=== PATIENT | male | born 1955 | race American Indian/Alaskan Native ===

== ENCOUNTER 2017-02-02 13:17 | Outpatient (CLI) | payer BC ==
--- NOTE | 2017-02-03 12:22 | Magnetic Resonance Report ---
MRI of the lumbar spine without contrast. History: L5 radiculopathy. Procedure: Sagittal T1-weighted, T2-weighted, inversion recovery images, and axial T1 and T2 weighted images were performed. Findings: Motion artifact degrades image quality on several sequences, especially the axial images. The L1 and L2-3 levels are unremarkable. At the L3-4 level, there is moderate disc space narrowing with reactive changes of the endplates. At the L4-5 level, there is severe disc space narrowing with reactive changes at both endplates. There is mild retrolisthesis of L4 on 5 due to degenerative changes. There is a mild central disc bulge. There is facet joint DJD and hypertrophy with mild ligamentum flavum hypertrophy. There is bilateral foraminal stenosis. L5-S1, there is moderate disc space narrowing with no significant disc bulge or herniation. There is a transitional vertebra at S1. The conus is in normal position. Multiple Schmorl's nodes are seen throughout the lower thoracic and upper lumbar spine. Impression: Multilevel degenerative disc disease as detailed above, most pronounced at L4-5 where there is associated mild retrolisthesis of L4 on 5 with bilateral foraminal stenosis.
--- NOTE | 2017-02-09 11:27 | XRay Report ---
SCOLIOSIS SURVEY, ONE VIEW History: Scoliosis, L5 radiculopathy. Findings: A limited AP view of the thoracic and lumbar spine is presented. There is poor positioning of the patient. 12 thoracic vertebra and 5 lumbar vertebra are identified. There is moderate spondylosis. No fracture or bone lesion. Mild dextroscoliosis from the superior endplate of T5 to the inferior endplate of T11 measures 6.4 degrees. Mild compensatory levoscoliosis from the superior endplate of T12 to the inferior endplate of L5 measures 7.7 degrees. Impression: Mild scoliosis as described. Spondylosis.
== END 2017-02-02 13:18 | disposition home or self-care (01) ==
LOC: MRI 13:17
PROVIDERS: ATTEND Specialist
DX: M48.06 Spinal stenosis, lumbar region (principal); M47.896 Other spondylosis, lumbar region; M51.46 Schmorl's nodes, lumbar region; M51.44 Schmorl's nodes, thoracic region; M51.26 Other intervertebral disc displacement, lumbar region
CPT/HCPCS: 72081; 72148

== ENCOUNTER 2017-12-25 19:10 | Inpatient (IN) | payer BC ==
--- NOTE | 2017-12-25 20:23 | Emergency Department Report ---
ED Fall HPI - General Chief Complaint: Pain General Stated Complaint: FALL/ HIP PAIN Time Seen by Provider: 12/25/17 20:08 Source: patient Mode of arrival: Stretcher - History of Present Illness Initial Comments: Mr. Paniagua is a very pleasant 62-year-old male who presents with fall. He has a history of gait instability for the last 2 years. He also has a history of alcoholic liver cirrhosis and chronic kidney disease. He is followed by [facility] for primary care. He also followed by [facility]. He also followed by orthopedic surgeon Dr. Mcqueen. He requires a cane with ambulation. However when attempting to close shades at home on Thursday, he fell to his left. He fell onto his left hip. He has severe pain. is noted worsening generalized weakness over the last week. He does have a history of elevated ammonia levels. However he does not like taking the lactulose due to GI effects. did notice that he did have some confusion and hallucinations. However when she was able to sneak in a dose of lactulose, he appeared much better after a bowel movement. Currently severe pain is in the left hip. He has had gait instability which has led to extensive outpatient evaluation. He does have known lumbar radiculopathy. [facility] is evaluating for a potential neurological causes. Complaint: fall Fall From: standing When Fall Occurred: other (Thursday 4 days ago) Fall Witnessed: yes, by family Place Fall Occurred: home Loss of Consciousness: none Prolonged Down Time?: no Symptoms Prior to Fall: none Location: other (left hip left shoulder left ankle) Severity: severe Quality: sharp Context: tripped/slipped - Related Data Allergies Allergy/AdvReac Type Severity Reaction Status Date / Time shellfish derived Allergy Swelling Unverified 02/02/17 13:17 ED Review of Systems ROS: Stated complaint: FALL/ HIP PAIN Other details as noted in HPI Constitutional: no symptoms reported, malaise. denies: fever ENT: denies: throat pain Respiratory: denies: cough Cardiovascular: denies: chest pain, palpitations Gastrointestinal: denies: abdominal pain, nausea, vomiting Neurological: confusion, abnormal gait. denies: headache, numbness, paresthesias ED Past Medical Hx - Past Medical History Hx Hypertension: Yes - Surgical History Past Surgical History?: No - Social History Smoking Status: Never Smoker ED Physical Exam - General Limitations: Language Barrier General appearance: alert, in no apparent distress, other (pleasant alert insightful able to give a full history.) - Head Head exam: Present: atraumatic, normocephalic - Eye Eye exam: Present: normal appearance. Absent: scleral icterus, conjunctival injection - ENT ENT exam: Present: mucous membranes moist - Neck Neck exam: Present: normal inspection. Absent: tenderness, meningismus - Respiratory Respiratory exam: Present: normal lung sounds bilaterally. Absent: respiratory distress, wheezes, rales, rhonchi - Cardiovascular Cardiovascular Exam: Present: regular rate, normal rhythm. Absent: systolic murmur, diastolic murmur, rubs, gallop - GI/Abdominal GI/Abdominal exam: Present: soft, normal bowel sounds. Absent: distended, tenderness, guarding, rebound - Rectal Rectal exam: Present: deferred - Extremities Exam Extremities exam: Present: other (left hip tenderness skin intact, no shoulder tenderness full range of motion, no ankle tenderness full range of motion) - Back Exam Back exam: Present: normal inspection - Neurological Exam Neurological exam: Present: alert, oriented X3 - Psychiatric Psychiatric exam: Present: normal affect, normal mood - Skin Skin exam: Present: warm, dry, intact, normal color. Absent: rash - Other Other exam information: 2+ DP pulse both extremities Left lower extremity: Shortened and externally rotated and adducted ED Course Vital Signs 12/25/17 12/25/17 19:18 20:13 Temperature 98.4 F Pulse Rate 80 Respiratory 18 18 Rate Blood Pressure 138/92 ED Medical Decision Making - Lab Data Result diagrams: 12/25/17 20:46 12/25/17 20:46 Laboratory Results - last 24 hr 12/25/17 12/25/17 12/25/17 20:46 20:46 20:46 WBC 3.1 L RBC 3.29 L Hgb 10.2 L Hct 34.0 L MCV 103 H MCH 31 MCHC 30 L RDW 17.6 H Plt Count 127 L [place] % (Auto) Wireless Field Technician Sodium 138 Potassium 4.7 Chloride 100.8 Carbon Dioxide 21 L Anion Gap 21 BUN 84 H Creatinine 5.4 H Estimated GFR 13 BUN/Creatinine Ratio 16 Glucose 119 H Calcium 9.0 Total Bilirubin 0.50 AST 35 ALT 14 Alkaline Phosphatase 122 Ammonia 45.0 Total Protein 6.4 Albumin 3.5 L Albumin/Globulin Ratio 1.2 Vital Signs - 24 hr 12/25/17 12/25/17 19:18 20:13 Temperature 98.4 F Pulse Rate 80 Respiratory 18 18 Rate Blood Pressure 138/92 - EKG Data 12/25/17 21:36 rate 85 bpm left axis deviation no signs of ischemia no ST elevation NSR - Radiology Data Radiology results: image reviewed interpreted by me: Left intertrochanteric femur fracture - Medical Decision Making Mr. Paniagua presents with fall and subsequent generalized weakness. baseline gait instability. Left intertrochanteric femur fracture. Dr. Farley orthopedic surgeon will consult. Dr. Reddy hospitalist will admit. Critical care attestation.: If time is entered above; I have spent that time in minutes in the direct care of this critically ill patient, excluding procedure time. ED Disposition Clinical Impression: Femur fracture, left, Cirrhosis, CKD (chronic kidney disease) Disposition: OP ADMIT IP TO THIS HOSP Is pt being admited?: Yes Does the pt Need Aspirin: No Condition: Stable Referrals: PRIMARY CARE, [Primary Care Provider] - 3-5 Days Time of Disposition: 20:27
[2017-12-25] MEDS ORDERED: ZOFRAN IV ONE ×2 (20:28→22:41)
[2017-12-25] MEDS ORDERED: MORPHINE IV ONE (20:28)
--- NOTE | 2017-12-25 20:47 | XRay Report ---
FINAL REPORT EXAM: XR SHOULDER 2+V LT HISTORY: fall TECHNIQUE: 3 views of the left shoulder PRIORS: None. FINDINGS: There is no evidence of acute fracture or subluxation. The glenohumeral and acromioclavicular joints are normally aligned. There is mild osteophyte formation of the acromioclavicular joint. The bones are normally mineralized. The soft tissues are unremarkable. IMPRESSION: No evidence of acute fracture
--- NOTE | 2017-12-25 20:50 | XRay Report ---
FINAL REPORT EXAM: XR KNEE 1-2V LT HISTORY: post fall knee pain TECHNIQUE: Two portable views of the left knee PRIORS: None. FINDINGS: The bones are normally aligned and mineralized. The joint spaces are well-preserved. There is no evidence of acute fracture. The soft tissues are unremarkable. IMPRESSION: No evidence of acute fracture or subluxation.
--- NOTE | 2017-12-25 20:59 | XRay Report ---
FINAL REPORT EXAM: XR FOOT 2V LT HISTORY: post fall foot pain TECHNIQUE: Two views of the left foot PRIORS: None. FINDINGS: The bones are diffusely demineralized. There small plantar and Achilles calcaneal spurs. There is a small erosion on the medial side of the distal 1st proximal phalanx near the interphalangeal joint with sclerotic margins. Soft tissues are unremarkable. IMPRESSION: 1. No evidence of acute fracture 2. Chronic erosion of the 1st proximal phalanx most likely due to chronic erosive is arthritis.
--- NOTE | 2017-12-25 21:04 | XRay Report ---
FINAL REPORT EXAM: XR HIP 2-3V LT HISTORY: post fall hip pain TECHNIQUE: Two views of the left hip PRIORS: None. FINDINGS: There is a nondisplaced intertrochanteric fracture of the left femoral neck. The left femoral head is aligned in the acetabulum. The visualized pelvic bones are intact. The right hip appears normally aligned and well preserved. The soft tissues are unremarkable. IMPRESSION: Acute nondisplaced intertrochanteric fracture of the left femoral neck
[2017-12-25 21:13] LABS: Mean Corpuscular HGB Conc 30 % (32-34); Mean Corpuscular Hemoglobin 31 pg (28-32); Mean Corpuscular Volume 103 fl (84-94); Platelet Count 127 K/mm3 (140-440); Red Blood Count 3.29 M/mm3 (3.65-5.03); Red Cell Distribution Width 17.6 % (13.2-15.2)
[2017-12-25 21:15] LABS: Hemoglobin 10.2 gm/dl (11.8-15.2)
[2017-12-25 21:18] LABS: Albumin 3.5 g/dL (3.9-5)
[2017-12-25 21:36] LABS: INR 1.04 (0.87-1.13)
[2017-12-25 21:37] LABS: Partial Thromboplastin Time 31.8 Sec. (24.2-36.6)
[2017-12-25] MEDS ORDERED: DILAUDID ONE (22:32)
[2017-12-25] MEDS ORDERED: ZOFRAN ONE (22:32)
[2017-12-25] MEDS ORDERED: DILAUDID IV ONE (22:40)
[2017-12-25 22:49] LABS: Basophils % (Manual) 0 % (0.0-1.8); RBC Morphology Normal; Total Cells Counted 100
--- NOTE | 2017-12-26 05:21 | History and Physical Report ---
History of Present Illness Date of examination: 12/25/17 Date of admission: 12/25/17 22:47 Chief complaint: Chief complaint: Status post fall 4 days ago and unable to walk History of present illness: History of Present Illness: 62-year-old male presents to the ER after a fall. Patient has a history of unsteady gait for the last 2 years. Patient also has a history of alcoholic liver cirrhosis and chronic kidney disease. Patient fell on Thursday when he was attempting to close the shades at home. He fell onto his left hip. Pain is 10 on a Scale of 1-10. Unable to Walk since Thursday Which Is 4 Days Ago. Exacerbated by any movement. Relieved by rest. Past Medical History Hypertension: Yes Cirrhosis CKD Surgical History Past Surgical History?: No Social History Smoking Status: Never Smoker Family History Htn Review of Systems ROS: Stated complaint: FALL/ HIP PAIN Other details as noted in HPI Constitutional: no symptoms reported, malaise. denies: fever ENT: denies: throat pain Respiratory: denies: cough Cardiovascular: denies: chest pain, palpitations Gastrointestinal: denies: abdominal pain, nausea, vomiting Neurological: confusion, abnormal gait. denies: headache, numbness, paresthesias Medications and Allergies Allergies Allergy/AdvReac Type Severity Reaction Status Date / Time shellfish derived Allergy Swelling Unverified 02/02/17 13:17 Active Meds: Active Medications Pneumococcal Polyvalent Vaccine (Pneumovax 23) 0.5 ml IM .ONCE ONE Stop: 12/28/17 12:01 Review of Systems All systems: negative Exam - Constitutional Vitals: Temp Pulse Resp BP Pulse Ox 99.9 F H 85 20 137/95 91 12/26/17 00:02 12/26/17 00:02 12/26/17 00:02 12/26/17 00:02 12/26/17 00:02 General appearance: Present: no acute distress, well-nourished - EENT Eyes: Present: PERRL ENT: hearing intact, clear oral mucosa - Neck Neck: Present: supple, normal ROM - Respiratory Respiratory effort: normal Respiratory: bilateral: CTA - Cardiovascular Heart rate: 80 Rhythm: regular Heart Sounds: Present: S1 & S2. Absent: rub, click - Extremities Extremities: no ischemia, pulses intact, pulses symmetrical, No edema Peripheral Pulses: within normal limits - Abdominal General gastrointestinal: Present: soft, non-tender, non-distended, normal bowel sounds Male genitourinary: Present: normal - Integumentary Integumentary: Present: clear, warm, dry - Musculoskeletal Musculoskeletal: strength equal bilaterally, other (decreased range of motion at the left hip. LLE abducted and externally rotated) - Psychiatric Psychiatric: appropriate mood/affect, intact judgment & insight - Neurologic Neurologic: CNII-XII intact, moves all extremities - Allied Health Allied health notes reviewed: nursing, case management Results - Labs CBC & Chem 7: 12/25/17 20:46 12/25/17 20:46 Labs: Laboratory Last Values WBC 3.1 K/mm3 (4.5-11.0) L 12/25/17 20:46 RBC 3.29 M/mm3 (3.65-5.03) L 12/25/17 20:46 Hgb 10.2 gm/dl (11.8-15.2) L 12/25/17 20:46 Hct 34.0 % (35.5-45.6) L 12/25/17 20:46 MCV 103 fl (84-94) H 12/25/17 20:46 MCH 31 pg (28-32) 12/25/17 20:46 MCHC 30 % (32-34) L 12/25/17 20:46 RDW 17.6 % (13.2-15.2) H 12/25/17 20:46 Plt Count 127 K/mm3 (140-440) L 12/25/17 20:46 [place] % (Auto) Vehicle Fuel Systems Converter 12/25/17 20:46 Add Manual Diff Complete 12/25/17 20:46 Total Counted 100 12/25/17 20:46 Seg Neuts % (Manual) 54.0 % (40.0-70.0) 12/25/17 20:46 Band Neutrophils % 0 % 12/25/17 20:46 Lymphocytes % (Manual) 22.0 % (13.4-35.0) 12/25/17 20:46 Reactive Lymphs % (Man) 0 % 12/25/17 20:46 Monocytes % (Manual) 22.0 % (0.0-7.3) H 12/25/17 20:46 Eosinophils % (Manual) 2.0 % (0.0-4.3) 12/25/17 20:46 Basophils % (Manual) 0 % (0.0-1.8) 12/25/17 20:46 Metamyelocytes % 0 % 12/25/17 20:46 Myelocytes % 0 % 12/25/17 20:46 Promyelocytes % 0 % 12/25/17 20:46 Blast Cells % 0 % 12/25/17 20:46 Nucleated RBC % Not Reportable 12/25/17 20:46 Seg Neutrophils # Man 1.7 K/mm3 (1.8-7.7) L 12/25/17 20:46 Band Neutrophils # 0.0 K/mm3 12/25/17 20:46 Lymphocytes # (Manual) 0.7 K/mm3 (1.2-5.4) L 12/25/17 20:46 Abs React Lymphs (Man) 0.0 K/mm3 12/25/17 20:46 Monocytes # (Manual) 0.7 K/mm3 (0.0-0.8) 12/25/17 20:46 Eosinophils # (Manual) 0.1 K/mm3 (0.0-0.4) 12/25/17 20:46 Basophils # (Manual) 0.0 K/mm3 (0.0-0.1) 12/25/17 20:46 Metamyelocytes # 0.0 K/mm3 12/25/17 20:46 Myelocytes # 0.0 K/mm3 12/25/17 20:46 Promyelocytes # 0.0 K/mm3 12/25/17 20:46 Blast Cells # 0.0 K/mm3 12/25/17 20:46 WBC Morphology Not Reportable 12/25/17 20:46 Hypersegmented Neuts Not Reportable 12/25/17 20:46 Hyposegmented Neuts Not Reportable 12/25/17 20:46 Hypogranular Neuts Not Reportable 12/25/17 20:46 Smudge Cells Not Reportable 12/25/17 20:46 Toxic Granulation Not Reportable 12/25/17 20:46 Toxic Vacuolation Not Reportable 12/25/17 20:46 Dohle Bodies Not Reportable 12/25/17 20:46 Pelger-Huet Anomaly Not Reportable 12/25/17 20:46 Caitlin Rods Not Reportable 12/25/17 20:46 Platelet Estimate Not Reportable 12/25/17 20:46 Clumped Platelets Not Reportable 12/25/17 20:46 Plt Clumps, EDTA Not Reportable 12/25/17 20:46 Large Platelets Not Reportable 12/25/17 20:46 Giant Platelets Not Reportable 12/25/17 20:46 Platelet Satelliting Not Reportable 12/25/17 20:46 Plt Morphology Comment Not Reportable 12/25/17 20:46 RBC Morphology Normal 12/25/17 20:46 Dimorphic RBCs Not Reportable 12/25/17 20:46 Polychromasia Not Reportable 12/25/17 20:46 Hypochromasia Not Reportable 12/25/17 20:46 Poikilocytosis Not Reportable 12/25/17 20:46 Anisocytosis Not Reportable 12/25/17 20:46 Microcytosis Not Reportable 12/25/17 20:46 Macrocytosis Not Reportable 12/25/17 20:46 Spherocytes Not Reportable 12/25/17 20:46 Pappenheimer Bodies Not Reportable 12/25/17 20:46 Sickle Cells Not Reportable 12/25/17 20:46 Target Cells Not Reportable 12/25/17 20:46 Tear Drop Cells Not Reportable 12/25/17 20:46 Ovalocytes Not Reportable 12/25/17 20:46 Helmet Cells Not Reportable 12/25/17 20:46 [place] Bodies Not Reportable 12/25/17 20:46 [place] Rings Not Reportable 12/25/17 20:46 [place] Cells Not Reportable 12/25/17 20:46 Bite Cells Not Reportable 12/25/17 20:46 Crenated Cell Not Reportable 12/25/17 20:46 Elliptocytes Not Reportable 12/25/17 20:46 Acanthocytes (Spur) Not Reportable 12/25/17 20:46 Rouleaux Not Reportable 12/25/17 20:46 Hemoglobin C Crystals Not Reportable 12/25/17 20:46 Schistocytes Not Reportable 12/25/17 20:46 Malaria parasites Not Reportable 12/25/17 20:46 [place] Bodies Not Reportable 12/25/17 20:46 Hem Pathologist Commnt No 12/25/17 20:46 PT 14.1 Sec. (12.2-14.9) 12/25/17 20:46 INR 1.04 (0.87-1.13) 12/25/17 20:46 APTT 31.8 Sec. (24.2-36.6) 12/25/17 20:46 Sodium 138 mmol/L (137-145) 12/25/17 20:46 Potassium 4.7 mmol/L (3.6-5.0) 12/25/17 20:46 Chloride 100.8 mmol/L (98-107) 12/25/17 20:46 Carbon Dioxide 21 mmol/L (22-30) L 12/25/17 20:46 Anion Gap 21 mmol/L 12/25/17 20:46 BUN 84 mg/dL (9-20) H 12/25/17 20:46 Creatinine 5.4 mg/dL (0.8-1.5) H 12/25/17 20:46 Estimated GFR 13 ml/min 12/25/17 20:46 BUN/Creatinine Ratio 16 % 12/25/17 20:46 Glucose 119 mg/dL (75-100) H 12/25/17 20:46 Calcium 9.0 mg/dL (8.4-10.2) 12/25/17 20:46 Total Bilirubin 0.50 mg/dL (0.1-1.2) 12/25/17 20:46 AST 35 units/L (5-40) 12/25/17 20:46 ALT 14 units/L (7-56) 12/25/17 20:46 Alkaline Phosphatase 122 units/L (35-129) 12/25/17 20:46 Ammonia 45.0 umol/L (25-60) 12/25/17 20:46 Total Protein 6.4 g/dL (6.3-8.2) 12/25/17 20:46 Albumin 3.5 g/dL (3.9-5) L 12/25/17 20:46 Albumin/Globulin Ratio 1.2 % 12/25/17 20:46 - Imaging and Cardiology Imaging and Cardiology: Left hip x-ray FINDINGS: There is a nondisplaced intertrochanteric fracture of the left femoral neck. The left femoral head is aligned in the acetabulum. The visualized pelvic bones are intact. The right hip appears normally aligned and well preserved. The soft tissues are unremarkable. IMPRESSION: Acute nondisplaced intertrochanteric fracture of the left femoral neck Assessment and Plan Advance Directives: Yes (Full code) VTE prophylaxis?: Chemical Plan of care discussed with patient/family: Yes - Patient Problems (1) Femur fracture, left Current Visit: Yes Status: Acute Qualifiers: Encounter type: initial encounter Femur location: intertrochanteric Fracture type: closed Plan to address problem: L Intertrochanteric fracture Dr. Farley consulted Patient kept nothing by mouth (2) Hypertension Current Visit: Yes Status: Chronic Qualifiers: Hypertension type: essential hypertension Qualified Code(s): I10 - Essential (primary) hypertension Plan to address problem: Losartan 100 mg once a day (3) Cirrhosis Current Visit: Yes Status: Chronic Qualifiers: Hepatic cirrhosis type: alcoholic cirrhosis Ascites presence: without ascites Qualified Code(s): K70.30 - Alcoholic cirrhosis of liver without ascites Plan to address problem: Stable Ammonia level normal (4) Anemia Current Visit: Yes Status: Chronic Qualifiers: Anemia type: iron deficiency Plan to address problem: Anemia sec to CKD Iron levels ordered (5) CKD (chronic kidney disease) Current Visit: Yes Status: Chronic Qualifiers: Chronic kidney disease stage: stage 5, not on chronic dialysis Qualified Code(s): N18.5 - Chronic kidney disease, stage 5 Plan to address problem: Nephrology permastone mechanic consulted (6) DVT prophylaxis Current Visit: Yes Status: Acute Plan to address problem: on SCD's GI prophylaxis with Famotidine
[2017-12-26] MEDS ORDERED: PERCOCET 5/325 PO PRN (05:29)
[2017-12-26] MEDS ORDERED: SODIUM CHLORIDE FLUSH SYRINGE 10 ML IV PRN (05:29)
[2017-12-26] MEDS ORDERED: ZOFRAN IV PRN (05:29)
[2017-12-26] MEDS ORDERED: TYLENOL PO PRN (05:29)
[2017-12-26] MEDS ORDERED: COZAAR PO SCH (10:00)
[2017-12-26] MEDS: SODIUM CHLORIDE FLUSH SYRINGE 10 ML IV SCH (10:00)
[2017-12-26] MEDS: PEPCID IV SCH (10:06)
[2017-12-26] MEDS: D5NS 1,000 ML IV SCH ×2 (10:09→22:32)
--- NOTE | 2017-12-26 11:00 | Consultation ---
History of Present Illness - History of Present Illness Thank you for the consultation ! History of present illness: Patient is a 62-year-old -[place] male was currently being followed by Dr. Young at [facility] nephrology, and has been currently admitted here with hip fracture requiring repair. Patient came to the hospital after sustaining a fall he has been having issues with it for nearly 2 years and does have a history of alcohol like liver disease as well as chronic kidney disease patient has been requiring a cane for ambulation. During this admission has been noted to have left intertrochanteric femur fracture for which Dr. Farley has been consulted for repair nephrology consultation was placed for management of severe renal failure patient is currently being followed by Dr. Young. , Patient was stuart noted to be in severe renal failure however when I discussed with Dr. Young his renal function has been progressively declining over time. Patient does complain of poor appetite, and feeling cold at times but no problems with a nausea and vomiting, patient denies having any difficulty voiding Events of this hospitalization noted Past medical history: chronic kidney disease hypertension Progression of renal failure Gout hyperuricemia Current allergies: Reviewed Family history: Reviewed Social history: Reviewed Review of system is positive for All other review of system are negative at this time Physical examination General: No acute distress HEENT: Oral mucosa dry no pharyngeal erythema no nasal bleeding Neck: Supple no evidence of any jugular venous distention no masses Chest: Clear to auscultation anteriorly and posteriorly Heart: Regular rate and rhythm S1 and S2 heard no S3-S4 or any pericardial rub Abdomen: Soft nontender bowel sounds present no renal bruit no suprapubic masses no CVA tenderness Extremity: Dry skin less than 1+ edema no peripheral petechial rashes Endocrine: Thyroid not enlarged Psychiatric: No evidence of any agitation or aggression noted Musculoskeletal: No joint effusion noted Lab studies and pertinent imagings were reviewed My assessment and plan are as follows Thank you for the consultation My assessment and plan are as follows Severe renal failure in a patient who does have underlying chronic kidney disease baseline creatinine was around 3 last year discussed with his primary golf cart assembler Dr. Young, given that patient has had hip fracture and has significantly elevated BUN creatinine has risk of complications during and postop could be high and hence patient will need to start renal replacement therapy at least 2 treatments for now to correct his uremia significantly elevated BUN creatinine he will also require some gentle hydration Risk and benefit has been discussed with the patient would also discussed with patient's At this time would like to discontinue furosemide which is getting 40 mg once a day according to his golf cart assembler patient does periodically get prerenal Dr. Young also agrees that patient should be initiated on renal replacement therapy I did discuss with him patient's case at length he has known this patient chronically in the clinic As far as gabapentin dose is concerned he should be reduced to 300 mg once a day which also increases fall risk Discontinue colchicine due to chronic kidney disease risk of neuropathy myopathies very high Patient adequately counseled and educated regarding all the renal related issues Patient does not need to be on losartan at this time given the severity of renal failure Patient was adequately counseled and educated regarding all the renal related issues, care plan was also discusse patient's at minnie All questions were answered is in agreement, with initiation of renal rapy Renal prognosis remains guarded at this time to follow, necessary labs and imagings will be honored as indicated by the clinical course We'll continue to follow and make recommendation from renal standpoint Thank you for the consultation. Medications and Allergies Allergies Allergy/AdvReac Type Severity Reaction Status Date / Time shellfish derived Allergy Swelling Verified 12/26/17 11:44 Home Medications Medication Instructions Recorded Confirmed Last Taken Type Amlodipine Besylate [Norvasc] 5 mg PO DAILY 12/26/17 12/26/17 12/25/17 History Atenolol [Tenormin] 50 mg PO DAILY 12/26/17 12/26/17 12/25/17 History Colchicine [Mitigare] 0.6 mg PO DAILY 12/26/17 12/26/17 12/25/17 History Febuxostat [Uloric] 40 mg PO DAILY 12/26/17 12/26/17 12/25/17 History Furosemide [Lasix TAB] 40 mg PO QDAY 12/26/17 12/26/17 12/25/17 History Gabapentin [Neurontin] 300 mg PO Q8HR 12/26/17 12/26/17 12/25/17 History Iron 18 mg PO QDAY 12/26/17 12/26/17 12/25/17 History Magnesium 250 mg PO DAILY 12/26/17 12/26/17 12/25/17 History Milk Thistle 175 mg PO DAILY 12/26/17 12/26/1712/25/18 History Multivit-Min/FA/Lycopen/Lutein 1 each PO DAILY 12/26/17 12/26/17 12/25/17 History [Men 50 Plus Multivitamin Tab] Omeprazole 20 mg PO DAILY 12/26/17 12/26/17 12/25/17 History Travoprost [Travatan Z] 2.5 ml OP DAILY 12/26/17 12/26/17 12/25/17 History traMADol [Ultram] 50 mg PO Q6HR PRN 12/26/17 12/26/17 Unknown History Active Meds: Active Medications Acetaminophen (Tylenol) 650 mg PO Q4H PRN PRN Reason: Pain MILD(1-3)/Fever >100.5/LÓPEZ Famotidine (Pepcid) 20 mg IV QAM [facility] Last Admin: 12/26/17 10:06 Dose: 20 mg Dextrose/Sodium Chloride (D5ns) 1,000 mls @ 75 mls/hr IV DIRECT [facility] Last Admin: 12/26/17 10:09 Dose: 75 mls/hr Losartan Potassium (Cozaar) 100 mg PO QDAY [facility] Morphine Sulfate (Morphine) 2 mg IV Q4H PRN PRN Reason: Pain, Moderate (4-6) Ondansetron HCl (Zofran) 4 mg IV Q8H PRN PRN Reason: Nausea And Vomiting Oxycodone/Acetaminophen (Percocet 5/325) 1 tab PO Q6H PRN PRN Reason: Pain, Moderate (4-6) Pneumococcal Polyvalent Vaccine (Pneumovax 23) 0.5 ml IM .ONCE ONE Stop: 12/28/17 12:01 Sodium Chloride (Sodium Chloride Flush Syringe 10 Ml) 10 ml IV BID [facility] Sodium Chloride (Sodium Chloride Flush Syringe 10 Ml) 10 ml IV PRN PRN PRN Reason: LINE FLUSH Exam - Vital Signs Vital signs: Vital Signs Temp Pulse Resp BP 98.4 F 80 18 138/92 12/25/17 19:18 12/25/17 19:18 12/25/17 19:18 12/25/17 19:18 Results - Lab Results 12/26/17 13:07 12/26/17 13:07 Most recent lab results Calcium 9.0 mg/dL (8.4-10.2) 12/25/17 20:46
[2017-12-26] MEDS ORDERED: NACL 0.9% 100 ML IV PRN (12:18)
--- NOTE | 2017-12-26 12:50 | Consultation ---
History of Present Illness - Reason for Consult Consult date: 12/26/17 HD access Requesting physician: ZAINAB CRUZ - History of Present Illness 62y male s/p fall admitted with hip fracture requiring surgical repair. Patient has CKD and alcoholic cirrhosis. In preparation for orthopedic surgery optimizing patient he is scheduled for HD. Patient needs temporary HD catheter placement today. Medications and Allergies Allergies Allergy/AdvReac Type Severity Reaction Status Date / Time shellfish derived Allergy Swelling Verified 12/26/17 11:44 Home Medications Medication Instructions Recorded Confirmed Last Taken Type Amlodipine Besylate [Norvasc] 5 mg PO DAILY 12/26/17 12/26/17 12/25/17 History Atenolol [Tenormin] 50 mg PO DAILY 12/26/17 12/26/17 12/25/17 History Colchicine [Mitigare] 0.6 mg PO DAILY 12/26/17 12/26/17 12/25/17 History Febuxostat [Uloric] 40 mg PO DAILY 12/26/17 12/26/17 12/25/17 History Furosemide [Lasix TAB] 40 mg PO QDAY 12/26/17 12/26/17 12/25/17 History Gabapentin [Neurontin] 300 mg PO Q8HR 12/26/17 12/26/17 12/25/17 History Iron 18 mg PO QDAY 12/26/17 12/26/17 12/25/17 History Magnesium 250 mg PO DAILY 12/26/17 12/26/17 12/25/17 History Milk Thistle 175 mg PO DAILY 12/26/17 12/26/17 12/25/17 History Multivit-Min/FA/Lycopen/Lutein 1 each PO DAILY 12/26/17 12/26/17 12/25/17 History [Men 50 Plus Multivitamin Tab] Omeprazole 20 mg PO DAILY 12/26/17 12/26/17 12/25/17 History Travoprost [Travatan Z] 2.5 ml OP DAILY 12/26/17 12/26/17 12/25/17 History traMADol [Ultram] 50 mg PO Q6HR PRN 12/26/17 12/26/17 Unknown History Active Meds: Active Medications Acetaminophen (Tylenol) 650 mg PO Q4H PRN PRN Reason: Pain MILD(1-3)/Fever >100.5/LÓPEZ Famotidine (Pepcid) 20 mg IV QAM [facility] Last Admin: 12/26/17 10:06 Dose: 20 mg Dextrose/Sodium Chloride (D5ns) 1,000 mls @ 75 mls/hr IV DIRECT [facility] Last Admin: 12/26/17 10:09 Dose: 75 mls/hr Sodium Chloride (Nacl 0.9%) 100 mls @ 999 mls/hr IV [facility]E PRN PRN Reason: Hypotension Morphine Sulfate (Morphine) 2 mg IV Q4H PRN PRN Reason: Pain, Moderate (4-6) Ondansetron HCl (Zofran) 4 mg IV Q8H PRN PRN Reason: Nausea And Vomiting Oxycodone/Acetaminophen (Percocet 5/325) 1 tab PO Q6H PRN PRN Reason: Pain, Moderate (4-6) Pneumococcal Polyvalent Vaccine (Pneumovax 23) 0.5 ml IM .ONCE ONE Stop: 12/28/17 12:01 Sodium Chloride (Sodium Chloride Flush Syringe 10 Ml) 10 ml IV BID [facility] Sodium Chloride (Sodium Chloride Flush Syringe 10 Ml) 10 ml IV PRN PRN PRN Reason: LINE FLUSH Exam - Constitutional Vitals: Temp Pulse Resp BP Pulse Ox 98.8 F 78 18 127/84 93 12/26/17 11:36 12/26/17 11:36 12/26/17 11:36 12/26/17 11:36 12/26/17 11:36 Results - Labs CBC & Chem 7: 12/25/17 20:46 12/25/17 20:46 Labs: Abnormal lab results 12/25/17 12/25/17 Range/Units 20:46 20:46 WBC 3.1 L (4.5-11.0) K/mm3 RBC 3.29 L (3.65-5.03) M/mm3 Hgb 10.2 L (11.8-15.2) gm/dl Hct 34.0 L (35.5-45.6) % MCV 103 H (84-94) fl MCHC 30 L (32-34) % RDW 17.6 H (13.2-15.2) % Plt Count 127 L (140-440) K/mm3 Monocytes % (Manual) 22.0 H (0.0-7.3) % Seg Neutrophils # Man 1.7 L (1.8-7.7) K/mm3 Lymphocytes # (Manual) 0.7 L (1.2-5.4) K/mm3 Carbon Dioxide 21 L (22-30) mmol/L BUN 84 H (9-20) mg/dL Creatinine 5.4 H (0.8-1.5) mg/dL Glucose 119 H (75-100) mg/dL Albumin 3.5 L (3.9-5) g/dL Assessment and Plan Patient with CKD plan for VasCath placement today Patient is NPO
[2017-12-26] MEDS ORDERED: HEPARIN/NS 5000 UNIT/500ML(CATH LAB) 500 ML IR ONE (13:23)
[2017-12-26 13:24] LABS: Hematocrit 28.9 % (35.5-45.6); Hemoglobin 9.5 gm/dl (11.8-15.2); Mean Corpuscular HGB Conc 33 % (32-34); Mean Corpuscular Hemoglobin 31 pg (28-32); Mean Corpuscular Volume 94 fl (84-94); Platelet Count 128 K/mm3 (140-440); Red Blood Count 3.06 M/mm3 (3.65-5.03); Red Cell Distribution Width 16.3 % (13.2-15.2)
[2017-12-26] MEDS ORDERED: XYLOCAINE 1%/ EPI 1:100,000 INFILTRATI ONE (13:24)
[2017-12-26] MEDS ORDERED: SUBLIMAZE ONE (13:24)
[2017-12-26] MEDS ORDERED: VERSED ONE (13:24)
[2017-12-26] MEDS ORDERED: NACL 0.9% 250ML 250 ML ONE (13:24)
[2017-12-26] MEDS ORDERED: BENADRYL ONE (13:29)
[2017-12-26 13:45] LABS: % Iron Saturation 6.5 %
[2017-12-26] MEDS: HEPARIN 10,000 UNITS/10 ML ONE ×2 (13:57→13:58)
--- NOTE | 2017-12-26 14:06 | Operative Report ---
Operative Report Operative Report: Operative note: Date: 12/26/2017 Preoperative diagnosis: Chronic kidney disease Postoperative diagnosis: Same. Operation: right internal jugular Vas-Cath insertion Surgeon: Mona Briceño. Asst.: None Anesthesia: Local with moderate sedation EBL: Minimal Findings: None Indications: 63-year-old male with coronary kidney disease was admitted for a hip fracture that required orthopedic surgery. Patient was supposed to be optimized for the procedure and therefore needed dialysis. Patient was explained risks and benefits of insertion of Vas-Cath. He agreed with procedure and signed informed consent. Operative details: Patient was brought to the Superintendent Power, prepped and draped right neck in a sterile fashion. After timeout performed and all team members in the agreement right femoral vein was accessed under ultrasound guidance with micropuncture needle and exchanged for micropuncture sheath. J wire was advanced in the right internal jugular vein and advanced into IVC under fluoroscopic guidance. Skin incision was made with 11 blade and serially dilated with subsequent insertion of Vas-Cath catheter 11.5 Fr 15cm in length. Ports were checked for good flow, flushed with saline and locked with 1.4 mL of heparin. Catheter was secured in place with 3-0 nylon stitches and sterile dressing applied. He tolerated the procedure well.
[2017-12-26 14:46] LABS: Basophils % (Manual) 0 % (0.0-1.8); Total Cells Counted 100
[2017-12-26 14:47] LABS: Platelet Estimate Consistent w Auto
--- NOTE | 2017-12-26 15:01 | Consultation ---
History of Present Illness - HPI Consult date: 12/26/17 Consult reason: fracture History of present illness: 62 y/o male with c/o left hip pain after fall 5 days ago at home, presented to our ED c/o leftt hip pain xrays taken revealed displaced left intertrochanteric hip fracture... Medications and Allergies Allergies Allergy/AdvReac Type Severity Reaction Status Date / Time shellfish derived Allergy Swelling Verified 12/26/17 11:44 Home Medications Medication Instructions Recorded Confirmed Last Taken Type Amlodipine Besylate [Norvasc] 5 mg PO DAILY 12/26/17 12/26/17 12/25/17 History Atenolol [Tenormin] 50 mg PO DAILY 12/26/17 12/26/17 12/25/17 History Colchicine [Mitigare] 0.6 mg PO DAILY 12/26/17 12/26/17 12/25/17 History Febuxostat [Uloric] 40 mg PO DAILY 12/26/17 12/26/17 12/25/17 History Furosemide [Lasix TAB] 40 mg PO QDAY 12/26/17 12/26/17 12/25/17 History Gabapentin [Neurontin] 300 mg PO Q8HR 12/26/17 12/26/17 12/25/17 History Iron 18 mg PO QDAY 12/26/17 12/26/17 12/25/17 History Magnesium 250 mg PO DAILY 12/26/17 12/26/17 12/25/17 History Milk Thistle 175 mg PO DAILY 12/26/17 12/26/17 12/25/17 History Multivit-Min/FA/Lycopen/Lutein 1 each PO DAILY 12/26/17 12/26/17 12/25/17 History [Men 50 Plus Multivitamin Tab] Omeprazole 20 mg PO DAILY 12/26/17 12/26/17 12/25/17 History Travoprost [Travatan Z] 2.5 ml OP DAILY 12/26/17 12/26/17 12/25/17 History traMADol [Ultram] 50 mg PO Q6HR PRN 12/26/17 12/26/17 Unknown History Active Meds: Active Medications Acetaminophen (Tylenol) 650 mg PO Q4H PRN PRN Reason: Pain MILD(1-3)/Fever >100.5/LÓPEZ Famotidine (Pepcid) 20 mg IV QAM [facility] Last Admin: 12/26/17 10:06 Dose: 20 mg Dextrose/Sodium Chloride (D5ns) 1,000 mls @ 75 mls/hr IV DIRECT [facility] Last Admin: 12/26/17 10:09 Dose: 75 mls/hr Sodium Chloride (Nacl 0.9%) 100 mls @ 999 mls/hr IV K[facility]LEE PRN PRN Reason: Hypotension Morphine Sulfate (Morphine) 2 mg IV Q4H PRN PRN Reason: Pain, Moderate (4-6) Ondansetron HCl (Zofran) 4 mg IV Q8H PRN PRN Reason: Nausea And Vomiting Oxycodone/Acetaminophen (Percocet 5/325) 1 tab PO Q6H PRN PRN Reason: Pain, Moderate (4-6) Pneumococcal Polyvalent Vaccine (Pneumovax 23) 0.5 ml IM .ONCE ONE Stop: 12/28/17 12:01 Sodium Chloride (Sodium Chloride Flush Syringe 10 Ml) 10 ml IV BID [facility] Sodium Chloride (Sodium Chloride Flush Syringe 10 Ml) 10 ml IV PRN PRN PRN Reason: LINE FLUSH Assessment and Plan Left hip fracture will require operative fixation once medical condition improves
--- NOTE | 2017-12-26 17:32 | Progress Note ---
Assessment and Plan Assessment and plan: 62-year-old male presents to the ER after a fall. Patient has a history of unsteady gait for the last 2 years. Patient also has a history of alcoholic liver cirrhosis and chronic kidney disease. Patient fell on Thursday when he was attempting to close the shades at home. He fell onto his left hip. Pain is 10 on a Scale of 1-10. Unable to Walk since Thursday Which Is 4 Days Ago. Exacerbated by any movement. Relieved by rest. (1) Femur fracture, left Current Visit: Yes Status: Acute Qualifiers: Encounter type: initial encounter Femur location: intertrochanteric Fracture type: closed Plan to address problem: L Intertrochanteric fracture Dr. Farley consulted Renal diet and NPO day before surgery (2) Hypertension Current Visit: Yes Status: Chronic Qualifiers: Hypertension type: essential hypertension Qualified Code(s): I10 - Essential (primary) hypertension Plan to address problem: Losartan 100 mg once a day- hold (3) Cirrhosis Current Visit: Yes Status: Chronic Qualifiers: Hepatic cirrhosis type: alcoholic cirrhosis Ascites presence: without ascites Qualified Code(s): K70.30 - Alcoholic cirrhosis of liver without ascites Plan to address problem: Stable Ammonia level normal (4) Anemia Current Visit: Yes Status: Chronic Qualifiers: Anemia type: iron deficiency Plan to address problem: Anemia sec to CKD Iron levels ordered (5) Acute on CKD (chronic kidney disease) Current Visit: Yes Status: Chronic Qualifiers: Chronic kidney disease stage: stage 5, not on chronic dialysis Qualified Code(s): N18.5 - Chronic kidney disease, stage 5 Plan to address problem: Nephrology production controller consulted AND DISCUSSED, vascular consulted for CATHETER PLACEMENT FOR DIALYSIS. WILL NEED 2-3 DIALYSIS PRIOR TO SURGERY BASELINE IN 2017 WAS 3.2 (6) DVT prophylaxis Current Visit: Yes Status: Acute Plan to address problem: on SCD's GI prophylaxis with Famotidine History Interval history: Patient seen and examined today, still with some pain at hip joint Hospitalist Physical - Physical exam Narrative exam: General appearance: Present: no acute distress, well-nourished - EENT Eyes: Present: PERRL ENT: hearing intact, clear oral mucosa - Neck Neck: Present: supple, normal ROM - Respiratory Respiratory effort: normal Respiratory: bilateral: CTA - Cardiovascular Heart rate: 80 Rhythm: regular Heart Sounds: Present: S1 & S2. Absent: rub, click - Extremities Extremities: no ischemia, pulses intact, pulses symmetrical, No edema Peripheral Pulses: within normal limits - Abdominal General gastrointestinal: Present: soft, non-tender, non-distended, normal bowel sounds Male genitourinary: Present: normal - Integumentary Integumentary: Present: clear, warm, dry - Musculoskeletal Musculoskeletal: strength equal bilaterally, other (decreased range of motion at the left hip. LLE abducted and externally rotated) - Psychiatric Psychiatric: appropriate mood/affect, intact judgment & insight - Neurologic Neurologic: CNII-XII intact, moves all extremities - Allied Health Allied health notes reviewed: nursing, case management - Constitutional Vitals: Temp Pulse Resp BP Pulse Ox 98.8 F 78 18 127/84 93 12/26/17 11:36 12/26/17 11:36 12/26/17 11:36 12/26/17 11:36 12/26/17 11:36 General appearance: Present: no acute distress, well-nourished Results - Labs CBC & Chem 7: 12/26/17 13:07 12/26/17 13:07 Labs: Laboratory Last Values WBC 3.1 K/mm3 (4.5-11.0) L 12/26/17 13:07 RBC 3.06 M/mm3 (3.65-5.03) L 12/26/17 13:07 Hgb 9.5 gm/dl (11.8-15.2) L 12/26/17 13:07 Hct 28.9 % (35.5-45.6) L 12/26/17 13:07 MCV 94 fl (84-94) 12/26/17 13:07 MCH 31 pg (28-32) 12/26/17 13:07 MCHC 33 % (32-34) 12/26/17 13:07 RDW 16.3 % (13.2-15.2) H 12/26/17 13:07 Plt Count 128 K/mm3 (140-440) L 12/26/17 13:07 [place] % (Auto) Veterinary Assistant 12/26/17 13:07 Add Manual Diff Complete 12/26/17 13:07 Total Counted 100 12/26/17 13:07 Seg Neuts % (Manual) 58.0 % (40.0-70.0) 12/26/17 13:07 Band Neutrophils % 0 % 12/26/17 13:07 Lymphocytes % (Manual) 17.0 % (13.4-35.0) 12/26/17 13:07 Reactive Lymphs % (Man) 0 % 12/26/17 13:07 Monocytes % (Manual) 23.0 % (0.0-7.3) H 12/26/17 13:07 Eosinophils % (Manual) 2.0 % (0.0-4.3) 12/26/17 13:07 Basophils % (Manual) 0 % (0.0-1.8) 12/26/17 13:07 Metamyelocytes % 0 % 12/26/17 13:07 Myelocytes % 0 % 12/26/17 13:07 Promyelocytes % 0 % 12/26/17 13:07 Blast Cells % 0 % 12/26/17 13:07 Nucleated RBC % Not Reportable 12/26/17 13:07 Seg Neutrophils # Man 1.8 K/mm3 (1.8-7.7) 12/26/17 13:07 Band Neutrophils # 0.0 K/mm3 12/26/17 13:07 Lymphocytes # (Manual) 0.5 K/mm3 (1.2-5.4) L 12/26/17 13:07 Abs React Lymphs (Man) 0.0 K/mm3 12/26/17 13:07 Monocytes # (Manual) 0.7 K/mm3 (0.0-0.8) 12/26/17 13:07 Eosinophils # (Manual) 0.1 K/mm3 (0.0-0.4) 12/26/17 13:07 Basophils # (Manual) 0.0 K/mm3 (0.0-0.1) 12/26/17 13:07 Metamyelocytes # 0.0 K/mm3 12/26/17 13:07 Myelocytes # 0.0 K/mm3 12/26/17 13:07 Promyelocytes # 0.0 K/mm3 12/26/17 13:07 Blast Cells # 0.0 K/mm3 12/26/17 13:07 WBC Morphology Not Reportable 12/26/17 13:07 Hypersegmented Neuts Not Reportable 12/26/17 13:07 Hyposegmented Neuts Not Reportable 12/26/17 13:07 Hypogranular Neuts Not Reportable 12/26/17 13:07 Smudge Cells Not Reportable 12/26/17 13:07 Toxic Granulation Not Reportable 12/26/17 13:07 Toxic Vacuolation Not Reportable 12/26/17 13:07 Dohle Bodies Not Reportable 12/26/17 13:07 Pelger-Huet Anomaly Not Reportable 12/26/17 13:07 Caitlin Rods Not Reportable 12/26/17 13:07 Platelet Estimate Consistent w auto 12/26/17 13:07 Clumped Platelets Not Reportable 12/26/17 13:07 Plt Clumps, EDTA Not Reportable 12/26/17 13:07 Large Platelets Not Reportable 12/26/17 13:07 Giant Platelets Not Reportable 12/26/17 13:07 Platelet Satelliting Not Reportable 12/26/17 13:07 Plt Morphology Comment Not Reportable 12/26/17 13:07 RBC Morphology Not Reportable 12/26/17 13:07 Dimorphic RBCs Not Reportable 12/26/17 13:07 Polychromasia Not Reportable 12/26/17 13:07 Hypochromasia Not Reportable 12/26/17 13:07 Poikilocytosis Not Reportable 12/26/17 13:07 Anisocytosis Not Reportable 12/26/17 13:07 Microcytosis Not Reportable 12/26/17 13:07 Macrocytosis Not Reportable 12/26/17 13:07 Spherocytes Not Reportable 12/26/17 13:07 Pappenheimer Bodies Not Reportable 12/26/17 13:07 Sickle Cells Not Reportable 12/26/17 13:07 Target Cells Not Reportable 12/26/17 13:07 Tear Drop Cells Not Reportable 12/26/17 13:07 Ovalocytes Not Reportable 12/26/17 13:07 Helmet Cells Not Reportable 12/26/17 13:07 [place] Bodies Not Reportable 12/26/17 13:07 [place] Rings Not Reportable 12/26/17 13:07 Sil Cells Not Reportable 12/26/17 13:07 Bite Cells Not Reportable 12/26/17 13:07 Crenated Cell Not Reportable 12/26/17 13:07 Elliptocytes Not Reportable 12/26/17 13:07 Acanthocytes (Spur) Not Reportable 12/26/17 13:07 Rouleaux Not Reportable 12/26/17 13:07 Hemoglobin C Crystals Not Reportable 12/26/17 13:07 Schistocytes Not Reportable 12/26/17 13:07 Malaria parasites Not Reportable 12/26/17 13:07 Trent Bodies Not Reportable 12/26/17 13:07 Hem Pathologist Commnt No 12/26/17 13:07 PT 14.1 Sec. (12.2-14.9) 12/25/17 20:46 INR 1.04 (0.87-1.13) 12/25/17 20:46 APTT 31.8 Sec. (24.2-36.6) 12/25/17 20:46 Sodium 139 mmol/L (137-145) 12/26/17 13:07 Potassium 4.7 mmol/L (3.6-5.0) 12/26/17 13:07 Chloride 101.6 mmol/L (98-107) 12/26/17 13:07 Carbon Dioxide 23 mmol/L (22-30) 12/26/17 13:07 Anion Gap 19 mmol/L 12/26/17 13:07 BUN 88 mg/dL (9-20) H 12/26/17 13:07 Creatinine 5.2 mg/dL (0.8-1.5) H 12/26/17 13:07 Estimated GFR 14 ml/min 12/26/17 13:07 BUN/Creatinine Ratio 17 % 12/26/17 13:07 Glucose 101 mg/dL (75-100) H 12/26/17 13:07 Hemoglobin A1c 5.0 % (4-6) 12/26/17 13:07 Calcium 9.0 mg/dL (8.4-10.2) 12/26/17 13:07 Iron 13 ug/dL (49-181) L 12/26/17 13:07 TIBC 200 mcg/dL (250-450) L 12/26/17 13:07 % Saturation 6.50 % 12/26/17 13:07 Transferrin 182 mg/dl (180-329) 12/26/17 13:07 Total Bilirubin 0.50 mg/dL (0.1-1.2) 12/25/17 20:46 AST 35 units/L (5-40) 12/25/17 20:46 ALT 14 units/L (7-56) 12/25/17 20:46 Alkaline Phosphatase 122 units/L (35-129) 12/25/17 20:46 Ammonia 45.0 umol/L (25-60) 12/25/17 20:46 Total Protein 6.4 g/dL (6.3-8.2) 12/25/17 20:46 Albumin 3.5 g/dL (3.9-5) L 12/25/17 20:46 Albumin/Globulin Ratio 1.2 % 12/25/17 20:46 Vitamin B12 1858 pg/mL (211-911) H 12/26/17 13:07
[2017-12-26 17:51] LABS: Hepatitis A Antibody IgM Non-Reactive (NonReactive); Hepatitis B Core IgM Non-Reactive (NonReactive); Hepatitis B Surface Antigen Non-Reactive (Negative); Hepatitis C Virus Antibody Non-Reactive (NonReactive)
[2017-12-26] MEDS ORDERED: NACL 0.9 (PRIMING MACHINE ONLY DIALYSIS) MC ONE (18:10)
--- NOTE | 2017-12-26 22:39 | Event Note ---
Date: 12/26/17 CODE MET Patient unresponsive Blood sugar 331, other vitals OK He was given narcan with good effect
[2017-12-27 06:05] LABS: Hematocrit 29.8 % (35.5-45.6); Hemoglobin 9.6 gm/dl (11.8-15.2); Mean Corpuscular HGB Conc 32 % (32-34); Mean Corpuscular Hemoglobin 31 pg (28-32); Mean Corpuscular Volume 96 fl (84-94); Platelet Count 117 K/mm3 (140-440); Red Blood Count 3.09 M/mm3 (3.65-5.03)
[2017-12-27 06:28] LABS: Albumin 3.4 g/dL (3.9-5); Calcium 8.6 mg/dL (8.4-10.2)
[2017-12-27 07:31] LABS: Total Cells Counted 100
[2017-12-27 07:32] LABS: Anisocytosis 1+; Band Neutrophils # (Manual) 0.6 K/mm3; Basophils % (Manual) 0 % (0.0-1.8); Eosinophils % (Manual) 0 % (0.0-4.3); Hypochromasia Few
[2017-12-27 07:33] LABS: Platelet Estimate Consistent w Auto; Tear Drop Cells Few
[2017-12-27] MEDS: SODIUM CHLORIDE FLUSH SYRINGE 10 ML IV SCH ×2 (10:15→22:48)
[2017-12-27] MEDS: PEPCID IV SCH (10:31)
--- NOTE | 2017-12-27 10:55 | Progress Note ---
Subjective Interval history: Patient was seen today for follow-up, on many renal related issues Patient currently denies having any symptoms of chest pain pressure shortness of breath he is feeling much better after one dialysis treatment more alert awake and animated came in to meet him today, dialysis treatment was well-tolerated Interdisciplinary notes were reviewed Vitals labs intake and output medications were reviewed from today Allergies: Reviewed Social history: Reviewed Family history: Reviewed Physical examination HEENT: Oral mucosa moist no pharyngeal erythema Neck: Supple no JVD Chest: Clear to auscultation no crackles rales or wheezes Heart: Regular rate and rhythm S1-S2 heard no S3-S4 Abdomen: Soft nontender no renal bruit no CVA tenderness no suprapubic fullness Extremity: Mild edema dry skin no peripheral cyanosis pulses palpable Neurological: Alert awake Musculoskeletal: No joint effusion noted Assessment and plan Acute kidney injury in a patient who doesn't history of advanced renal failure and is being followed by Dr. Richar Young, patient presented with broken hip was in severe renal failure and is doing much better after one dialysis treatment plan is to give him a second dialysis treatment today and if going well he can be considered for surgical repair of his hip tomorrow morning for a renal standpoint as long as patient is stable and labs look good As far as dialysis is concerned this can be continued as recently believe patient will need at least 2 treatments per week, he will need a dialysis clinic with Dr. Young's group, have had a long discussion with patient as well as his today about the plan of care, I have also discussed this with Dr. Young is well Patient has been taken off Lasix and losartan and maintain gentle hydration keep the Anderson catheter Encephalopathy appears to have improved significantly Doses of gabapentin has been reduced to once a day Hip fracture needing repair Labs were discussed with patient explained and simple [place] does have good understanding off renal related issues, Will continue to follow and make recommendation from renal standpoint Objective - Vital Signs Vital signs: Vital Signs - 12hr 12/26/17 12/27/17 12/27/17 23:33 04:39 07:36 Temperature 98.0 F 97.9 F 97.5 F L Pulse Rate 83 77 75 Respiratory 20 18 18 Rate Blood Pressure 144/82 153/96 Blood Pressure 130/96 [Right] O2 Sat by Pulse 95 99 100 Oximetry - Lab 12/27/17 05:49 12/27/17 05:49 Most recent lab results Calcium 8.6 mg/dL (8.4-10.2) 12/27/17 05:49
--- NOTE | 2017-12-27 12:24 | Progress Note ---
Assessment and Plan 62-year-old male presents to the ER after a fall. Patient has a history of unsteady gait for the last 2 years. Patient also has a history of alcoholic liver cirrhosis and chronic kidney disease. Patient fell on 12/20/17Monday when he was attempting to close the shades at home. He fell onto his left hip. Pain is 10 on a Scale of 1-10. Unable to Walk since Thursday Which Is 4 Days Ago. Exacerbated by any movement. Relieved by rest. - Femur fracture, left L Intertrochanteric fracture, displaced Dr. Farley consulted Renal diet and NPO day before surgery - Hyperglcycemia: A1c 5.6% Likely steroid induce. commence on low dose SSI - Hypertension Losartan 100 mg once a day- hold - Cirrhosis Stable Ammonia level normal - Anemia Anemia sec to CKD Iron levels ordered - Acute on Acute on CKD (chronic kidney disease) Nephrology following. commence on HD - DVT prophylaxis GI prophylaxis with Famotidine Subjective Date of service: 12/27/17 Principal diagnosis: displaced right intratrochenteric fx, MONI requiring HD, liver cirrhosis Interval history: Pt seen and examined. No new complaint. Had code MET called 12/26/17. Resuscitated with Narcan. Discussed with pt's nursed. Blood sugar increasing after solumedrol injetion. Objective - Constitutional Vitals: Vital Signs - 12hr 12/27/17 12/27/17 04:39 07:36 Temperature 97.9 F 97.5 F L Pulse Rate 77 75 Respiratory 18 18 Rate Blood Pressure 153/96 Blood Pressure 130/96 [Right] O2 Sat by Pulse 99 100 Oximetry General appearance: Present: no acute distress, well-nourished - EENT Eyes: PERRL, EOM intact - Neck Neck: supple, normal ROM - Respiratory Respiratory effort: normal Respiratory: bilateral: CTA - Cardiovascular Rhythm: regular Heart Sounds: Present: S1 & S2. Absent: gallop, rub Extremities: pulses intact, No edema, normal color, Full ROM - Gastrointestinal General gastrointestinal: Present: soft, non-tender, non-distended, normal bowel sounds - Integumentary Integumentary: clear, warm, dry - Musculoskeletal Musculoskeletal: generalized weakness, other (left hip pain from fracture) - Neurologic Neurologic: moves all extremities - Psychiatric Psychiatric: memory intact, appropriate mood/affect, intact judgment & insight - Labs CBC & Chem 7: 12/27/17 05:49 12/27/17 05:49 Labs: Abnormal lab results 12/26/17 12/26/17 12/26/17 Range/Units 13:07 13:07 13:07 WBC 3.1 L (4.5-11.0) K/mm3 RBC 3.06 L (3.65-5.03) M/mm3 Hgb 9.5 L (11.8-15.2) gm/dl Hct 28.9 L (35.5-45.6) % MCV (84-94) fl RDW 16.3 H (13.2-15.2) % Plt Count 128 L (140-440) K/mm3 Monocytes % (Manual) 23.0 H (0.0-7.3) % Seg Neutrophils # Man (1.8-7.7) K/mm3 Lymphocytes # (Manual) 0.5 L (1.2-5.4) K/mm3 BUN (9-20) mg/dL Creatinine (0.8-1.5) mg/dL Glucose (75-100) mg/dL POC Glucose (70-105) Iron 13 L (49-181) ug/dL TIBC 200 L (250-450) mcg/dL Total Protein (6.3-8.2) g/dL Albumin (3.9-5) g/dL Vitamin B12 1858 H (211-911) pg/mL 12/26/17 12/26/17 12/27/17 Range/Units 13:07 22:21 05:49 WBC 2.9 L (4.5-11.0) K/mm3 RBC 3.09 L (3.65-5.03) M/mm3 Hgb 9.6 L (11.8-15.2) gm/dl Hct 29.8 L (35.5-45.6) % MCV 96 H (84-94) fl RDW 16.0 H (13.2-15.2) % Plt Count 117 L (140-440) K/mm3 Monocytes % (Manual) 16.0 H (0.0-7.3) % Seg Neutrophils # Man 1.3 L (1.8-7.7) K/mm3 Lymphocytes # (Manual) 0.5 L (1.2-5.4) K/mm3 BUN 88 H (9-20) mg/dL Creatinine 5.2 H (0.8-1.5) mg/dL Glucose 101 H (75-100) mg/dL POC Glucose 306 H (70-105) Iron (49-181) ug/dL TIBC (250-450) mcg/dL Total Protein (6.3-8.2) g/dL Albumin (3.9-5) g/dL Vitamin B12 (211-911) pg/mL 12/27/17 12/27/17 12/27/17 Range/Units 05:49 06:28 07:39 WBC (4.5-11.0) K/mm3 RBC (3.65-5.03) M/mm3 Hgb (11.8-15.2) gm/dl Hct (35.5-45.6) % MCV (84-94) fl RDW (13.2-15.2) % Plt Count (140-440) K/mm3 Monocytes % (Manual) (0.0-7.3) % Seg Neutrophils # Man (1.8-7.7) K/mm3 Lymphocytes # (Manual) (1.2-5.4) K/mm3 BUN 54 H (9-20) mg/dL Creatinine 3.6 H (0.8-1.5) mg/dL Glucose 276 H (75-100) mg/dL POC Glucose 268 H 259 H (70-105) Iron (49-181) ug/dL TIBC (250-450) mcg/dL Total Protein 5.5 L (6.3-8.2) g/dL Albumin 3.4 L (3.9-5) g/dL Vitamin B12 (211-911) pg/mL
[2017-12-27] MEDS: MORPHINE IV PRN (16:04)
[2017-12-27] MEDS ORDERED: NACL 0.9% 100 ML IV PRN (16:17)
[2017-12-27] MEDS: HumaLOG SUB-Q SCH ×2 (16:42→22:56)
[2017-12-27] MEDS ORDERED: NACL 0.9 (PRIMING MACHINE ONLY DIALYSIS) MC ONE (22:38)
[2017-12-28] MEDS: MORPHINE IV PRN (06:49)
[2017-12-28] MEDS: SODIUM CHLORIDE FLUSH SYRINGE 10 ML IV SCH ×3 (06:52→21:37)
[2017-12-28] MEDS: HumaLOG SUB-Q SCH ×4 (08:00→23:35)
[2017-12-28] MEDS: PEPCID IV SCH (09:04)
--- NOTE | 2017-12-28 10:39 | Progress Note ---
Assessment and Plan - Patient Problems (1) Acute kidney injury superimposed on CKD Current Visit: Yes Status: Acute Plan to address problem: acute on CKD stage 4. Renal function and clinically feeling better after dialysis. Scheduled for left hip surgery tomorrow. Monitor labs, consider PRBC if Hb drops. If K, volume status ok- will hold dialysis tomorrow. (2) Anemia Current Visit: Yes Status: Chronic (3) Hypertension Current Visit: Yes Status: Chronic Qualifiers: Hypertension type: essential hypertension Qualified Code(s): I10 - Essential (primary) hypertension (4) Femur fracture, left Current Visit: Yes Status: Acute Qualifiers: Encounter type: initial encounter Femur location: intertrochanteric Fracture type: closed Subjective Date of service: 12/28/17 Principal diagnosis: displaced right intratrochenteric fx, MONI requiring HD, liver cirrhosis Interval history: alert, oriented, denies CP or SOB Objective - Vital Signs Vital signs: Vital Signs - 12hr 12/28/17 12/28/17 12/28/17 00:10 00:11 04:28 Temperature 98.5 F 98.4 F Pulse Rate 85 85 84 Respiratory 18 20 Rate Blood Pressure 138/92 153/98 Blood Pressure [Right] O2 Sat by Pulse 98 99 99 Oximetry 12/28/17 12/28/17 05:30 07:09 Temperature 98.8 F Pulse Rate 87 86 Respiratory 22 Rate Blood Pressure 134/95 Blood Pressure 138/91 [Right] O2 Sat by Pulse 98 Oximetry - General Appearance General appearance: well-developed EENT: mucous membranes moist Neck: no JVD Respiratory: Present: Clear to Ascultation Cardiology: regular Gastrointestinal: normoactive bowel sounds Neurologic: alert and oriented x3 Musculoskeletal: other (trace edema) Psychiatric: mood/affect appropriate, cooperative - Lab 12/28/17 11:30 12/28/17 11:30 Most recent lab results Calcium 8.6 mg/dL (8.4-10.2) 12/27/17 05:49
[2017-12-28] MEDS ORDERED: PNEUMOVAX 23 IM ONE (12:00)
[2017-12-28 12:01] LABS: Hemoglobin 8.9 gm/dl (11.8-15.2); Mean Corpuscular HGB Conc 33 % (32-34); Mean Corpuscular Hemoglobin 31 pg (28-32); Mean Corpuscular Volume 94 fl (84-94); Platelet Count 112 K/mm3 (140-440); Red Blood Count 2.88 M/mm3 (3.65-5.03); Red Cell Distribution Width 16.1 % (13.2-15.2)
--- NOTE | 2017-12-28 12:13 | Progress Note ---
Subjective Date of service: 12/28/17 Principal diagnosis: displaced right intratrochenteric fx, MONI requiring HD, liver cirrhosis Interval history: Pt seen and examined. No new complaint. Had code MET called 12/26/17. Resuscitated with Narcan. Discussed with pt's nursed. Blood sugar increasing after solumedrol injetion. Objective - Constitutional Vitals: Vital Signs - 12hr 12/28/17 12/28/17 12/28/17 04:28 05:30 07:09 Temperature 98.4 F 98.8 F Pulse Rate 84 87 86 Respiratory 20 22 Rate Blood Pressure 153/98 134/95 Blood Pressure 138/91 [Right] O2 Sat by Pulse 99 98 Oximetry - Labs CBC & Chem 7: 12/28/17 11:30 12/28/17 11:30 Labs: Abnormal lab results 12/27/17 12/27/17 12/27/17 Range/Units 13:02 16:22 22:20 WBC (4.5-11.0) K/mm3 RBC (3.65-5.03) M/mm3 Hgb (11.8-15.2) gm/dl Hct (35.5-45.6) % RDW (13.2-15.2) % Plt Count (140-440) K/mm3 POC Glucose 328 H 236 H 195 H (70-105) 12/28/17 12/28/17 12/28/17 Range/Units 07:18 11:27 11:30 WBC 4.4 L (4.5-11.0) K/mm3 RBC 2.88 L (3.65-5.03) M/mm3 Hgb 8.9 L (11.8-15.2) gm/dl Hct 27.0 L (35.5-45.6) % RDW 16.1 H (13.2-15.2) % Plt Count 112 L (140-440) K/mm3 POC Glucose 110 H 142 H (70-105)
[2017-12-28 12:16] LABS: Calcium 8.6 mg/dL (8.4-10.2)
--- NOTE | 2017-12-28 13:03 | Consultation ---
History of Present Illness Consult date: 12/28/17 Requesting physician: DAGOBERTO YARBROUGH Consult reason: pre op evaluation History of present illness: He has a history of lumbar radiculopathy. He tripped at home and fell sustaining left femoral neck fracture. He has no cardiac symptoms. Past History Past Medical History: hypertension, other (Gout) Past Surgical History: No surgical history Social history: (no children). denies: smoking, alcohol abuse Family history: denies: CAD Medications and Allergies Allergies Allergy/AdvReac Type Severity Reaction Status Date / Time shellfish derived Allergy Swelling Verified 12/26/17 11:44 Home Medications Medication Instructions Recorded Confirmed Last Taken Type Amlodipine Besylate [Norvasc] 5 mg PO DAILY 12/26/17 12/26/17 12/25/17 History Atenolol [Tenormin] 50 mg PO DAILY 12/26/17 12/26/17 12/25/17 History Colchicine [Mitigare] 0.6 mg PO DAILY 12/26/17 12/26/17 12/25/17 History Febuxostat [Uloric] 40 mg PO DAILY 12/26/17 12/26/17 12/25/17 History Furosemide [Lasix TAB] 40 mg PO QDAY 12/26/17 12/26/17 12/25/17 History Gabapentin [Neurontin] 300 mg PO Q8HR 12/26/17 12/26/17 12/25/17 History Iron 18 mg PO QDAY 12/26/17 12/26/17 12/25/17 History Magnesium 250 mg PO DAILY 12/26/17 12/26/17 12/25/17 History Milk Thistle 175 mg PO DAILY 12/26/17 12/26/17 12/25/17 History Multivit-Min/FA/Lycopen/Lutein 1 each PO DAILY 12/26/17 12/26/17 12/25/17 History [Men 50 Plus Multivitamin Tab] Omeprazole 20 mg PO DAILY 12/26/17 12/26/17 12/25/17 History Travoprost [Travatan Z] 2.5 ml OP DAILY 12/26/17 12/26/17 12/25/17 History traMADol [Ultram] 50 mg PO Q6HR PRN 12/26/17 12/26/17 Unknown History Active Meds: Active Medications Famotidine (Pepcid) 20 mg IV QAM COUNTS INCLUDE 234 BEDS AT THE [facility] Last Admin: 12/28/17 09:04 Dose: 20 mg Sodium Chloride (Nacl 0.9%) 100 mls @ 999 mls/hr IV KARLEE PRN PRN Reason: Hypotension Sodium Chloride (Nacl 0.9%) 100 mls @ 999 mls/hr IV KARLEE PRN PRN Reason: Hypotension Insulin Human Lispro (Humalog) 0 unit SUB-Q ACHS COUNTS INCLUDE 234 BEDS AT THE [facility]; Protocol Last Admin: 12/28/17 08:00 Dose: Not Given Morphine Sulfate (Morphine) 2 mg IV Q4H PRN PRN Reason: Pain, Moderate (4-6) Last Admin: 12/28/17 06:49 Dose: 2 mg Ondansetron HCl (Zofran) 4 mg IV Q8H PRN PRN Reason: Nausea And Vomiting Sodium Chloride (Sodium Chloride Flush Syringe 10 Ml) 10 ml IV BID COUNTS INCLUDE 234 BEDS AT THE [facility] Last Admin: 12/28/17 06:52 Dose: 10 ml Sodium Chloride (Sodium Chloride Flush Syringe 10 Ml) 10 ml IV PRN PRN PRN Reason: LINE FLUSH Review of Systems Constitutional: no fever, no chills Ears, nose, mouth and throat: no ear pain, no ear discharge, no sore throat Cardiovascular: no chest pain, no palpitations, no lightheadedness, no shortness of breath Respiratory: no cough, no hemoptysis, no shortness of breath Gastrointestinal: no abdominal pain, no nausea, no vomiting, no diarrhea, no constipation Genitourinary Male: no dysuria, no urinary frequency Rectal: no pain, no bleeding Musculoskeletal: other (left hip pain), no neck stiffness, no neck pain Integumentary: no rash, no pruritis Neurological: no weakness, no parathesias, no headaches Endocrine: no cold intolerance, no heat intolerance Hematologic/Lymphatic: no easy bruising, no easy bleeding Allergic/Immunologic: no urticaria, no wheezing Physical Examination Vital Signs Last Vital Signs Temp 98.8 F 12/28/17 07:09 Pulse 86 12/28/17 07:09 Resp 22 12/28/17 07:09 BP 134/95 12/28/17 07:09 Pulse Ox 98 12/28/17 07:09 General appearance: no acute distress HEENT: Positive: EOMI, Mucus Membranes Moist Neck: Positive: neck supple, trachea midline Cardiac: Positive: Reg Rate and Rhythm, S1/S2 Lungs: Positive: clear to auscultation Neuro: Positive: Grossly Intact Abdomen: Positive: Soft, Active Bowel Sounds. Negative: Tender Skin: Positive: Clear Musculoskeletal: Normal Range of Motion Extremities: Present: normal. Absent: edema Results 12/28/17 11:30 12/28/17 11:30 Cardiac Enzymes 12/28/17 Range/Units 11:30 AST 51 H (5-40) units/L CBC 12/28/17 Range/Units 11:30 WBC 4.4 L (4.5-11.0) K/mm3 RBC 2.88 L (3.65-5.03) M/mm3 Hgb 8.9 L (11.8-15.2) gm/dl Hct 27.0 L (35.5-45.6) % Plt Count 112 L (140-440) K/mm3 Comprehensive Metabolic Panel 12/28/17 Range/Units 11:30 Sodium 142 (137-145) mmol/L Potassium 4.3 (3.6-5.0) mmol/L Chloride 102.5 (98-107) mmol/L Carbon Dioxide 28 (22-30) mmol/L BUN 45 H (9-20) mg/dL Creatinine 3.2 H (0.8-1.5) mg/dL Glucose 133 H (75-100) mg/dL Calcium 8.6 (8.4-10.2) mg/dL AST 51 H (5-40) units/L ALT 28 (7-56) units/L Alkaline Phosphatase 150 H (35-129) units/L Total Protein 5.4 L (6.3-8.2) g/dL Albumin 3.0 L (3.9-5) g/dL - Imaging and Cardiology EKG: image reviewed EKG interpretations - Telemetry EKG Rhythm: Sinus Rhythm - EKG Sinus rhythms and dysrhythmias: sinus rhythm Supraventricular dysrhythmia: atrial premature complexe Assessment and Plan I will optimize his antihypertensive regimen. Obtain echocardiogram. If there are no significant or prohibitive abnormalities on his echocardiogram, he will be released to proceed with his surgery from a cardiac standpoint. His progressive thrombocytopenia is concerning. However, he apparently received Heparin at initial presentation. - Patient Problems (1) Femoral neck fracture Current Visit: Yes Status: Acute Qualifiers: Encounter type: initial encounter Fracture type: closed Laterality: left Qualified Code(s): S72.002A - Fracture of unspecified part of neck of left femur, initial encounter for closed fracture (2) Uncontrolled hypertension Current Visit: Yes Status: Acute (3) Acute kidney injury superimposed on CKD Current Visit: Yes Status: Acute (4) Pancytopenia Current Visit: Yes Status: Acute (5) Alcoholic cirrhosis of liver Current Visit: Yes Status: Chronic Qualifiers: Ascites presence: without ascites Qualified Code(s): K70.30 - Alcoholic cirrhosis of liver without ascites (6) Anemia Current Visit: Yes Status: Chronic
[2017-12-28] MEDS ORDERED: NORVASC PO SCH (16:00)
[2017-12-28] MEDS: TENORMIN PO SCH (21:37)
[2017-12-29] MEDS ORDERED: VERSED IV NR (06:00)
[2017-12-29] MEDS ORDERED: NEURONTIN PO NR (06:00)
[2017-12-29] MEDS ORDERED: LACTATED RINGERS 1,000 ML IV SCH (06:00)
[2017-12-29] MEDS: MORPHINE IV PRN ×2 (06:31→17:31)
[2017-12-29] MEDS: HumaLOG SUB-Q SCH ×3 (07:40→22:25)
[2017-12-29] MEDS ORDERED: NORVASC PO SCH (09:15)
[2017-12-29] MEDS: SODIUM CHLORIDE FLUSH SYRINGE 10 ML IV SCH ×3 (10:02→22:34)
[2017-12-29] MEDS: TENORMIN PO SCH ×2 (10:03→22:26)
--- NOTE | 2017-12-29 10:14 | Progress Note ---
Assessment and Plan - Patient Problems (1) Acute kidney injury superimposed on CKD Current Visit: Yes Status: Acute Plan to address problem: acute on CKD stage 4. clinically feeling better after dialysis. Awaiting left hip surgery. Monitor labs, consider PRBC if Hb drops. If K, volume status ok- will hold dialysis today. (2) Anemia Current Visit: Yes Status: Chronic (3) Hypertension Current Visit: Yes Status: Chronic Qualifiers: Hypertension type: essential hypertension Qualified Code(s): I10 - Essential (primary) hypertension (4) Femur fracture, left Current Visit: Yes Status: Acute Qualifiers: Encounter type: initial encounter Femur location: intertrochanteric Fracture type: closed Subjective Date of service: 12/29/17 Principal diagnosis: displaced right intratrochenteric fx, MONI requiring HD, liver cirrhosis Interval history: alert, oriented, denies CP or SOB Objective - Vital Signs Vital signs: Vital Signs - 12hr 12/29/17 12/29/17 12/29/17 00:20 04:19 06:31 Temperature 98.9 F 98.9 F Pulse Rate 83 87 Respiratory 20 20 18 Rate Blood Pressure 154/97 138/89 O2 Sat by Pulse 96 97 Oximetry - General Appearance General appearance: well-developed EENT: mucous membranes moist Neck: no JVD Respiratory: Present: Clear to Ascultation Cardiology: regular Gastrointestinal: normoactive bowel sounds Neurologic: alert and oriented x3 Musculoskeletal: other (no edema) - Lab 12/29/17 11:26 12/29/17 11:26 Most recent lab results Calcium 8.6 mg/dL (8.4-10.2) 12/28/17 11:30
--- NOTE | 2017-12-29 11:29 | Progress Note ---
Assessment and Plan Echo reviewed - EF 55-60%. Currently stable cardiac status. No current immediate cardiac contraindications to proceeding with contemplated orthopedic procedure at this time. The patient has been seen in conjunction with Dr. Mcmahon who agrees with the assessment and plan of care. - Patient Problems (1) Femoral neck fracture Current Visit: Yes Status: Acute Qualifiers: Encounter type: initial encounter Fracture type: closed Laterality: left Qualified Code(s): S72.002A - Fracture of unspecified part of neck of left femur, initial encounter for closed fracture (2) Uncontrolled hypertension Current Visit: Yes Status: Acute (3) Acute kidney injury superimposed on CKD Current Visit: Yes Status: Acute (4) Pancytopenia Current Visit: Yes Status: Acute (5) Alcoholic cirrhosis of liver Current Visit: Yes Status: Chronic Qualifiers: Ascites presence: without ascites Qualified Code(s): K70.30 - Alcoholic cirrhosis of liver without ascites (6) Anemia Current Visit: Yes Status: Chronic Subjective Date of service: 12/29/17 Principal diagnosis: displaced right intratrochenteric fx, MONI requiring HD, liver cirrhosis Interval history: pt resting comfortably in bed, no current cardiac complaints. Objective Last Vital Signs Temp 98.9 F 12/29/17 04:19 Pulse 87 12/29/17 04:19 Resp 18 12/29/17 06:31 BP 138/89 12/29/17 04:19 Pulse Ox 97 12/29/17 04:19 - Physical Examination General: No Apparent Distress HEENT: Positive: EOMI, Mucus Membranes Moist Neck: Positive: neck supple, trachea midline Cardiac: Positive: Reg Rate and Rhythm, S1/S2 Lungs: Positive: clear to auscultation Neuro: Positive: Grossly Intact Abdomen: Positive: Soft, Active Bowel Sounds. Negative: Tender Skin: Positive: Clear Musculoskeletal: Normal Range of Motion Extremities: Present: normal. Absent: edema - Labs and Meds Cardiac Enzymes 12/28/17 Range/Units 11:30 AST 51 H (5-40) units/L CBC 12/28/17 Range/Units 11:30 WBC 4.4 L (4.5-11.0) K/mm3 RBC 2.88 L (3.65-5.03) M/mm3 Hgb 8.9 L (11.8-15.2) gm/dl Hct 27.0 L (35.5-45.6) % Plt Count 112 L (140-440) K/mm3 Comprehensive Metabolic Panel 12/28/17 Range/Units 11:30 Sodium 142 (137-145) mmol/L Potassium 4.3 (3.6-5.0) mmol/L Chloride 102.5 (98-107) mmol/L Carbon Dioxide 28 (22-30) mmol/L BUN 45 H (9-20) mg/dL Creatinine 3.2 H (0.8-1.5) mg/dL Glucose 133 H (75-100) mg/dL Calcium 8.6 (8.4-10.2) mg/dL AST 51 H (5-40) units/L ALT 28 (7-56) units/L Alkaline Phosphatase 150 H (35-129) units/L Total Protein 5.4 L (6.3-8.2) g/dL Albumin 3.0 L (3.9-5) g/dL - Imaging and Cardiology EKG: image reviewed - Telemetry EKG Rhythm: Sinus Rhythm - EKG Sinus rhythms and dysrhythmias: sinus rhythm
[2017-12-29 12:12] LABS: Hematocrit 26.1 % (35.5-45.6); Hemoglobin 8.4 gm/dl (11.8-15.2); Mean Corpuscular HGB Conc 32 % (32-34); Mean Corpuscular Hemoglobin 30 pg (28-32); Mean Corpuscular Volume 94 fl (84-94); Platelet Count 115 K/mm3 (140-440); Red Blood Count 2.77 M/mm3 (3.65-5.03); Red Cell Distribution Width 15.7 % (13.2-15.2)
[2017-12-29 12:23] LABS: Calcium 8.7 mg/dL (8.4-10.2)
--- NOTE | 2017-12-29 12:27 | Anesthesia Consultation ---
Anesthesia Consult and Med Hx Date of service: 12/29/17 - Airway Anesthetic Teeth Evaluation: Good ROM Head & Neck: Adequate Mental/Hyoid Distance: Adequate Mallampati Class: Class II Intubation Access Assessment: Good - Pulmonary Exam CTA: Yes - Cardiac Exam Cardiac Exam: RRR - Pre-Operative Health Status ASA Pre-Surgery Classification: ASA3 Proposed Anesthetic Plan: Spinal - Cardiovascular System Hx Hypertension: Yes - Endocrine Hx Renal Disease: Yes Hx Cirrhosis: Yes Hx Non-Insulin Dependent Diabetes: Yes - Other Systems Hx Cancer: No
[2017-12-29] MEDS: NACL 0.9% 1000 ML 1,000 ML IV SCH ×2 (12:42→18:20)
[2017-12-29] MEDS: PEPCID IV SCH (12:44)
[2017-12-29] MEDS ORDERED: DIPRIVAN 10 MG/ML 1,000 MG/100 ML BOTTLE IV ONE (12:55)
[2017-12-29] MEDS ORDERED: NEO SYNEPHRINE/NS Syringe(OR USE) IV ONE (13:00)
[2017-12-29] MEDS ORDERED: ANCEF/STERILE WATER 2 GM/20 ML IV NR (13:00)
[2017-12-29] MEDS ORDERED: VERSED ONE (13:23)
[2017-12-29] MEDS ORDERED: AMBIEN PO PRN (17:36)
[2017-12-29] MEDS: NORVASC PO SCH (18:20)
[2017-12-29] MEDS: PERCOCET 5/325 PO PRN (18:23)
--- NOTE | 2017-12-29 20:30 | Progress Note ---
Assessment and Plan Assessment and plan: 62-year-old male presents to the ER after a fall. Patient has a history of unsteady gait for the last 2 years. Patient also has a history of alcoholic liver cirrhosis and chronic kidney disease. Patient fell on 12/20/17Mond when he was attempting to close the shades at home. He fell onto his left hip. Pain is 10 on a Scale of 1-10. Unable to Walk since Thursday Which Is 4 Days Ago. Exacerbated by any movement. Relieved by rest. -- Femur fracture, left L Intertrochanteric fracture, displaced Status post surgery /Left femur IM trochanteric nailing today -- Hyperglcycemia: A1c 5.6% Likely steroid induce. commence on low dose SSI --Hypertension; uncontrolled probably secondary to pain Losartan 100 mg once a day-when necessary hydralazine --Cirrhosis; Stable Ammonia level normal --Anemia Anemia sec to CKD,Iron levels ordered --Acute on Acute on CKD (chronic kidney disease) Nephrology following. HD as needed --DVT prophylaxis per orthopedics patient is postop Plan of care is reviewed with the patient his and the nurse History Interval history: Patient seen and examined medical records reviewed Patient underwent Left femur IM trochanteric nailing today Patient complains of pain Vital signs reviewed Hospitalist Physical - Constitutional Vitals: Temp Pulse Resp BP Pulse Ox 98.4 F 71 18 93/49 100 12/29/17 20:20 12/29/17 20:20 12/29/17 20:20 12/29/17 20:20 12/29/17 20:20 General appearance: Present: mild distress, well-nourished - EENT Eyes: Present: PERRL, EOM intact - Neck Neck: Present: supple, normal ROM - Respiratory Respiratory effort: normal Respiratory: bilateral: diminished, negative: rales, rhonchi, wheezing - Cardiovascular Rhythm: regular Heart Sounds: Present: S1 & S2 - Extremities Extremities: no ischemia, No edema - Abdominal General gastrointestinal: soft, non-tender, non-distended, normal bowel sounds - Integumentary Integumentary: Present: clear, warm - Psychiatric Psychiatric: appropriate mood/affect, cooperative - Neurologic Neurologic: CNII-XII intact, moves all extremities Results - Labs CBC & Chem 7: 12/29/17 11:26 12/29/17 11:26 Labs: Laboratory Last Values WBC 3.5 K/mm3 (4.5-11.0) L 12/29/17 11:26 RBC 2.77 M/mm3 (3.65-5.03) L 12/29/17 11:26 Hgb 8.4 gm/dl (11.8-15.2) L 12/29/17 11:26 Hct 26.1 % (35.5-45.6) L 12/29/17 11:26 MCV 94 fl (84-94) 12/29/17 11:26 MCH 30 pg (28-32) 12/29/17 11:26 MCHC 32 % (32-34) 12/29/17 11:26 RDW 15.7 % (13.2-15.2) H 12/29/17 11:26 Plt Count 115 K/mm3 (140-440) L 12/29/17 11:26 Jones % (Auto) Living Nurse 12/27/17 05:49 Add Manual Diff Complete 12/27/17 05:49 Total Counted 100 12/27/17 05:49 Seg Neuts % (Manual) 46.0 % (40.0-70.0) 12/27/17 05:49 Band Neutrophils % 21.0 % 12/27/17 05:49 Lymphocytes % (Manual) 17.0 % (13.4-35.0) 12/27/17 05:49 Reactive Lymphs % (Man) 0 % 12/27/17 05:49 Monocytes % (Manual) 16.0 % (0.0-7.3) H 12/27/17 05:49 Eosinophils % (Manual) 0 % (0.0-4.3) 12/27/17 05:49 Basophils % (Manual) 0 % (0.0-1.8) 12/27/17 05:49 Metamyelocytes % 0 % 12/27/17 05:49 Myelocytes % 0 % 12/27/17 05:49 Promyelocytes % 0 % 12/27/17 05:49 Blast Cells % 0 % 12/27/17 05:49 Nucleated RBC % Not Reportable 12/27/17 05:49 Seg Neutrophils # Man 1.3 K/mm3 (1.8-7.7) L 12/27/17 05:49 Band Neutrophils # 0.6 K/mm3 12/27/17 05:49 Lymphocytes # (Manual) 0.5 K/mm3 (1.2-5.4) L 12/27/17 05:49 Abs React Lymphs (Man) 0.0 K/mm3 12/27/17 05:49 Monocytes # (Manual) 0.5 K/mm3 (0.0-0.8) 12/27/17 05:49 Eosinophils # (Manual) 0.0 K/mm3 (0.0-0.4) 12/27/17 05:49 Basophils # (Manual) 0.0 K/mm3 (0.0-0.1) 12/27/17 05:49 Metamyelocytes # 0.0 K/mm3 12/27/17 05:49 Myelocytes # 0.0 K/mm3 12/27/17 05:49 Promyelocytes # 0.0 K/mm3 12/27/17 05:49 Blast Cells # 0.0 K/mm3 12/27/17 05:49 WBC Morphology Not Reportable 12/27/17 05:49 Hypersegmented Neuts Not Reportable 12/27/17 05:49 Hyposegmented Neuts Not Reportable 12/27/17 05:49 Hypogranular Neuts Not Reportable 12/27/17 05:49 Smudge Cells Not Reportable 12/27/17 05:49 Toxic Granulation Not Reportable 12/27/17 05:49 Toxic Vacuolation Not Reportable 12/27/17 05:49 Dohle Bodies Not Reportable 12/27/17 05:49 Pelger-Huet Anomaly Not Reportable 12/27/17 05:49 Caitlin Rods Not Reportable 12/27/17 05:49 Platelet Estimate Consistent w auto 12/27/17 05:49 Clumped Platelets Not Reportable 12/27/17 05:49 Plt Clumps, EDTA Not Reportable 12/27/17 05:49 Large Platelets Not Reportable 12/27/17 05:49 Giant Platelets Not Reportable 12/27/17 05:49 Platelet Satelliting Not Reportable 12/27/17 05:49 Plt Morphology Comment Not Reportable 12/27/17 05:49 RBC Morphology Not Reportable 12/27/17 05:49 Dimorphic RBCs Not Reportable 12/27/17 05:49 Polychromasia Not Reportable 12/27/17 05:49 Hypochromasia Few 07/01/18 05:49 Poikilocytosis Not Reportable 12/27/17 05:49 Anisocytosis 1+ 12/27/17 05:49 Microcytosis Not Reportable 12/27/17 05:49 Macrocytosis Not Reportable 12/27/17 05:49 Spherocytes Not Reportable 12/27/17 05:49 Pappenheimer Bodies Not Reportable 12/27/17 05:49 Sickle Cells Not Reportable 12/27/17 05:49 Target Cells Not Reportable 12/27/17 05:49 Tear Drop Cells Few 12/27/17 05:49 Ovalocytes Not Reportable 12/27/17 05:49 Helmet Cells Not Reportable 12/27/17 05:49 [place] Bodies Not Reportable 12/27/17 05:49 [place] Rings Not Reportable 12/27/17 05:49 [place] Cells Not Reportable 12/27/17 05:49 Bite Cells Not Reportable 12/27/17 05:49 Crenated Cell Not Reportable 12/27/17 05:49 Elliptocytes Not Reportable 12/27/17 05:49 Acanthocytes (Spur) Not Reportable 12/27/17 05:49 Rouleaux Not Reportable 12/27/17 05:49 Hemoglobin C Crystals Not Reportable 12/27/17 05:49 Schistocytes Not Reportable 12/27/17 05:49 Malaria parasites Not Reportable 12/27/17 05:49 Trent Bodies Not Reportable 12/27/17 05:49 Hem Pathologist Commnt No 12/27/17 05:49 PT 14.1 Sec. (12.2-14.9) 12/25/17 20:46 INR 1.04 (0.87-1.13) 12/25/17 20:46 APTT 31.8 Sec. (24.2-36.6) 12/25/17 20:46 Sodium 142 mmol/L (137-145) 12/29/17 11:26 Potassium 3.9 mmol/L (3.6-5.0) 12/29/17 11:26 Chloride 104.1 mmol/L (98-107) 12/29/17 11:26 Carbon Dioxide 28 mmol/L (22-30) 12/29/17 11:26 Anion Gap 14 mmol/L 12/29/17 11:26 BUN 51 mg/dL (9-20) H 12/29/17 11:26 Creatinine 3.6 mg/dL (0.8-1.5) H 12/29/17 11:26 Estimated GFR 21 ml/min 12/29/17 11:26 BUN/Creatinine Ratio 14 % 12/29/17 11:26 Glucose 96 mg/dL (75-100) 12/29/17 11:26 POC Glucose 91 (70-105) 12/29/17 12:23 Hemoglobin A1c 5.0 % (4-6) 12/26/17 13:07 Calcium 8.7 mg/dL (8.4-10.2) 12/29/17 11:26 Iron 13 ug/dL (49-181) L 12/26/17 13:07 TIBC 200 mcg/dL (250-450) L 12/26/17 13:07 % Saturation 6.50 % 12/26/17 13:07 Transferrin 182 mg/dl (180-329) 12/26/17 13:07 Total Bilirubin 0.40 mg/dL (0.1-1.2) 12/28/17 11:30 AST 51 units/L (5-40) H 12/28/17 11:30 ALT 28 units/L (7-56) 12/28/17 11:30 Alkaline Phosphatase 150 units/L (35-129) H 12/28/17 11:30 Ammonia 45.0 umol/L (25-60) 12/25/17 20:46 Total Protein 5.4 g/dL (6.3-8.2) L 12/28/17 11:30 Albumin 3.0 g/dL (3.9-5) L 12/28/17 11:30 Albumin/Globulin Ratio 1.3 % 12/28/17 11:30 Vitamin B12 1858 pg/mL (211-911) H 12/26/17 13:07 Hepatitis A IgM Ab Non-reactive (NonReactive) 12/26/17 16:06 Hep Bs Antigen Non-reactive (Negative) 12/26/17 16:06 Hep B Core IgM Ab Non-reactive (NonReactive) 12/26/17 16:06 Hepatitis C Antibody Non-reactive (NonReactive) 12/26/17 16:06 Blood Type A POSITIVE 12/29/17 08:40 Antibody Screen Negative 12/29/17 08:40
--- NOTE | 2017-12-29 20:32 | Procedure Note ---
Date of procedure: 12/29/17 Pre-op diagnosis: left intertrochanteric hip fracture Post-op diagnosis: same Procedure: Closed reduction insertion of intramedullary nail left femur Procedure The patient was brought to the OR on the hospital bed He was requested to lie in the lateral decubitus position at which point spinal anesthesia was induced following this the patient was then transferred onto the hand table supine the legs were placed in longitudinal traction Z C-arm fluoroscope was brought in and the hip was reduced in both the AP and lateral planes. Next the left hip was prepped and draped in the usual sterile manner a stab wound was made posterior and superior to the greater trochanter this is carried down sharply through skin and fascia using a Burgos elevator the soft tissues were split down to the tip of the greater trochanter A large awl was used to enter the proximal medullary canal this was followed by placement of the guidewire again under C- arm visualization the tip of the guidewire was seen in the distal femur next the measurements were obtained a 11 x 400 intramedullary nail was selected this was followed by reaming up to a 12-1/2 mm diameter following this the intramedullary nail was inserted and a antegrade fashion down the proximal canal into the distal femur next the targeting device for the helical blade was placed and the stab wound was made along the lateral border of the thigh again under C-arm visualization a guidewire was inserted into the femoral neck again measuring this delay a 100 mm helical blade was chosen the forearm or near cortex was drilled followed by insertion of the proximal helical blade next the locking screw proximally was engaged again under C-arm direction AP and lateral views were obtained showing good reduction at the fracture and placement of the hardware following this a wound was copiously irrigated and was closed in a standard routine fashion and the patient tolerated the procedure there were no complications and he was sent to postanesthesia recovery in stable condition Anesthesia: spinal Surgeon: HOLDEN DÍAZ Career Technical Supervisor: CESAR ANDERSON Estimated blood loss: 50-100ml Pathology: none Condition: stable Disposition: PACU
[2017-12-29] MEDS ORDERED: SODIUM CHLORIDE FLUSH SYRINGE 10 ML IV SCH (21:00)
[2017-12-29] MEDS: ANCEF/NS 1 GM/50 ML 1 GM/50 ML BAG IV SCH (22:33)
[2017-12-30] MEDS: PERCOCET 5/325 PO PRN (00:51)
[2017-12-30] MEDS: ANCEF/NS 1 GM/50 ML 1 GM/50 ML BAG IV SCH (06:12)
[2017-12-30 08:19] LABS: Hematocrit 22.9 % (35.5-45.6); Hemoglobin 7.5 gm/dl (11.8-15.2); Mean Corpuscular HGB Conc 33 % (32-34); Mean Corpuscular Hemoglobin 31 pg (28-32); Mean Corpuscular Volume 93 fl (84-94); Platelet Count 100 K/mm3 (140-440); Red Blood Count 2.46 M/mm3 (3.65-5.03); Red Cell Distribution Width 16.1 % (13.2-15.2)
[2017-12-30 08:27] LABS: Calcium 8.6 mg/dL (8.4-10.2)
[2017-12-30] MEDS: HumaLOG SUB-Q SCH ×5 (08:32→23:14)
[2017-12-30] MEDS: PEPCID IV SCH ×2 (08:33→10:58)
[2017-12-30] MEDS: NORVASC PO SCH ×2 (08:33→10:57)
[2017-12-30] MEDS: TENORMIN PO SCH ×3 (08:34→23:11)
[2017-12-30] MEDS: SODIUM CHLORIDE FLUSH SYRINGE 10 ML IV SCH ×3 (08:37→23:12)
--- NOTE | 2017-12-30 08:56 | Progress Note ---
Assessment and Plan cardiac status stable s/p ortho surgery continue current mgt Subjective Date of service: 12/30/17 Principal diagnosis: displaced right intratrochenteric fx, MONI requiring HD, liver cirrhosis Interval history: no new card complaints no cp or sob Objective Vital Signs Temp Pulse Resp BP BP Pulse Ox 12/30/17 08:34 89 124/72 12/30/17 08:33 89 124/72 12/30/17 06:47 99.9 F H 91 H 20 147/89 89 12/30/17 05:52 99 H 99 12/30/17 05:46 100.1 F H 91 H 17 145/85 91 12/30/17 00:57 99.6 F 12/30/17 00:50 92 H 96 12/30/17 00:49 96 H 20 145/92 95 12/29/17 22:44 100 12/29/17 22:26 93/49 12/29/17 20:20 98.4 F 71 18 93/49 100 12/29/17 20:08 102 H 86 12/29/17 20:07 99.3 F 102 H 20 147/84 87 12/29/17 16:15 98.1 F 71 12 137/99 99 12/29/17 15:45 71 12 141/102 100 12/29/17 15:30 69 22 147/107 100 12/29/17 15:20 71 22 126/87 100 12/29/17 15:15 70 22 154/89 100 12/29/17 15:10 99.8 F H 70 22 154/89 98 12/29/17 11:45 98.4 F 76 16 142/89 100 - Physical Examination General: No Apparent Distress HEENT: Positive: EOMI, Mucus Membranes Moist Neck: Positive: neck supple, trachea midline Cardiac: Positive: Reg Rate and Rhythm. Negative: Audible Murmur Lungs: Positive: clear to auscultation Neuro: Positive: Grossly Intact Abdomen: Positive: Soft, Active Bowel Sounds. Negative: Tender Skin: Positive: Clear Musculoskeletal: Normal Range of Motion Extremities: Present: normal. Absent: edema - Labs and Meds CBC 12/29/17 12/30/17 Range/Units 11:26 07:13 WBC 3.5 L 3.5 L (4.5-11.0) K/mm3 RBC 2.77 L 2.46 L (3.65-5.03) M/mm3 Hgb 8.4 L 7.5 L (11.8-15.2) gm/dl Hct 26.1 L 22.9 L (35.5-45.6) % Plt Count 115 L 100 L (140-440) K/mm3 Comprehensive Metabolic Panel 12/29/17 12/30/17 Range/Units 11:26 07:13 Sodium 142 145 (137-145) mmol/L Potassium 3.9 4.0 (3.6-5.0) mmol/L Chloride 104.1 106.3 (98-107) mmol/L Carbon Dioxide 28 22 (22-30) mmol/L BUN 51 H 50 H (9-20) mg/dL Creatinine 3.6 H 3.5 H (0.8-1.5) mg/dL Glucose 96 117 H (75-100) mg/dL Calcium 8.7 8.6 (8.4-10.2) mg/dL - Imaging and Cardiology EKG: image reviewed - EKG Sinus rhythms and dysrhythmias: sinus rhythm
--- NOTE | 2017-12-30 09:05 | Progress Note ---
Assessment and Plan - Patient Problems (1) Acute kidney injury superimposed on CKD Current Visit: Yes Status: Acute Plan to address problem: acute on CKD stage 4. Non oliguric. S/P left hip surgery on 12/29/17. consider PRBC . K, volume status ok- will hold dialysis today. May remove Anderson catheter. (2) Anemia Current Visit: Yes Status: Chronic (3) Hypertension Current Visit: Yes Status: Chronic Qualifiers: Hypertension type: essential hypertension Qualified Code(s): I10 - Essential (primary) hypertension (4) Femur fracture, left Current Visit: Yes Status: Acute Qualifiers: Encounter type: initial encounter Femur location: intertrochanteric Fracture type: closed Subjective Date of service: 12/30/17 Principal diagnosis: displaced right intratrochenteric fx, MONI requiring HD, liver cirrhosis Interval history: alert, oriented, denies CP or SOB. C/O pain in surgical site. S/P left hip surgery yesterday. Urinating well Objective - Vital Signs Vital signs: Vital Signs - 12hr 12/29/17 12/29/17 12/30/17 22:26 22:44 00:49 Temperature Pulse Rate 96 H Respiratory 20 Rate Blood Pressure 93/49 145/92 O2 Sat by Pulse 100 95 Oximetry 12/30/17 12/30/17 12/30/17 00:50 00:57 05:46 Temperature 99.6 F 100.1 F H Pulse Rate 92 H 91 H Respiratory 17 Rate Blood Pressure 145/85 O2 Sat by Pulse 96 91 Oximetry 12/30/17 12/30/17 12/30/17 05:52 06:47 08:33 Temperature 99.9 F H Pulse Rate 99 H 91 H 89 Respiratory 20 Rate Blood Pressure 147/89 124/72 O2 Sat by Pulse 99 89 Oximetry 12/30/17 08:34 Temperature Pulse Rate 89 Respiratory Rate Blood Pressure 124/72 O2 Sat by Pulse Oximetry - General Appearance General appearance: well-developed EENT: mucous membranes dry Neck: no JVD Respiratory: Present: Clear to Ascultation Cardiology: regular Gastrointestinal: normoactive bowel sounds Neurologic: alert and oriented x3 Musculoskeletal: other (no edema) Psychiatric: mood/affect appropriate, cooperative - Lab 12/30/17 07:13 12/30/17 07:13 Most recent lab results Calcium 8.6 mg/dL (8.4-10.2) 12/30/17 07:13
--- NOTE | 2017-12-30 09:36 | XRay Report ---
LEFT FEMUR, 2 VIEWS History: Left femur rodding, intraoperative films. Findings: 3 fluoroscopic images of the left hip and left femur are presented during surgery. The images demonstrate an a left femoral neck screw and left femur intramedullary kaya securing a left intertrochanteric femur fracture. Alignment is anatomic. No additional abnormality is detected. Impression: Open reduction and internal fixation of a left proximal femur fracture.
[2017-12-30] MEDS: MORPHINE IV PRN ×3 (09:52→23:13)
[2017-12-30 16:24] LABS: Anisocytosis 1+; Basophils % (Manual) 0 % (0.0-1.8); Platelet Estimate Consistent w Auto; Total Cells Counted 100
--- NOTE | 2017-12-30 19:35 | Progress Note ---
Assessment and Plan Assessment and plan: 62-year-old male presents to the ER after a fall. Patient has a history of unsteady , alcoholic liver cirrhosis and chronic kidney disease was admitted history of fall and sustained a left femur fracture --L Intertrochanteric femur fracture, displaced s/p Left femur IM trochanteric nailing Continue postop care, physical therapy occupational therapy Pain management, orthopedic following -- Hyperglcycemia: A1c 5.6% Likely steroid induce. Accu-Chek sliding scale coverage as needed --Hypertension; moderate control Continue current antihypertensives and when necessary medications --Cirrhosis; Stable, Ammonia level normal --Anemia, Anemia sec to CKD, closely monitor H&H and transfuse as needed --Acute on CKD (chronic kidney disease) Nephrology following. HD as needed --DVT prophylaxis; heparin renal dose if okay with orthopedics Plan of care is reviewed with the patient his and the nurse History Interval history: Patient seen and examined medical records reviewed Recent fevers but the complaints of severe pain at the surgical site Does not like hospital food requests home food. Alert awake oriented 3 Vital signs reviewed Hospitalist Physical - Constitutional Vitals: Temp Pulse Resp BP Pulse Ox 100.8 F H 94 H 20 154/94 94 12/30/17 15:57 12/30/17 12:01 12/30/17 15:57 12/30/17 15:57 12/30/17 12:01 General appearance: Present: no acute distress, well-nourished - EENT Eyes: Present: PERRL, EOM intact - Neck Neck: Present: supple, normal ROM - Respiratory Respiratory effort: normal Respiratory: bilateral: diminished, negative: rales, rhonchi, wheezing - Cardiovascular Rhythm: regular Heart Sounds: Present: S1 & S2 - Extremities Extremities: no ischemia, No edema - Abdominal General gastrointestinal: soft, non-tender, non-distended, normal bowel sounds - Integumentary Integumentary: Present: clear, warm - Psychiatric Psychiatric: appropriate mood/affect, cooperative - Neurologic Neurologic: moves all extremities Results - Labs CBC & Chem 7: 12/30/17 07:13 12/30/17 07:13 Labs: Laboratory Last Values WBC 3.5 K/mm3 (4.5-11.0) L 12/30/17 07:13 RBC 2.46 M/mm3 (3.65-5.03) L 12/30/17 07:13 Hgb 7.5 gm/dl (11.8-15.2) L 12/30/17 07:13 Hct 22.9 % (35.5-45.6) L 12/30/17 07:13 MCV 93 fl (84-94) 12/30/17 07:13 MCH 31 pg (28-32) 12/30/17 07:13 MCHC 33 % (32-34) 12/30/17 07:13 RDW 16.1 % (13.2-15.2) H 12/30/17 07:13 Plt Count 100 K/mm3 (140-440) L 12/30/17 07:13 Irwin % (Auto) Senior Systems Analyst 12/30/17 07:13 Add Manual Diff Complete 12/30/17 07:13 Total Counted 100 12/30/17 07:13 Seg Neuts % (Manual) 67.0 % (40.0-70.0) 12/30/17 07:13 Band Neutrophils % 0 % 12/30/17 07:13 Lymphocytes % (Manual) 25.0 % (13.4-35.0) 12/30/17 07:13 Reactive Lymphs % (Man) 0 % 12/30/17 07:13 Monocytes % (Manual) 7.0 % (0.0-7.3) 12/30/17 07:13 Eosinophils % (Manual) 1.0 % (0.0-4.3) 12/30/17 07:13 Basophils % (Manual) 0 % (0.0-1.8) 12/30/17 07:13 Metamyelocytes % 0 % 12/30/17 07:13 Myelocytes % 0 % 12/30/17 07:13 Promyelocytes % 0 % 12/30/17 07:13 Blast Cells % 0 % 12/30/17 07:13 Nucleated RBC % Not Reportable 12/30/17 07:13 Seg Neutrophils # Man 2.3 K/mm3 (1.8-7.7) 12/30/17 07:13 Band Neutrophils # 0.0 K/mm3 12/30/17 07:13 Lymphocytes # (Manual) 0.9 K/mm3 (1.2-5.4) L 12/30/17 07:13 Abs React Lymphs (Man) 0.0 K/mm3 12/30/17 07:13 Monocytes # (Manual) 0.2 K/mm3 (0.0-0.8) 12/30/17 07:13 Eosinophils # (Manual) 0.0 K/mm3 (0.0-0.4) 12/30/17 07:13 Basophils # (Manual) 0.0 K/mm3 (0.0-0.1) 12/30/17 07:13 Metamyelocytes # 0.0 K/mm3 12/30/17 07:13 Myelocytes # 0.0 K/mm3 12/30/17 07:13 Promyelocytes # 0.0 K/mm3 12/30/17 07:13 Blast Cells # 0.0 K/mm3 12/30/17 07:13 WBC Morphology Not Reportable 12/30/17 07:13 Hypersegmented Neuts Not Reportable 12/30/17 07:13 Hyposegmented Neuts Not Reportable 12/30/17 07:13 Hypogranular Neuts Not Reportable 12/30/17 07:13 Smudge Cells Not Reportable 12/30/17 07:13 Toxic Granulation Not Reportable 12/30/17 07:13 Toxic Vacuolation Not Reportable 12/30/17 07:13 Dohle Bodies Not Reportable 12/30/17 07:13 Pelger-[place]uet Anomaly Not Reportable 12/30/17 07:13 Caitlin Rods Not Reportable 12/30/17 07:13 Platelet Estimate Consistent w auto 12/30/17 07:13 Clumped Platelets Not Reportable 12/30/17 07:13 Plt Clumps, EDTA Not Reportable 12/30/17 07:13 Large Platelets Not Reportable 12/30/17 07:13 Giant Platelets Not Reportable 12/30/17 07:13 Platelet Satelliting Not Reportable 12/30/17 07:13 Plt Morphology Comment Not Reportable 12/30/17 07:13 RBC Morphology Not Reportable 12/30/17 07:13 Dimorphic RBCs Not Reportable 12/30/17 07:13 Polychromasia Not Reportable 12/30/17 07:13 Hypochromasia Not Reportable 12/30/17 07:13 Poikilocytosis Not Reportable 12/30/17 07:13 Anisocytosis 1+ 12/30/17 07:13 Microcytosis Not Reportable 12/30/17 07:13 Macrocytosis Not Reportable 12/30/17 07:13 Spherocytes Not Reportable 12/30/17 07:13 Pappenheimer Bodies Not Reportable 12/30/17 07:13 Sickle Cells Not Reportable 12/30/17 07:13 Target Cells Not Reportable 12/30/17 07:13 Tear Drop Cells Not Reportable 12/30/17 07:13 Ovalocytes Not Reportable 12/30/17 07:13 Helmet Cells Not Reportable 12/30/17 07:13 [place] Bodies Not Reportable 12/30/17 07:13 [place] Rings Not Reportable 12/30/17 07:13 Sil Cells Not Reportable 12/30/17 07:13 Bite Cells Not Reportable 12/30/17 07:13 Crenated Cell Not Reportable 12/30/17 07:13 Elliptocytes Not Reportable 12/30/17 07:13 Acanthocytes (Spur) Not Reportable 12/30/17 07:13 Rouleaux Not Reportable 12/30/17 07:13 Hemoglobin C Crystals Not Reportable 12/30/17 07:13 Schistocytes Not Reportable 12/30/17 07:13 Malaria parasites Not Reportable 12/30/17 07:13 [place] Bodies Not Reportable 12/30/17 07:13 Hem Pathologist Commnt No 12/30/17 07:13 PT 14.1 Sec. (12.2-14.9) 12/25/17 20:46 INR 1.04 (0.87-1.13) 12/25/17 20:46 APTT 31.8 Sec. (24.2-36.6) 12/25/17 20:46 Sodium 145 mmol/L (137-145) 12/30/17 07:13 Potassium 4.0 mmol/L (3.6-5.0) 12/30/17 07:13 Chloride 106.3 mmol/L (98-107) 12/30/17 07:13 Carbon Dioxide 22 mmol/L (22-30) 12/30/17 07:13 Anion Gap 21 mmol/L 12/30/17 07:13 BUN 50 mg/dL (9-20) H 12/30/17 07:13 Creatinine 3.5 mg/dL (0.8-1.5) H 12/30/17 07:13 Estimated GFR 22 ml/min 12/30/17 07:13 BUN/Creatinine Ratio 14 % 12/30/17 07:13 Glucose 117 mg/dL (75-100) H 12/30/17 07:13 POC Glucose 136 (70-105) H 12/30/17 16:06 Hemoglobin A1c 5.0 % (4-6) 12/26/17 13:07 Calcium 8.6 mg/dL (8.4-10.2) 12/30/17 07:13 Iron 13 ug/dL (49-181) L 12/26/17 13:07 TIBC 200 mcg/dL (250-450) L 12/26/17 13:07 % Saturation 6.50 % 12/26/17 13:07 Transferrin 182 mg/dl (180-329) 12/26/17 13:07 Total Bilirubin 0.40 mg/dL (0.1-1.2) 12/28/17 11:30 AST 51 units/L (5-40) H 12/28/17 11:30 ALT 28 units/L (7-56) 12/28/17 11:30 Alkaline Phosphatase 150 units/L (35-129) H 12/28/17 11:30 Ammonia 45.0 umol/L (25-60) 12/25/17 20:46 Total Protein 5.4 g/dL (6.3-8.2) L 12/28/17 11:30 Albumin 3.0 g/dL (3.9-5) L 12/28/17 11:30 Albumin/Globulin Ratio 1.3 % 12/28/17 11:30 Vitamin B12 1858 pg/mL (211-911) H 12/26/17 13:07 Hepatitis A IgM Ab Non-reactive (NonReactive) 12/26/17 16:06 Hep Bs Antigen Non-reactive (Negative) 12/26/17 16:06 Hep B Core IgM Ab Non-reactive (NonReactive) 12/26/17 16:06 Hepatitis C Antibody Non-reactive (NonReactive) 12/26/17 16:06 Blood Type A POSITIVE 12/29/17 08:40 Antibody Screen Negative 12/29/17 08:40
[2017-12-30] MEDS: HEPARIN SUB-Q SCH (23:10)
[2017-12-31 07:45] LABS: Hematocrit 21.7 % (35.5-45.6); Hemoglobin 7.1 gm/dl (11.8-15.2); Mean Corpuscular HGB Conc 33 % (32-34); Mean Corpuscular Hemoglobin 31 pg (28-32); Mean Corpuscular Volume 93 fl (84-94); Red Blood Count 2.34 M/mm3 (3.65-5.03); Red Cell Distribution Width 15.8 % (13.2-15.2)
[2017-12-31 07:47] LABS: Calcium 8.7 mg/dL (8.4-10.2)
[2017-12-31 07:50] LABS: Platelet Count 96 K/mm3 (140-440)
[2017-12-31] MEDS: HumaLOG SUB-Q SCH ×4 (08:00→21:56)
[2017-12-31] MEDS ORDERED: MILK OF MAGNESIA PO PRN (08:22)
--- NOTE | 2017-12-31 08:56 | Progress Note ---
Assessment and Plan - Patient Problems (1) Acute kidney injury superimposed on CKD Current Visit: Yes Status: Acute Plan to address problem: acute on CKD stage 4. Non oliguric. S/P left hip surgery on 12/29/17. Anemia - consider PRBC . K, volume status ok- will hold dialysis today. Nutrition support. Discussed with pt and . Also discussed with pt's decorative engraver- (2) Anemia Current Visit: Yes Status: Chronic (3) Hypertension Current Visit: Yes Status: Chronic Qualifiers: Hypertension type: essential hypertension Qualified Code(s): I10 - Essential (primary) hypertension (4) Femur fracture, left Current Visit: Yes Status: Acute Qualifiers: Encounter type: initial encounter Femur location: intertrochanteric Fracture type: closed Subjective Date of service: 12/31/17 Principal diagnosis: displaced right intratrochenteric fx, MONI requiring HD, liver cirrhosis Interval history: alert, oriented, denies CP or SOB. C/O pain in surgical site. S/P left hip surgery day before yesterday. Urinating well-Anderson d/shelby. at bed side Objective - Vital Signs Vital signs: Vital Signs - 12hr 12/30/17 12/30/17 12/31/17 23:11 23:29 00:03 Temperature 99.5 F Pulse Rate 93 H Blood Pressure 137/90 O2 Sat by Pulse 92 Oximetry - General Appearance General appearance: well-developed EENT: mucous membranes moist Neck: no JVD Respiratory: Present: Clear to Ascultation Cardiology: regular, systolic murmur Gastrointestinal: normoactive bowel sounds Musculoskeletal: other (dressing over left hip) Psychiatric: mood/affect appropriate, cooperative - Lab 12/31/17 06:42 12/31/17 06:42 Most recent lab results Calcium 8.7 mg/dL (8.4-10.2) 12/31/17 06:42
[2017-12-31 09:46] LABS: Total Cells Counted 100
[2017-12-31 09:52] LABS: Anisocytosis 1+; Platelet Estimate Cons
[2017-12-31] MEDS: SODIUM CHLORIDE FLUSH SYRINGE 10 ML IV SCH ×2 (10:00→21:59)
[2017-12-31] MEDS: MORPHINE IV PRN (10:43)
[2017-12-31] MEDS: NORVASC PO SCH (10:44)
[2017-12-31] MEDS: TENORMIN PO SCH ×2 (10:44→21:38)
[2017-12-31] MEDS: HEPARIN SUB-Q SCH ×2 (10:45→21:38)
[2017-12-31] MEDS: PEPCID PO SCH (10:45)
--- NOTE | 2017-12-31 10:54 | Progress Note ---
Assessment and Plan S/p hip surgery. Currently stable cardiac status. Nothing further to add from cardiac perspective at this time. Will follow on as needed basis. The patient has been seen in conjunction with Dr. Mcmahon who agrees with the assessment and plan of care. - Patient Problems (1) Femoral neck fracture Current Visit: Yes Status: Acute Qualifiers: Encounter type: initial encounter Fracture type: closed Laterality: left Qualified Code(s): S72.002A - Fracture of unspecified part of neck of left femur, initial encounter for closed fracture (2) Uncontrolled hypertension Current Visit: Yes Status: Acute (3) Acute kidney injury superimposed on CKD Current Visit: Yes Status: Acute (4) Pancytopenia Current Visit: Yes Status: Acute (5) Alcoholic cirrhosis of liver Current Visit: Yes Status: Chronic Qualifiers: Ascites presence: without ascites Qualified Code(s): K70.30 - Alcoholic cirrhosis of liver without ascites (6) Anemia Current Visit: Yes Status: Chronic Subjective Date of service: 12/31/17 Principal diagnosis: displaced right intratrochenteric fx, MONI requiring HD, liver cirrhosis Interval history: pt resting comfortably in bed, no current cardiac complaints. s/p hip surgery. Objective Last Vital Signs Temp 98.9 F 12/31/17 07:49 Pulse 88 12/31/17 07:49 Resp 18 12/31/17 07:49 BP 143/92 12/31/17 07:49 Pulse Ox 91 12/31/17 07:49 - Physical Examination General: No Apparent Distress HEENT: Positive: EOMI, Mucus Membranes Moist Neck: Positive: neck supple, trachea midline Cardiac: Positive: Reg Rate and Rhythm, S1/S2 Lungs: Positive: clear to auscultation Neuro: Positive: Grossly Intact Abdomen: Positive: Soft, Active Bowel Sounds. Negative: Tender Skin: Positive: Clear Musculoskeletal: Normal Range of Motion Extremities: Present: normal. Absent: edema - Labs and Meds CBC 12/31/17 Range/Units 06:42 WBC 5.3 (4.5-11.0) K/mm3 RBC 2.34 L (3.65-5.03) M/mm3 Hgb 7.1 L (11.8-15.2) gm/dl Hct 21.7 L (35.5-45.6) % Plt Count 96 L (140-440) K/mm3 Comprehensive Metabolic Panel 12/31/17 Range/Units 06:42 Sodium 147 H (137-145) mmol/L Potassium 4.0 (3.6-5.0) mmol/L Chloride 105.9 (98-107) mmol/L Carbon Dioxide 23 (22-30) mmol/L BUN 52 H (9-20) mg/dL Creatinine 3.7 H (0.8-1.5) mg/dL Glucose 138 H (75-100) mg/dL Calcium 8.7 (8.4-10.2) mg/dL - Imaging and Cardiology EKG: image reviewed - EKG Sinus rhythms and dysrhythmias: sinus rhythm
--- NOTE | 2017-12-31 12:37 | Progress Note ---
Assessment and Plan s/p IM nail left hip/femur doing well continue PT and observation Subjective Date of service: 12/31/17 Principal diagnosis: displaced right intratrochenteric fx, MONI requiring HD, liver cirrhosis Interval history: no c/o's noted, sitting up in chair, PT started.... Objective Vital signs: Vital Signs - 12hr 12/31/17 07:49 Temperature 98.9 F Pulse Rate 88 Respiratory 18 Rate Blood Pressure 143/92 O2 Sat by Pulse 91 Oximetry Narrative Exam: post op dressing intact, moderate swelling,distal n/v intact - Labs CBC & BMP: 12/31/17 06:42 12/31/17 06:42 Labs: Abnormal lab results 12/29/17 12/30/17 12/30/17 Range/Units 16:17 07:13 11:10 RBC (3.65-5.03) M/mm3 Hgb (11.8-15.2) gm/dl Hct (35.5-45.6) % RDW (13.2-15.2) % Plt Count (140-440) K/mm3 Monocytes % (Manual) (0.0-7.3) % Lymphocytes # (Manual) 0.9 L (1.2-5.4) K/mm3 Sodium (137-145) mmol/L BUN (9-20) mg/dL Creatinine (0.8-1.5) mg/dL Glucose (75-100) mg/dL POC Glucose 110 H 157 H (70-105) 12/30/17 12/30/17 12/31/17 Range/Units 16:06 23:13 06:42 RBC 2.34 L (3.65-5.03) M/mm3 Hgb 7.1 L (11.8-15.2) gm/dl Hct 21.7 L (35.5-45.6) % RDW 15.8 H (13.2-15.2) % Plt Count 96 L (140-440) K/mm3 Monocytes % (Manual) 13.0 H (0.0-7.3) % Lymphocytes # (Manual) 1.1 L (1.2-5.4) K/mm3 Sodium (137-145) mmol/L BUN (9-20) mg/dL Creatinine (0.8-1.5) mg/dL Glucose (75-100) mg/dL POC Glucose 136 H 158 H (70-105) 12/31/17 12/31/17 Range/Units 06:42 12:00 RBC (3.65-5.03) M/mm3 Hgb (11.8-15.2) gm/dl Hct (35.5-45.6) % RDW (13.2-15.2) % Plt Count (140-440) K/mm3 Monocytes % (Manual) (0.0-7.3) % Lymphocytes # (Manual) (1.2-5.4) K/mm3 Sodium 147 H (137-145) mmol/L BUN 52 H (9-20) mg/dL Creatinine 3.7 H (0.8-1.5) mg/dL Glucose 138 H (75-100) mg/dL POC Glucose 175 H (70-105)
--- NOTE | 2017-12-31 13:56 | XRay Report ---
LEFT FEMUR: HISTORY: Postop evaluation Left femoral neck screw and left femoral intramedullary kaya are in place. Alignment is anatomic. No new acute process. IMPRESSION: Stable appearance of the left femur surgical changes.
--- NOTE | 2017-12-31 20:00 | Progress Note ---
Assessment and Plan Assessment and plan: 62-year-old male presents to the ER after a fall. Patient has a history of unsteady , alcoholic liver cirrhosis and chronic kidney disease was admitted history of fall and sustained a left femur fracture --L Intertrochanteric femur fracture, displaced s/p Left femur IM trochanteric nailing Pain management, PT OT, rehabilitation, -- Hyperglcycemia: A1c 5.6% Likely steroid induce. Accu-Chek sliding scale coverage as needed --Hypertension; moderate control Continue current antihypertensives and when necessary medications --Cirrhosis; Stable, Ammonia level normal --Anemia, Anemia sec to CKD, closely monitor H&H and transfuse as needed --Acute on CKD (chronic kidney disease) Nephrology following. HD as needed --DVT prophylaxis; heparin renal dose if okay with orthopedics Plan of care is reviewed with the patient his and the nurse History Interval history: Patient seen and examined ,medical records reviewed Feels better no new complaints Tolerating physical therapy slowly Vital signs reviewed Hospitalist Physical - Constitutional Vitals: Temp Pulse Resp BP Pulse Ox 98.2 F 84 18 149/72 98 12/31/17 16:00 12/31/17 16:00 12/31/17 16:00 12/31/17 16:00 12/31/17 16:00 General appearance: Present: no acute distress, well-nourished - EENT Eyes: Present: PERRL, EOM intact - Neck Neck: Present: supple, normal ROM - Respiratory Respiratory effort: normal Respiratory: bilateral: diminished, negative: rales, rhonchi, wheezing - Cardiovascular Rhythm: regular Heart Sounds: Present: S1 & S2 - Extremities Extremities: no ischemia, No edema Peripheral Pulses: within normal limits - Abdominal General gastrointestinal: soft, non-tender, non-distended, normal bowel sounds - Integumentary Integumentary: Present: clear, warm - Psychiatric Psychiatric: appropriate mood/affect, cooperative - Neurologic Neurologic: CNII-XII intact, moves all extremities Results - Labs CBC & Chem 7: 12/31/17 06:42 12/31/17 06:42 Labs: Laboratory Last Values WBC 5.3 K/mm3 (4.5-11.0) 12/31/17 06:42 RBC 2.34 M/mm3 (3.65-5.03) L 12/31/17 06:42 Hgb 7.1 gm/dl (11.8-15.2) L 12/31/17 06:42 Hct 21.7 % (35.5-45.6) L 12/31/17 06:42 MCV 93 fl (84-94) 12/31/17 06:42 MCH 31 pg (28-32) 12/31/17 06:42 MCHC 33 % (32-34) 12/31/17 06:42 RDW 15.8 % (13.2-15.2) H 12/31/17 06:42 Plt Count 96 K/mm3 (140-440) L 12/31/17 06:42 [place] % (Auto) Human Resources Operations Coordinator 12/31/17 06:42 Add Manual Diff Complete 12/31/17 06:42 Total Counted 100 12/31/17 06:42 Seg Neuts % (Manual) 64.0 % (40.0-70.0) 12/31/17 06:42 Band Neutrophils % 0 % 12/31/17 06:42 Lymphocytes % (Manual) 21.0 % (13.4-35.0) 12/31/17 06:42 Reactive Lymphs % (Man) 0 % 12/31/17 06:42 Monocytes % (Manual) 13.0 % (0.0-7.3) H 12/31/17 06:42 Eosinophils % (Manual) 1.0 % (0.0-4.3) 12/31/17 06:42 Basophils % (Manual) 1.0 % (0.0-1.8) 12/31/17 06:42 Metamyelocytes % 0 % 12/31/17 06:42 Myelocytes % 0 % 12/31/17 06:42 Promyelocytes % 0 % 12/31/17 06:42 Blast Cells % 0 % 12/31/17 06:42 Nucleated RBC % Not Reportable 12/31/17 06:42 Seg Neutrophils # Man 3.4 K/mm3 (1.8-7.7) 12/31/17 06:42 Band Neutrophils # 0.0 K/mm3 12/31/17 06:42 Lymphocytes # (Manual) 1.1 K/mm3 (1.2-5.4) L 12/31/17 06:42 Abs React Lymphs (Man) 0.0 K/mm3 12/31/17 06:42 Monocytes # (Manual) 0.7 K/mm3 (0.0-0.8) 12/31/17 06:42 Eosinophils # (Manual) 0.1 K/mm3 (0.0-0.4) 12/31/17 06:42 Basophils # (Manual) 0.1 K/mm3 (0.0-0.1) 12/31/17 06:42 Metamyelocytes # 0.0 K/mm3 12/31/17 06:42 Myelocytes # 0.0 K/mm3 12/31/17 06:42 Promyelocytes # 0.0 K/mm3 12/31/17 06:42 Blast Cells # 0.0 K/mm3 12/31/17 06:42 WBC Morphology Not Reportable 12/31/17 06:42 Hypersegmented Neuts Not Reportable 12/31/17 06:42 Hyposegmented Neuts Not Reportable 12/31/17 06:42 Hypogranular Neuts Not Reportable 12/31/17 06:42 Smudge Cells Not Reportable 12/31/17 06:42 Toxic Granulation Not Reportable 12/31/17 06:42 Toxic Vacuolation Not Reportable 12/31/17 06:42 Dohle Bodies Not Reportable 12/31/17 06:42 Pelger-Huet Anomaly Not Reportable 12/31/17 06:42 Caitlin Rods Not Reportable 12/31/17 06:42 Platelet Estimate Cons 12/31/17 06:42 Clumped Platelets Not Reportable 12/31/17 06:42 Plt Clumps, EDTA Not Reportable 12/31/17 06:42 Large Platelets Not Reportable 12/31/17 06:42 Giant Platelets Not Reportable 12/31/17 06:42 Platelet Satelliting Not Reportable 12/31/17 06:42 Plt Morphology Comment Not Reportable 12/31/17 06:42 RBC Morphology Not Reportable 12/31/17 06:42 Dimorphic RBCs Not Reportable 12/31/17 06:42 Polychromasia Not Reportable 12/31/17 06:42 Hypochromasia Not Reportable 12/31/17 06:42 Poikilocytosis Not Reportable 12/31/17 06:42 Anisocytosis 1+ 12/31/17 06:42 Microcytosis Not Reportable 12/31/17 06:42 Macrocytosis Not Reportable 12/31/17 06:42 Spherocytes Not Reportable 12/31/17 06:42 Pappenheimer Bodies Not Reportable 12/31/17 06:42 Sickle Cells Not Reportable 12/31/17 06:42 Target Cells Not Reportable 12/31/17 06:42 Tear Drop Cells Not Reportable 12/31/17 06:42 Ovalocytes Not Reportable 12/31/17 06:42 Helmet Cells Not Reportable 12/31/17 06:42 [place] Bodies Not Reportable 12/31/17 06:42 [place] Rings Not Reportable 12/31/17 06:42 Sil Cells Not Reportable 12/31/17 06:42 Bite Cells Not Reportable 12/31/17 06:42 Crenated Cell Not Reportable 12/31/17 06:42 Elliptocytes Not Reportable 12/31/17 06:42 Acanthocytes (Spur) Not Reportable 12/31/17 06:42 Rouleaux Not Reportable 12/31/17 06:42 Hemoglobin C Crystals Not Reportable 12/31/17 06:42 Schistocytes Not Reportable 12/31/17 06:42 Malaria parasites Not Reportable 12/31/17 06:42 Trent Bodies Not Reportable 12/31/17 06:42 Hem Pathologist Commnt No 12/31/17 06:42 PT 14.1 Sec. (12.2-14.9) 12/25/17 20:46 INR 1.04 (0.87-1.13) 12/25/17 20:46 APTT 31.8 Sec. (24.2-36.6) 12/25/17 20:46 Sodium 147 mmol/L (137-145) H 12/31/17 06:42 Potassium 4.0 mmol/L (3.6-5.0) 12/31/17 06:42 Chloride 105.9 mmol/L (98-107) 12/31/17 06:42 Carbon Dioxide 23 mmol/L (22-30) 12/31/17 06:42 Anion Gap 22 mmol/L 12/31/17 06:42 BUN 52 mg/dL (9-20) H 12/31/17 06:42 Creatinine 3.7 mg/dL (0.8-1.5) H 12/31/17 06:42 Estimated GFR 20 ml/min 12/31/17 06:42 BUN/Creatinine Ratio 14 % 12/31/17 06:42 Glucose 138 mg/dL (75-100) H 12/31/17 06:42 POC Glucose 152 (70-105) H 12/31/17 18:02 Hemoglobin A1c 5.0 % (4-6) 12/26/17 13:07 Calcium 8.7 mg/dL (8.4-10.2) 12/31/17 06:42 Iron 13 ug/dL (49-181) L 12/26/17 13:07 TIBC 200 mcg/dL (250-450) L 12/26/17 13:07 % Saturation 6.50 % 12/26/17 13:07 Transferrin 182 mg/dl (180-329) 12/26/17 13:07 Total Bilirubin 0.40 mg/dL (0.1-1.2) 12/28/17 11:30 AST 51 units/L (5-40) H 12/28/17 11:30 ALT 28 units/L (7-56) 12/28/17 11:30 Alkaline Phosphatase 150 units/L (35-129) H 12/28/17 11:30 Ammonia 45.0 umol/L (25-60) 12/25/17 20:46 Total Protein 5.4 g/dL (6.3-8.2) L 12/28/17 11:30 Albumin 3.0 g/dL (3.9-5) L 12/28/17 11:30 Albumin/Globulin Ratio 1.3 % 12/28/17 11:30 Vitamin B12 1858 pg/mL (211-911) H 12/26/17 13:07 Hepatitis A IgM Ab Non-reactive (NonReactive) 12/26/17 16:06 Hep Bs Antigen Non-reactive (Negative) 12/26/17 16:06 Hep B Core IgM Ab Non-reactive (NonReactive) 12/26/17 16:06 Hepatitis C Antibody Non-reactive (NonReactive) 12/26/17 16:06 Blood Type A POSITIVE 12/29/17 08:40 Antibody Screen Negative 12/29/17 08:40
[2018-01-01 06:23] LABS: Hematocrit 20.9 % (35.5-45.6); Hemoglobin 6.9 gm/dl (11.8-15.2); Mean Corpuscular HGB Conc 33 % (32-34); Mean Corpuscular Hemoglobin 31 pg (28-32); Mean Corpuscular Volume 93 fl (84-94); Platelet Count 113 K/mm3 (140-440); Red Blood Count 2.26 M/mm3 (3.65-5.03); Red Cell Distribution Width 15.9 % (13.2-15.2)
[2018-01-01 06:43] LABS: Calcium 8.4 mg/dL (8.4-10.2)
[2018-01-01 07:23] LABS: Band Neutrophils # (Manual) 0.2 K/mm3; Basophils % (Manual) 0 % (0.0-1.8); Total Cells Counted 100
[2018-01-01 07:24] LABS: Anisocytosis 1+; Ovalocytes Rare; Schistocytes Rare
[2018-01-01 07:25] LABS: Platelet Estimate Consistent w Auto
[2018-01-01] MEDS: PERCOCET 5/325 PO PRN ×2 (08:42→22:35)
[2018-01-01] MEDS: TENORMIN PO SCH ×2 (11:17→21:30)
[2018-01-01] MEDS: NORVASC PO SCH (11:17)
[2018-01-01] MEDS: PEPCID PO SCH (11:18)
[2018-01-01] MEDS: HEPARIN SUB-Q SCH ×2 (11:18→21:29)
--- NOTE | 2018-01-01 14:35 | Progress Note ---
Assessment and Plan impression * Acute on chronic renal failure. Stage IV * Left hip fracture * Hypertension * anemia recommendations * His serum creatinine is trending down and he is also nonoliguric * No urgent indication for dialysis today. Continue to monitor his renal function closely * Need strict intake and output. Discussed with patien * Avoid nephrotoxins * Monitor fluid status and electrolytes closely * packed RBC transfusion as needed Subjective Date of service: 01/01/18 Principal diagnosis: displaced right intratrochenteric fx, MONI requiring HD, liver cirrhosis Interval history: patient is comfortable. Denies any shortness of breath. No nausea or vomiting Objective - Vital Signs Vital signs: Vital Signs - 12hr 01/01/18 01/01/18 01/01/18 04:03 07:38 11:51 Temperature 99.6 F 98.6 F 97.9 F Pulse Rate 81 81 74 Respiratory 20 16 18 Rate Blood Pressure 137/82 142/89 133/79 O2 Sat by Pulse 95 97 94 Oximetry - General Appearance General appearance: well-developed, well-nourished, appears stated age EENT: PERRL, mucous membranes moist Neck: no JVD, no thyromegaly, no carotid bruit, supple, other (right IJ Vas- Cath in place) Respiratory: Present: Clear to Ascultation Cardiology: regular, normal heart rate, S1S2, no murmurs Gastrointestinal: normal, normoactive bowel sounds Integumentary: no rash, other (dressing noted over left hip) - Lab 01/01/18 06:08 01/01/18 06:08 Most recent lab results Calcium 8.4 mg/dL (8.4-10.2) 01/01/18 06:08
--- NOTE | 2018-01-01 18:23 | Progress Note ---
Assessment and Plan Assessment and plan: 62-year-old male presents to the ER after a fall. Patient has a history of unsteady , alcoholic liver cirrhosis and chronic kidney disease was admitted history of fall and sustained a left femur fracture --Anemia; hemoglobin today 6.9, no evidence of external bleeding Closely monitor H&H, transfuse PRBC during dialysis if needed --L Intertrochanteric femur fracture, displaced s/p Left femur IM trochanteric nailing Pain management, PT OT, rehabilitation, -- Hyperglcycemia: A1c 5.6% Likely steroid induce. Accu-Chek sliding scale coverage as needed --Hypertension; moderate control Continue current antihypertensives and when necessary medications --Cirrhosis; Stable, Ammonia level normal --Anemia, Anemia sec to CKD, closely monitor H&H and transfuse as needed --Acute on CKD (chronic kidney disease) Nephrology following. HD as needed --DVT prophylaxis; heparin renal dose if okay with orthopedics Plan of care is reviewed with the patient his and the nurse History Interval history: Recent seen and examined medical records reviewed Patient feels slightly better no new complaints Mild drop in H&H, repeat H&H and if it remains low Transfuse 1-2 units of PRBC during hemodialysis No new events reported to nursing Tolerating physical therapy Vital signs noted Hospitalist Physical - Constitutional Vitals: Temp Pulse Resp BP Pulse Ox 97.9 F 77 16 127/78 94 01/01/18 15:51 01/01/18 15:51 01/01/18 15:51 01/01/18 15:51 01/01/18 15:51 General appearance: Present: no acute distress, well-nourished - EENT Eyes: Present: PERRL, EOM intact - Neck Neck: Present: supple, normal ROM - Respiratory Respiratory effort: normal Respiratory: bilateral: diminished, negative: rales, rhonchi, wheezing - Cardiovascular Rhythm: regular Heart Sounds: Present: S1 & S2 - Extremities Extremities: no ischemia, No edema - Abdominal General gastrointestinal: soft, non-tender, non-distended, normal bowel sounds - Integumentary Integumentary: Present: clear, warm - Psychiatric Psychiatric: appropriate mood/affect, cooperative - Neurologic Neurologic: CNII-XII intact, moves all extremities Results - Labs CBC & Chem 7: 01/01/18 06:08 01/01/18 06:08 Labs: Laboratory Last Values WBC 5.4 K/mm3 (4.5-11.0) 01/01/18 06:08 RBC 2.26 M/mm3 (3.65-5.03) L 01/01/18 06:08 Hgb 6.9 gm/dl (11.8-15.2) L 01/01/18 06:08 Hct 20.9 % (35.5-45.6) L 01/01/18 06:08 MCV 93 fl (84-94) 01/01/18 06:08 MCH 31 pg (28-32) 01/01/18 06:08 MCHC 33 % (32-34) 01/01/18 06:08 RDW 15.9 % (13.2-15.2) H 01/01/18 06:08 Plt Count 113 K/mm3 (140-440) L 01/01/18 06:08 [place] % (Auto) Cleaners 01/01/18 06:08 Add Manual Diff Complete 01/01/18 06:08 Total Counted 100 01/01/18 06:08 Seg Neuts % (Manual) 74.0 % (40.0-70.0) H 01/01/18 06:08 Band Neutrophils % 3.0 % 01/01/18 06:08 Lymphocytes % (Manual) 10.0 % (13.4-35.0) L 01/01/18 06:08 Reactive Lymphs % (Man) 0 % 01/01/18 06:08 Monocytes % (Manual) 11.0 % (0.0-7.3) H 01/01/18 06:08 Eosinophils % (Manual) 2.0 % (0.0-4.3) 01/01/18 06:08 Basophils % (Manual) 0 % (0.0-1.8) 01/01/18 06:08 Metamyelocytes % 0 % 01/01/18 06:08 Myelocytes % 0 % 01/01/18 06:08 Promyelocytes % 0 % 01/01/18 06:08 Blast Cells % 0 % 01/01/18 06:08 Nucleated RBC % Not Reportable 01/01/18 06:08 Seg Neutrophils # Man 4.0 K/mm3 (1.8-7.7) 01/01/18 06:08 Band Neutrophils # 0.2 K/mm3 01/01/18 06:08 Lymphocytes # (Manual) 0.5 K/mm3 (1.2-5.4) L 01/01/18 06:08 Abs React Lymphs (Man) 0.0 K/mm3 01/01/18 06:08 Monocytes # (Manual) 0.6 K/mm3 (0.0-0.8) 01/01/18 06:08 Eosinophils # (Manual) 0.1 K/mm3 (0.0-0.4) 01/01/18 06:08 Basophils # (Manual) 0.0 K/mm3 (0.0-0.1) 01/01/18 06:08 Metamyelocytes # 0.0 K/mm3 01/01/18 06:08 Myelocytes # 0.0 K/mm3 01/01/18 06:08 Promyelocytes # 0.0 K/mm3 01/01/18 06:08 Blast Cells # 0.0 K/mm3 01/01/18 06:08 WBC Morphology Not Reportable 01/01/18 06:08 Hypersegmented Neuts Not Reportable 01/01/18 06:08 Hyposegmented Neuts Not Reportable 01/01/18 06:08 Hypogranular Neuts Not Reportable 01/01/18 06:08 Smudge Cells Not Reportable 01/01/18 06:08 Toxic Granulation Not Reportable 01/01/18 06:08 Toxic Vacuolation Not Reportable 01/01/18 06:08 Dohle Bodies Not Reportable 01/01/18 06:08 Pelger-Huet Anomaly Not Reportable 01/01/18 06:08 Caitlin Rods Not Reportable 01/01/18 06:08 Platelet Estimate Consistent w auto 01/01/18 06:08 Clumped Platelets Not Reportable 01/01/18 06:08 Plt Clumps, EDTA Not Reportable 01/01/18 06:08 Large Platelets Not Reportable 01/01/18 06:08 Giant Platelets Not Reportable 01/01/18 06:08 Platelet Satelliting Not Reportable 01/01/18 06:08 Plt Morphology Comment Not Reportable 01/01/18 06:08 RBC Morphology Not Reportable 01/01/18 06:08 Dimorphic RBCs Not Reportable 01/01/18 06:08 Polychromasia Not Reportable 01/01/18 06:08 Hypochromasia Not Reportable 01/01/18 06:08 Poikilocytosis Not Reportable 01/01/18 06:08 Anisocytosis 1+ 01/01/18 06:08 Microcytosis Not Reportable 01/01/18 06:08 Macrocytosis Not Reportable 01/01/18 06:08 Spherocytes Not Reportable 01/01/18 06:08 Pappenheimer Bodies Not Reportable 01/01/18 06:08 Sickle Cells Not Reportable 01/01/18 06:08 Target Cells Not Reportable 01/01/18 06:08 Tear Drop Cells Not Reportable 01/01/18 06:08 Ovalocytes Rare 01/01/18 06:08 Helmet Cells Not Reportable 01/01/18 06:08 [place] Bodies Not Reportable 01/01/18 06:08 [place] Rings Not Reportable 01/01/18 06:08 [place] Cells Not Reportable 01/01/18 06:08 Bite Cells Not Reportable 01/01/18 06:08 Crenated Cell Not Reportable 01/01/18 06:08 Elliptocytes Not Reportable 01/01/18 06:08 Acanthocytes (Spur) Not Reportable 01/01/18 06:08 Rouleaux Not Reportable 01/01/18 06:08 Hemoglobin C Crystals Not Reportable 01/01/18 06:08 Schistocytes Rare 01/01/18 06:08 Malaria parasites Not Reportable 01/01/18 06:08 Trent Bodies Not Reportable 01/01/18 06:08 Hem Pathologist Commnt No 01/01/18 06:08 PT 14.1 Sec. (12.2-14.9) 12/25/17 20:46 INR 1.04 (0.87-1.13) 12/25/17 20:46 APTT 31.8 Sec. (24.2-36.6) 12/25/17 20:46 Sodium 148 mmol/L (137-145) H 01/01/18 06:08 Potassium 3.9 mmol/L (3.6-5.0) 01/01/18 06:08 Chloride 108.7 mmol/L (98-107) H 01/01/18 06:08 Carbon Dioxide 24 mmol/L (22-30) 01/01/18 06:08 Anion Gap 19 mmol/L 01/01/18 06:08 BUN 52 mg/dL (9-20) H 01/01/18 06:08 Creatinine 3.3 mg/dL (0.8-1.5) H 01/01/18 06:08 Estimated GFR 23 ml/min 01/01/18 06:08 BUN/Creatinine Ratio 16 % 01/01/18 06:08 Glucose 122 mg/dL (75-100) H 01/01/18 06:08 POC Glucose 198 (70-105) H 01/01/18 15:59 Hemoglobin A1c 5.0 % (4-6) 12/26/17 13:07 Calcium 8.4 mg/dL (8.4-10.2) 01/01/18 06:08 Iron 13 ug/dL (49-181) L 12/26/17 13:07 TIBC 200 mcg/dL (250-450) L 12/26/17 13:07 % Saturation 6.50 % 12/26/17 13:07 Transferrin 182 mg/dl (180-329) 12/26/17 13:07 Total Bilirubin 0.40 mg/dL (0.1-1.2) 12/28/17 11:30 AST 51 units/L (5-40) H 12/28/17 11:30 ALT 28 units/L (7-56) 12/28/17 11:30 Alkaline Phosphatase 150 units/L (35-129) H 12/28/17 11:30 Ammonia 45.0 umol/L (25-60) 12/25/17 20:46 Total Protein 5.4 g/dL (6.3-8.2) L 12/28/17 11:30 Albumin 3.0 g/dL (3.9-5) L 12/28/17 11:30 Albumin/Globulin Ratio 1.3 % 12/28/17 11:30 Vitamin B12 1858 pg/mL (211-911) H 12/26/17 13:07 RBC Folic Acid >1000 ng/mL (>280) 12/26/17 13:07 Hepatitis A IgM Ab Non-reactive (NonReactive) 12/26/17 16:06 Hep Bs Antigen Non-reactive (Negative) 12/26/17 16:06 Hep B Core IgM Ab Non-reactive (NonReactive) 12/26/17 16:06 Hepatitis C Antibody Non-reactive (NonReactive) 12/26/17 16:06 Blood Type A POSITIVE 12/29/17 08:40 Antibody Screen Negative 12/29/17 08:40
[2018-01-01] MEDS: HumaLOG SUB-Q SCH ×2 (21:29)
[2018-01-01] MEDS: SODIUM CHLORIDE FLUSH SYRINGE 10 ML IV SCH ×2 (21:31)
[2018-01-01] MEDS ORDERED: BENADRYL PO PRN (22:43)
[2018-01-02] MEDS: HumaLOG SUB-Q SCH ×3 (08:45→16:40)
[2018-01-02] MEDS: TENORMIN PO SCH ×3 (08:56→21:22)
[2018-01-02] MEDS: PEPCID PO SCH ×2 (08:56→10:00)
[2018-01-02] MEDS: NORVASC PO SCH ×2 (08:56→10:00)
[2018-01-02] MEDS: HEPARIN SUB-Q SCH ×3 (08:57→21:23)
[2018-01-02] MEDS: SODIUM CHLORIDE FLUSH SYRINGE 10 ML IV SCH ×2 (10:00→21:24)
[2018-01-02 10:41] LABS: Hematocrit 20.6 % (35.5-45.6); Hemoglobin 6.6 gm/dl (11.8-15.2); Mean Corpuscular HGB Conc 32 % (32-34); Mean Corpuscular Hemoglobin 30 pg (28-32); Mean Corpuscular Volume 93 fl (84-94); Platelet Count 130 K/mm3 (140-440); Red Blood Count 2.22 M/mm3 (3.65-5.03); Red Cell Distribution Width 16.1 % (13.2-15.2)
[2018-01-02 11:04] LABS: Calcium 8.7 mg/dL (8.4-10.2)
--- NOTE | 2018-01-02 11:49 | Progress Note ---
Assessment and Plan impression * Acute on chronic renal failure. Stage IV * Left hip fracture * Hypertension * anemia recommendations * His serum creatinine is slightly higher today . * Serum sodium high . Hydrate patient gently * No urgent indication for dialysis today. Continue to monitor his renal function closely * Need strict intake and output. Discussed with patien * Avoid nephrotoxins * Monitor fluid status and electrolytes closely * packed RBC transfusion as needed Subjective Date of service: 01/02/18 Principal diagnosis: displaced right intratrochenteric fx, MONI requiring HD, liver cirrhosis Interval history: patient is comfortable. Denies any shortness of breath. No nausea or vomiting Objective - Vital Signs Vital signs: Vital Signs - 12hr 01/02/18 01/02/18 07:15 08:56 Temperature 98.3 F Pulse Rate 79 79 Respiratory 20 Rate Blood Pressure 132/84 Blood Pressure 132/84 [Right] O2 Sat by Pulse 95 Oximetry - General Appearance General appearance: well-developed, well-nourished, appears stated age EENT: PERRL, mucous membranes moist Neck: no JVD, no thyromegaly, no carotid bruit, supple, other (right IJ vascath in place ) Respiratory: Present: Clear to Ascultation Cardiology: regular, normal heart rate Gastrointestinal: normal, normoactive bowel sounds Integumentary: no rash, other (dressing left hip area ) - Lab 01/02/18 10:13 01/02/18 10:13 Most recent lab results Calcium 8.7 mg/dL (8.4-10.2) 01/02/18 10:13
[2018-01-02 11:59] LABS: Anisocytosis 1+; Basophils % (Manual) 0 % (0.0-1.8); Platelet Estimate Consistent w Auto; Total Cells Counted 100
[2018-01-02] MEDS ORDERED: NACL 0.45% 1000 ML 1,000 ML IV SCH (12:00)
[2018-01-02] MEDS ORDERED: NACL 0.9% 500 ML 500 ML IV ONE (13:14)
--- NOTE | 2018-01-02 13:17 | Progress Note ---
Assessment and Plan Assessment and plan: 62-year-old male presents to the ER after a fall. Patient has a history of unsteady , alcoholic liver cirrhosis and chronic kidney disease was admitted history of fall and sustained a left femur fracture --Anemia; hemoglobin today 6.9-6.6, no evidence of external bleeding transfuse 2 units PRBC today and closely monitor H&H and transfuse additional, Stool for occult blood --L Intertrochanteric femur fracture, displaced s/p Left femur IM trochanteric nailing Pain management, PT OT, rehabilitation, -- Hyperglcycemia: A1c 5.6% Likely steroid induce. Accu-Chek sliding scale coverage as needed --Hypertension; moderate control Continue current antihypertensives and when necessary medications --Cirrhosis; Stable, Ammonia level normal --Anemia, Anemia sec to CKD, closely monitor H&H and transfuse as needed --Acute on CKD (chronic kidney disease) Nephrology following. HD as needed --DVT prophylaxis; heparin renal dose if okay with orthopedics Plan of care is reviewed with the patient his and the nurse History Interval history: Patient seen and examined medical records reviewed Patient feels slightly better no new complaints However hemoglobin significantly dropped to 6.6 Will type and cross and transfuse 2 units of PRBC Patient is tolerating physical therapy Alert awake oriented 3 Vital signs reviewed Hospitalist Physical - Constitutional Vitals: Temp Pulse Resp BP Pulse Ox 98.8 F 74 18 136/87 95 01/02/18 11:05 01/02/18 11:05 01/02/18 11:05 01/02/18 11:05 01/02/18 11:49 General appearance: Present: no acute distress, well-nourished - EENT Eyes: Present: PERRL, EOM intact - Neck Neck: Present: supple, normal ROM - Respiratory Respiratory effort: normal Respiratory: bilateral: diminished, negative: rales, rhonchi, wheezing - Cardiovascular Rhythm: regular Heart Sounds: Present: S1 & S2 - Extremities Extremities: no ischemia, pulses intact - Abdominal General gastrointestinal: soft, non-tender, non-distended, normal bowel sounds - Integumentary Integumentary: Present: clear, warm - Psychiatric Psychiatric: appropriate mood/affect, cooperative - Neurologic Neurologic: CNII-XII intact, moves all extremities Results - Labs CBC & Chem 7: 01/02/18 10:13 01/02/18 10:13 Labs: Laboratory Last Values WBC 4.5 K/mm3 (4.5-11.0) 01/02/18 10:13 RBC 2.22 M/mm3 (3.65-5.03) L 01/02/18 10:13 Hgb 6.6 gm/dl (11.8-15.2) L 01/02/18 10:13 Hct 20.6 % (35.5-45.6) L 01/02/18 10:13 MCV 93 fl (84-94) 01/02/18 10:13 MCH 30 pg (28-32) 01/02/18 10:13 MCHC 32 % (32-34) 01/02/18 10:13 RDW 16.1 % (13.2-15.2) H 01/02/18 10:13 Plt Count 130 K/mm3 (140-440) L 01/02/18 10:13 [place] % (Auto) E Learning Specialist 01/02/18 10:13 Add Manual Diff Complete 01/02/18 10:13 Total Counted 100 01/02/18 10:13 Seg Neuts % (Manual) 73.0 % (40.0-70.0) H 01/02/18 10:13 Band Neutrophils % 0 % 01/02/18 10:13 Lymphocytes % (Manual) 17.0 % (13.4-35.0) 01/02/18 10:13 Reactive Lymphs % (Man) 0 % 01/02/18 10:13 Monocytes % (Manual) 7.0 % (0.0-7.3) 01/02/18 10:13 Eosinophils % (Manual) 3.0 % (0.0-4.3) 01/02/18 10:13 Basophils % (Manual) 0 % (0.0-1.8) 01/02/18 10:13 Metamyelocytes % 0 % 01/02/18 10:13 Myelocytes % 0 % 01/02/18 10:13 Promyelocytes % 0 % 01/02/18 10:13 Blast Cells % 0 % 01/02/18 10:13 Nucleated RBC % Not Reportable 01/02/18 10:13 Seg Neutrophils # Man 3.3 K/mm3 (1.8-7.7) 01/02/18 10:13 Band Neutrophils # 0.0 K/mm3 01/02/18 10:13 Lymphocytes # (Manual) 0.8 K/mm3 (1.2-5.4) L 01/02/18 10:13 Abs React Lymphs (Man) 0.0 K/mm3 01/02/18 10:13 Monocytes # (Manual) 0.3 K/mm3 (0.0-0.8) 01/02/18 10:13 Eosinophils # (Manual) 0.1 K/mm3 (0.0-0.4) 01/02/18 10:13 Basophils # (Manual) 0.0 K/mm3 (0.0-0.1) 01/02/18 10:13 Metamyelocytes # 0.0 K/mm3 01/02/18 10:13 Myelocytes # 0.0 K/mm3 01/02/18 10:13 Promyelocytes # 0.0 K/mm3 01/02/18 10:13 Blast Cells # 0.0 K/mm3 01/02/18 10:13 WBC Morphology Not Reportable 01/02/18 10:13 Hypersegmented Neuts Not Reportable 01/02/18 10:13 Hyposegmented Neuts Not Reportable 01/02/18 10:13 Hypogranular Neuts Not Reportable 01/02/18 10:13 Smudge Cells Not Reportable 01/02/18 10:13 Toxic Granulation Not Reportable 01/02/18 10:13 Toxic Vacuolation Not Reportable 01/02/18 10:13 Dohle Bodies Not Reportable 01/02/18 10:13 Pelger-Huet Anomaly Not Reportable 01/02/18 10:13 Caitlin Rods Not Reportable 01/02/18 10:13 Platelet Estimate Consistent w auto 01/02/18 10:13 Clumped Platelets Not Reportable 01/02/18 10:13 Plt Clumps, EDTA Not Reportable 01/02/18 10:13 Large Platelets Not Reportable 01/02/18 10:13 Giant Platelets Not Reportable 01/02/18 10:13 Platelet Satelliting Not Reportable 01/02/18 10:13 Plt Morphology Comment Not Reportable 01/02/18 10:13 RBC Morphology Not Reportable 01/02/18 10:13 Dimorphic RBCs Not Reportable 01/02/18 10:13 Polychromasia Not Reportable 01/02/18 10:13 Hypochromasia Not Reportable 01/02/18 10:13 Poikilocytosis Not Reportable 01/02/18 10:13 Anisocytosis 1+ 01/02/18 10:13 Microcytosis Not Reportable 01/02/18 10:13 Macrocytosis Not Reportable 01/02/18 10:13 Spherocytes Not Reportable 01/02/18 10:13 Pappenheimer Bodies Not Reportable 01/02/18 10:13 Sickle Cells Not Reportable 01/02/18 10:13 Target Cells Not Reportable 01/02/18 10:13 Tear Drop Cells Not Reportable 01/02/18 10:13 Ovalocytes Not Reportable 01/02/18 10:13 Helmet Cells Not Reportable 01/02/18 10:13 [place] Bodies Not Reportable 01/02/18 10:13 [place] Rings Not Reportable 01/02/18 10:13 [place] Cells Not Reportable 01/02/18 10:13 Bite Cells Not Reportable 01/02/18 10:13 Crenated Cell Not Reportable 01/02/18 10:13 Elliptocytes Not Reportable 01/02/18 10:13 Acanthocytes (Spur) Not Reportable 01/02/18 10:13 Rouleaux Not Reportable 01/02/18 10:13 Hemoglobin C Crystals Not Reportable 01/02/18 10:13 Schistocytes Not Reportable 01/02/18 10:13 Malaria parasites Not Reportable 01/02/18 10:13 Trent Bodies Not Reportable 01/02/18 10:13 Hem Pathologist Commnt No 01/02/18 10:13 PT 14.1 Sec. (12.2-14.9) 12/25/17 20:46 INR 1.04 (0.87-1.13) 12/25/17 20:46 APTT 31.8 Sec. (24.2-36.6) 12/25/17 20:46 Sodium 148 mmol/L (137-145) H 01/02/18 10:13 Potassium 3.8 mmol/L (3.6-5.0) 01/02/18 10:13 Chloride 105.5 mmol/L (98-107) 01/02/18 10:13 Carbon Dioxide 24 mmol/L (22-30) 01/02/18 10:13 Anion Gap 22 mmol/L 01/02/18 10:13 BUN 52 mg/dL (9-20) H 01/02/18 10:13 Creatinine 3.5 mg/dL (0.8-1.5) H 01/02/18 10:13 Estimated GFR 22 ml/min 01/02/18 10:13 BUN/Creatinine Ratio 15 % 01/02/18 10:13 Glucose 119 mg/dL (75-100) H 01/02/18 10:13 POC Glucose 120 (70-105) H 01/02/18 11:54 Hemoglobin A1c 5.0 % (4-6) 12/26/17 13:07 Calcium 8.7 mg/dL (8.4-10.2) 01/02/18 10:13 Iron 13 ug/dL (49-181) L 12/26/17 13:07 TIBC 200 mcg/dL (250-450) L 12/26/17 13:07 % Saturation 6.50 % 12/26/17 13:07 Transferrin 182 mg/dl (180-329) 12/26/17 13:07 Total Bilirubin 0.40 mg/dL (0.1-1.2) 12/28/17 11:30 AST 51 units/L (5-40) H 12/28/17 11:30 ALT 28 units/L (7-56) 12/28/17 11:30 Alkaline Phosphatase 150 units/L (35-129) H 12/28/17 11:30 Ammonia 45.0 umol/L (25-60) 12/25/17 20:46 Total Protein 5.4 g/dL (6.3-8.2) L 12/28/17 11:30 Albumin 3.0 g/dL (3.9-5) L 12/28/17 11:30 Albumin/Globulin Ratio 1.3 % 12/28/17 11:30 Vitamin B12 1858 pg/mL (211-911) H 12/26/17 13:07 RBC Folic Acid >1000 ng/mL (>280) 12/26/17 13:07 Hepatitis A IgM Ab Non-reactive (NonReactive) 12/26/17 16:06 Hep Bs Antigen Non-reactive (Negative) 12/26/17 16:06 Hep B Core IgM Ab Non-reactive (NonReactive) 12/26/17 16:06 Hepatitis C Antibody Non-reactive (NonReactive) 12/26/17 16:06 Blood Type A POSITIVE 12/29/17 08:40 Antibody Screen Negative 12/29/17 08:40
[2018-01-02] MEDS: MORPHINE IV PRN (13:31)
[2018-01-02] MEDS ORDERED: NACL 0.9% 500 ML 500 ML ONE (16:17)
[2018-01-02] MEDS: PERCOCET 5/325 PO PRN (19:46)
[2018-01-02] MEDS ORDERED: NACL 0.9% 500 ML 500 ML IV SCH (23:00)
[2018-01-03] MEDS: HumaLOG SUB-Q SCH ×5 (00:32→23:00)
[2018-01-03] MEDS: TENORMIN PO SCH ×2 (09:32→21:40)
[2018-01-03] MEDS: NORVASC PO SCH (09:32)
[2018-01-03] MEDS: PEPCID PO SCH (09:32)
[2018-01-03] MEDS: HEPARIN SUB-Q SCH ×2 (09:35→21:38)
[2018-01-03 10:07] LABS: Hematocrit 27.2 % (35.5-45.6); Mean Corpuscular HGB Conc 33 % (32-34); Mean Corpuscular Hemoglobin 30 pg (28-32); Mean Corpuscular Volume 89 fl (84-94); Platelet Count 147 K/mm3 (140-440); Red Blood Count 3.05 M/mm3 (3.65-5.03); Red Cell Distribution Width 17.2 % (13.2-15.2)
[2018-01-03 10:29] LABS: Calcium 8.7 mg/dL (8.4-10.2)
--- NOTE | 2018-01-03 10:43 | Progress Note ---
Assessment and Plan Assessment and plan: 62-year-old male presents to the ER after a fall. Patient has a history of unsteady , alcoholic liver cirrhosis and chronic kidney disease was admitted history of fall and sustained a left femur fracture s/p surgery --Anemia; hemoglobin today 6.9-6.6-9.0, received 2 units PRBC and closely monitor H&H and transfuse additional, --L Intertrochanteric femur fracture, displaced s/p Left femur IM trochanteric nailing Pain management, PT OT, rehabilitation, -- Hyperglcycemia: A1c 5.6% Likely steroid induce. Accu-Chek sliding scale coverage as needed --Hypertension; moderate control Continue current antihypertensives and when necessary medications --Cirrhosis; Stable, Ammonia level normal --Anemia, Anemia sec to CKD, closely monitor H&H and transfuse as needed --Acute on CKD (chronic kidney disease) Nephrology following. HD as needed --DVT prophylaxis; heparin renal dose Plan of care is reviewed with the patient and the nurse DC planning; admit to inpatient rehabilitation unit when bed is available History Interval history: Patient seen and examined medical records reviewed No new events reported by the nursing Patient feels better alert awake oriented 3 Received 2 units of PRBC with significant improvement in hemoglobin Vital signs noted Hospitalist Physical - Constitutional Vitals: Temp Pulse Resp BP Pulse Ox 99.2 F 72 16 124/72 97 01/03/18 03:10 01/03/18 09:32 01/03/18 03:10 01/03/18 09:32 01/03/18 03:10 General appearance: Present: no acute distress, well-nourished - EENT Eyes: Present: PERRL, EOM intact - Neck Neck: Present: supple, normal ROM - Respiratory Respiratory effort: normal Respiratory: bilateral: diminished, negative: rales, rhonchi, wheezing - Cardiovascular Rhythm: regular Heart Sounds: Present: S1 & S2 - Extremities Extremities: no ischemia, No edema - Abdominal General gastrointestinal: soft, non-tender, non-distended, normal bowel sounds - Integumentary Integumentary: Present: clear, warm - Psychiatric Psychiatric: appropriate mood/affect, cooperative - Neurologic Neurologic: CNII-XII intact, moves all extremities Results - Labs CBC & Chem 7: 01/03/18 09:44 01/03/18 09:44 Labs: Laboratory Last Values WBC 4.5 K/mm3 (4.5-11.0) 01/03/18 09:44 RBC 3.05 M/mm3 (3.65-5.03) L 01/03/18 09:44 Hgb 9.0 gm/dl (11.8-15.2) L 01/03/18 09:44 Hct 27.2 % (35.5-45.6) L D 01/03/18 09:44 MCV 89 fl (84-94) 01/03/18 09:44 MCH 30 pg (28-32) 01/03/18 09:44 MCHC 33 % (32-34) 01/03/18 09:44 RDW 17.2 % (13.2-15.2) H 01/03/18 09:44 Plt Count 147 K/mm3 (140-440) 01/03/18 09:44 [place] % (Auto) Splicer Operator 01/03/18 09:44 Add Manual Diff Complete 01/02/18 10:13 Total Counted 100 01/02/18 10:13 Seg Neuts % (Manual) 73.0 % (40.0-70.0) H 01/02/18 10:13 Band Neutrophils % 0 % 01/02/18 10:13 Lymphocytes % (Manual) 17.0 % (13.4-35.0) 01/02/18 10:13 Reactive Lymphs % (Man) 0 % 01/02/18 10:13 Monocytes % (Manual) 7.0 % (0.0-7.3) 01/02/18 10:13 Eosinophils % (Manual) 3.0 % (0.0-4.3) 01/02/18 10:13 Basophils % (Manual) 0 % (0.0-1.8) 01/02/18 10:13 Metamyelocytes % 0 % 01/02/18 10:13 Myelocytes % 0 % 01/02/18 10:13 Promyelocytes % 0 % 01/02/18 10:13 Blast Cells % 0 % 01/02/18 10:13 Nucleated RBC % Not Reportable 01/02/18 10:13 Seg Neutrophils # Man 3.3 K/mm3 (1.8-7.7) 01/02/18 10:13 Band Neutrophils # 0.0 K/mm3 01/02/18 10:13 Lymphocytes # (Manual) 0.8 K/mm3 (1.2-5.4) L 01/02/18 10:13 Abs React Lymphs (Man) 0.0 K/mm3 01/02/18 10:13 Monocytes # (Manual) 0.3 K/mm3 (0.0-0.8) 01/02/18 10:13 Eosinophils # (Manual) 0.1 K/mm3 (0.0-0.4) 01/02/18 10:13 Basophils # (Manual) 0.0 K/mm3 (0.0-0.1) 01/02/18 10:13 Metamyelocytes # 0.0 K/mm3 01/02/18 10:13 Myelocytes # 0.0 K/mm3 01/02/18 10:13 Promyelocytes # 0.0 K/mm3 01/02/18 10:13 Blast Cells # 0.0 K/mm3 01/02/18 10:13 WBC Morphology Not Reportable 01/02/18 10:13 Hypersegmented Neuts Not Reportable 01/02/18 10:13 Hyposegmented Neuts Not Reportable 01/02/18 10:13 Hypogranular Neuts Not Reportable 01/02/18 10:13 Smudge Cells Not Reportable 01/02/18 10:13 Toxic Granulation Not Reportable 01/02/18 10:13 Toxic Vacuolation Not Reportable 01/02/18 10:13 Dohle Bodies Not Reportable 01/02/18 10:13 Pelger-Huet Anomaly Not Reportable 01/02/18 10:13 Caitlin Rods Not Reportable 01/02/18 10:13 Platelet Estimate Consistent w auto 01/02/18 10:13 Clumped Platelets Not Reportable 01/02/18 10:13 Plt Clumps, EDTA Not Reportable 01/02/18 10:13 Large Platelets Not Reportable 01/02/18 10:13 Giant Platelets Not Reportable 01/02/18 10:13 Platelet Satelliting Not Reportable 01/02/18 10:13 Plt Morphology Comment Not Reportable 01/02/18 10:13 RBC Morphology Not Reportable 01/02/18 10:13 Dimorphic RBCs Not Reportable 01/02/18 10:13 Polychromasia Not Reportable 01/02/18 10:13 Hypochromasia Not Reportable 01/02/18 10:13 Poikilocytosis Not Reportable 01/02/18 10:13 Anisocytosis 1+ 01/02/18 10:13 Microcytosis Not Reportable 01/02/18 10:13 Macrocytosis Not Reportable 01/02/18 10:13 Spherocytes Not Reportable 01/02/18 10:13 Pappenheimer Bodies Not Reportable 01/02/18 10:13 Sickle Cells Not Reportable 01/02/18 10:13 Target Cells Not Reportable 01/02/18 10:13 Tear Drop Cells Not Reportable 01/02/18 10:13 Ovalocytes Not Reportable 01/02/18 10:13 Helmet Cells Not Reportable 01/02/18 10:13 [place] Bodies Not Reportable 01/02/18 10:13 [place] Rings Not Reportable 01/02/18 10:13 Sil Cells Not Reportable 01/02/18 10:13 Bite Cells Not Reportable 01/02/18 10:13 Crenated Cell Not Reportable 01/02/18 10:13 Elliptocytes Not Reportable 01/02/18 10:13 Acanthocytes (Spur) Not Reportable 01/02/18 10:13 Rouleaux Not Reportable 01/02/18 10:13 Hemoglobin C Crystals Not Reportable 01/02/18 10:13 Schistocytes Not Reportable 01/02/18 10:13 Malaria parasites Not Reportable 01/02/18 10:13 [place] Bodies Not Reportable 01/02/18 10:13 Hem Pathologist Commnt No 01/02/18 10:13 PT 14.1 Sec. (12.2-14.9) 12/25/17 20:46 INR 1.04 (0.87-1.13) 12/25/17 20:46 APTT 31.8 Sec. (24.2-36.6) 12/25/17 20:46 Sodium 146 mmol/L (137-145) H 01/03/18 09:44 Potassium 4.0 mmol/L (3.6-5.0) 01/03/18 09:44 Chloride 108.0 mmol/L (98-107) H 01/03/18 09:44 Carbon Dioxide 23 mmol/L (22-30) 01/03/18 09:44 Anion Gap 19 mmol/L 01/03/18 09:44 BUN 47 mg/dL (9-20) H 01/03/18 09:44 Creatinine 3.4 mg/dL (0.8-1.5) H 01/03/18 09:44 Estimated GFR 22 ml/min 01/03/18 09:44 BUN/Creatinine Ratio 14 % 01/03/18 09:44 Glucose 143 mg/dL (75-100) H 01/03/18 09:44 POC Glucose 100 (70-105) 01/03/18 07:50 Hemoglobin A1c 5.0 % (4-6) 12/26/17 13:07 Calcium 8.7 mg/dL (8.4-10.2) 01/03/18 09:44 Iron 13 ug/dL (49-181) L 12/26/17 13:07 TIBC 200 mcg/dL (250-450) L 12/26/17 13:07 % Saturation 6.50 % 12/26/17 13:07 Transferrin 182 mg/dl (180-329) 12/26/17 13:07 Total Bilirubin 0.40 mg/dL (0.1-1.2) 12/28/17 11:30 AST 51 units/L (5-40) H 12/28/17 11:30 ALT 28 units/L (7-56) 12/28/17 11:30 Alkaline Phosphatase 150 units/L (35-129) H 12/28/17 11:30 Ammonia 45.0 umol/L (25-60) 12/25/17 20:46 Total Protein 5.4 g/dL (6.3-8.2) L 12/28/17 11:30 Albumin 3.0 g/dL (3.9-5) L 12/28/17 11:30 Albumin/Globulin Ratio 1.3 % 12/28/17 11:30 Vitamin B12 1858 pg/mL (211-911) H 12/26/17 13:07 RBC Folic Acid >1000 ng/mL (>280) 12/26/17 13:07 Hepatitis A IgM Ab Non-reactive (NonReactive) 12/26/17 16:06 Hep Bs Antigen Non-reactive (Negative) 12/26/17 16:06 Hep B Core IgM Ab Non-reactive (NonReactive) 12/26/17 16:06 Hepatitis C Antibody Non-reactive (NonReactive) 12/26/17 16:06 Blood Type A POSITIVE 01/02/18 13:58 Antibody Screen Negative 01/02/18 13:58 Crossmatch See Detail 01/02/18 13:58
--- NOTE | 2018-01-03 11:17 | Progress Note ---
Assessment and Plan impression * Acute on chronic renal failure. Stage IV * Left hip fracture * Hypertension * anemia recommendations * His serum creatinine is stabilizing . * Serum sodium high normal . Continue gentle hydration * No urgent indication for dialysis today. Continue to monitor his renal function closely * Need strict intake and output. Discussed with patient * Avoid nephrotoxins * Monitor fluid status and electrolytes closely * packed RBC transfusion as needed Subjective Date of service: 01/03/18 Principal diagnosis: displaced right intratrochenteric fx, MONI requiring HD, liver cirrhosis Interval history: patient is comfortable. Denies any shortness of breath. No nausea or vomiting Objective - Vital Signs Vital signs: Vital Signs - 12hr 01/02/18 01/03/18 01/03/18 23:58 00:13 00:31 Temperature 99 F 99 F 98.6 F Pulse Rate 69 68 71 Respiratory 17 17 18 Rate Blood Pressure 133/88 133/88 136/94 Blood Pressure [Right] O2 Sat by Pulse 96 97 94 Oximetry 01/03/18 01/03/18 01/03/18 00:43 01:13 01:43 Temperature 98.9 F 98.9 F 99.7 F H Pulse Rate 72 73 73 Respiratory 17 16 Rate Blood Pressure 145/69 140/86 141/96 Blood Pressure [Right] O2 Sat by Pulse 96 96 96 Oximetry 01/03/18 01/03/18 01/03/18 02:13 02:43 03:00 Temperature 99 F 98.9 F 99.2 F Pulse Rate 72 72 72 Respiratory 17 17 16 Rate Blood Pressure 140/92 137/86 Blood Pressure 124/72 [Right] O2 Sat by Pulse 97 97 Oximetry 01/03/18 01/03/18 03:10 09:32 Temperature 99.2 F Pulse Rate 72 72 Respiratory 16 Rate Blood Pressure 124/72 124/72 Blood Pressure [Right] O2 Sat by Pulse 97 Oximetry - General Appearance General appearance: well-developed, well-nourished, appears stated age EENT: PERRL, mucous membranes moist Neck: no JVD, no thyromegaly, no carotid bruit, supple, other (right IJ vascath in place ) Respiratory: Present: Clear to Ascultation Cardiology: regular, normal heart rate, S1S2, no murmurs Gastrointestinal: normal, normoactive bowel sounds Integumentary: no rash, other (dressing pver left hip ) - Lab 01/03/18 09:44 01/03/18 09:44 Most recent lab results Calcium 8.7 mg/dL (8.4-10.2) 01/03/18 09:44
[2018-01-03 12:00] LABS: Total Cells Counted 100
[2018-01-03 12:01] LABS: Anisocytosis 1+; Hypochromasia 1+; Platelet Estimate Consistent w Auto
[2018-01-04] MEDS: SODIUM CHLORIDE FLUSH SYRINGE 10 ML IV SCH ×2 (02:16→09:13)
[2018-01-04 06:53] LABS: Basophils % (Auto) 0.7 % (0.0-1.8); Eosinophils # (Auto) 0.1 K/mm3 (0.0-0.4); Eosinophils % (Auto) 1.7 % (0.0-4.3); Hematocrit 27.9 % (35.5-45.6); Hemoglobin 9.3 gm/dl (11.8-15.2); Lymphocytes # (Auto) 0.8 K/mm3 (1.2-5.4); Lymphocytes % (Auto) 15.7 % (13.4-35.0); Mean Corpuscular HGB Conc 33 % (32-34); Mean Corpuscular Hemoglobin 30 pg (28-32); Mean Corpuscular Volume 90 fl (84-94); Monocytes # (Auto) 0.8 K/mm3 (0.0-0.8); Monocytes % (Auto) 15.3 % (0.0-7.3); Platelet Count 153 K/mm3 (140-440); Red Cell Distribution Width 17.3 % (13.2-15.2)
[2018-01-04 07:14] LABS: Calcium 8.8 mg/dL (8.4-10.2)
[2018-01-04] MEDS: HumaLOG SUB-Q SCH ×2 (08:30→12:30)
--- NOTE | 2018-01-04 09:02 | Progress Note ---
Assessment and Plan impression * Acute on chronic renal failure. Stage IV * Left hip fracture * Hypertension * anemia recommendations * His serum creatinine is improving . * Serum sodium is better . Reduce IV fluid * Don't anticipate need for further dialysis . Continue to monitor his renal function closely * strict intake and output. * Discussed with patient and his at bedside * Avoid nephrotoxins * Monitor fluid status and electrolytes closely Subjective Date of service: 01/04/18 Principal diagnosis: displaced right intratrochenteric fx, MONI requiring HD, liver cirrhosis Interval history: patient is comfortable. Denies any shortness of breath. No nausea or vomiting Objective - Vital Signs Vital signs: Vital Signs - 12hr 01/03/18 01/03/18 01/04/18 21:40 23:35 05:48 Temperature 98.8 F 98.7 F Pulse Rate 70 73 73 Respiratory 18 17 Rate Blood Pressure 146/92 154/98 132/84 O2 Sat by Pulse 98 93 Oximetry 01/04/18 06:59 Temperature 98.7 F Pulse Rate 74 Respiratory 20 Rate Blood Pressure 140/86 O2 Sat by Pulse 96 Oximetry - General Appearance General appearance: well-developed, well-nourished, appears stated age EENT: PERRL, mucous membranes moist Neck: no JVD, no thyromegaly, no carotid bruit, supple, other (right IJ vascath in place ) Respiratory: Present: Clear to Ascultation Cardiology: regular, normal heart rate, S1S2, no murmurs Gastrointestinal: normal, normoactive bowel sounds Integumentary: no rash, other (dressing over left hip ) - Lab 01/04/18 06:06 01/04/18 06:06 Most recent lab results Calcium 8.8 mg/dL (8.4-10.2) 01/04/18 06:06
[2018-01-04] MEDS: NORVASC PO SCH (09:07)
[2018-01-04] MEDS: PEPCID PO SCH (09:07)
[2018-01-04] MEDS: TENORMIN PO SCH (09:07)
[2018-01-04] MEDS: HEPARIN SUB-Q SCH (09:08)
[2018-01-04] MEDS: PERCOCET 5/325 PO PRN (09:18)
--- NOTE | 2018-01-04 10:07 | Progress Note ---
Assessment and Plan Assessment and plan: 62-year-old male presents to the ER after a fall. Patient has a history of unsteady , alcoholic liver cirrhosis and chronic kidney disease was admitted history of fall and sustained a left femur fracture s/p surgery --Anemia; hemoglobin today 6.9-6.6-9.0, received 2 units PRBC and closely monitor H&H and transfuse additional, --L Intertrochanteric femur fracture, displaced s/p Left femur IM trochanteric nailing Pain management, PT OT, rehabilitation, -- Hyperglcycemia: A1c 5.6% Likely steroid induce. Accu-Chek sliding scale coverage as needed --Hypertension; moderate control Continue current antihypertensives and when necessary medications --Cirrhosis; Stable, Ammonia level normal --Anemia, Anemia sec to CKD, closely monitor H&H and transfuse as needed --Acute on CKD (chronic kidney disease) Nephrology following. HD as needed --DVT prophylaxis; heparin renal dose Plan of care is reviewed with the patient and the nurse DC planning; admit to inpatient rehabilitation unit when bed is available Hospitalist Physical - Constitutional Vitals: Temp Pulse Resp BP Pulse Ox 98.7 F 74 20 140/86 96 01/04/18 06:59 01/04/18 06:59 01/04/18 09:18 01/04/18 06:59 01/04/18 06:59 General appearance: Present: no acute distress, well-nourished Results - Labs CBC & Chem 7: 01/04/18 06:06 01/04/18 06:06 Labs: Laboratory Last Values WBC 5.1 K/mm3 (4.5-11.0) 01/04/18 06:06 RBC 3.10 M/mm3 (3.65-5.03) L 01/04/18 06:06 Hgb 9.3 gm/dl (11.8-15.2) L 01/04/18 06:06 Hct 27.9 % (35.5-45.6) L 01/04/18 06:06 MCV 90 fl (84-94) 01/04/18 06:06 MCH 30 pg (28-32) 01/04/18 06:06 MCHC 33 % (32-34) 01/04/18 06:06 RDW 17.3 % (13.2-15.2) H 01/04/18 06:06 Plt Count 153 K/mm3 (140-440) 01/04/18 06:06 Lymph % (Auto) 15.7 % (13.4-35.0) 01/04/18 06:06 [place] % (Auto) 15.3 % (0.0-7.3) H 01/04/18 06:06 Eos % (Auto) 1.7 % (0.0-4.3) 01/04/18 06:06 Baso % (Auto) 0.7 % (0.0-1.8) 01/04/18 06:06 Lymph # 0.8 K/mm3 (1.2-5.4) L 01/04/18 06:06 [place] # 0.8 K/mm3 (0.0-0.8) 01/04/18 06:06 Eos # 0.1 K/mm3 (0.0-0.4) 01/04/18 06:06 Baso # 0.0 K/mm3 (0.0-0.1) 01/04/18 06:06 Add Manual Diff Complete 01/03/18 09:44 Total Counted 100 01/03/18 09:44 Seg Neutrophils % 66.6 % (40.0-70.0) 01/04/18 06:06 Seg Neuts % (Manual) 67.0 % (40.0-70.0) 01/03/18 09:44 Band Neutrophils % 0 % 01/03/18 09:44 Lymphocytes % (Manual) 13.0 % (13.4-35.0) L 01/03/18 09:44 Reactive Lymphs % (Man) 0 % 01/03/18 09:44 Monocytes % (Manual) 13.0 % (0.0-7.3) H 01/03/18 09:44 Eosinophils % (Manual) 6.0 % (0.0-4.3) H 01/03/18 09:44 Basophils % (Manual) 1.0 % (0.0-1.8) 01/03/18 09:44 Metamyelocytes % 0 % 01/03/18 09:44 Myelocytes % 0 % 01/03/18 09:44 Promyelocytes % 0 % 01/03/18 09:44 Blast Cells % 0 % 01/03/18 09:44 Nucleated RBC % Not Reportable 01/03/18 09:44 Seg Neutrophils # 3.4 K/mm3 (1.8-7.7) 01/04/18 06:06 Seg Neutrophils # Man 3.0 K/mm3 (1.8-7.7) 01/03/18 09:44 Band Neutrophils # 0.0 K/mm3 01/03/18 09:44 Lymphocytes # (Manual) 0.6 K/mm3 (1.2-5.4) L 01/03/18 09:44 Abs React Lymphs (Man) 0.0 K/mm3 01/03/18 09:44 Monocytes # (Manual) 0.6 K/mm3 (0.0-0.8) 01/03/18 09:44 Eosinophils # (Manual) 0.3 K/mm3 (0.0-0.4) 01/03/18 09:44 Basophils # (Manual) 0.0 K/mm3 (0.0-0.1) 01/03/18 09:44 Metamyelocytes # 0.0 K/mm3 01/03/18 09:44 Myelocytes # 0.0 K/mm3 01/03/18 09:44 Promyelocytes # 0.0 K/mm3 01/03/18 09:44 Blast Cells # 0.0 K/mm3 01/03/18 09:44 WBC Morphology Not Reportable 01/03/18 09:44 Hypersegmented Neuts Not Reportable 01/03/18 09:44 Hyposegmented Neuts Not Reportable 01/03/18 09:44 Hypogranular Neuts Not Reportable 01/03/18 09:44 Smudge Cells Not Reportable 01/03/18 09:44 Toxic Granulation Not Reportable 01/03/18 09:44 Toxic Vacuolation Not Reportable 01/03/18 09:44 Dohle Bodies Not Reportable 01/03/18 09:44 Pelger-Huet Anomaly Not Reportable 01/03/18 09:44 Caitlin Rods Not Reportable 01/03/18 09:44 Platelet Estimate Consistent w auto 01/03/18 09:44 Clumped Platelets Not Reportable 01/03/18 09:44 Plt Clumps, EDTA Not Reportable 01/03/18 09:44 Large Platelets Not Reportable 01/03/18 09:44 Giant Platelets Not Reportable 01/03/18 09:44 Platelet Satelliting Not Reportable 01/03/18 09:44 Plt Morphology Comment Not Reportable 01/03/18 09:44 RBC Morphology Not Reportable 01/03/18 09:44 Dimorphic RBCs Not Reportable 01/03/18 09:44 Polychromasia Not Reportable 01/03/18 09:44 Hypochromasia 1+ 01/03/18 09:44 Poikilocytosis Not Reportable 01/03/18 09:44 Anisocytosis 1+ 01/03/18 09:44 Microcytosis Not Reportable 01/03/18 09:44 Macrocytosis Not Reportable 01/03/18 09:44 Spherocytes Not Reportable 01/03/18 09:44 Pappenheimer Bodies Not Reportable 01/03/18 09:44 Sickle Cells Not Reportable 01/03/18 09:44 Target Cells Not Reportable 01/03/18 09:44 Tear Drop Cells Not Reportable 01/03/18 09:44 Ovalocytes Not Reportable 01/03/18 09:44 Helmet Cells Not Reportable 01/03/18 09:44 Montoya-Steger Bodies Not Reportable 01/03/18 09:44 Barre Rings Not Reportable 01/03/18 09:44 Hamilton Cells Not Reportable 01/03/18 09:44 Bite Cells Not Reportable 01/03/18 09:44 Crenated Cell Not Reportable 01/03/18 09:44 Elliptocytes Not Reportable 01/03/18 09:44 Acanthocytes (Spur) Not Reportable 01/03/18 09:44 Rouleaux Not Reportable 01/03/18 09:44 Hemoglobin C Crystals Not Reportable 01/03/18 09:44 Schistocytes Not Reportable 01/03/18 09:44 Malaria parasites Not Reportable 01/03/18 09:44 Trent Bodies Not Reportable 01/03/18 09:44 Hem Pathologist Commnt No 01/03/18 09:44 PT 14.1 Sec. (12.2-14.9) 12/25/17 20:46 INR 1.04 (0.87-1.13) 12/25/17 20:46 APTT 31.8 Sec. (24.2-36.6) 12/25/17 20:46 Sodium 144 mmol/L (137-145) 01/04/18 06:06 Potassium 3.9 mmol/L (3.6-5.0) 01/04/18 06:06 Chloride 106.5 mmol/L (98-107) 01/04/18 06:06 Carbon Dioxide 23 mmol/L (22-30) 01/04/18 06:06 Anion Gap 18 mmol/L 01/04/18 06:06 BUN 43 mg/dL (9-20) H 01/04/18 06:06 Creatinine 2.8 mg/dL (0.8-1.5) H 01/04/18 06:06 Estimated GFR 28 ml/min 01/04/18 06:06 BUN/Creatinine Ratio 15 % 01/04/18 06:06 Glucose 109 mg/dL (75-100) H 01/04/18 06:06 POC Glucose 119 (70-105) H 01/04/18 07:09 Hemoglobin A1c 5.0 % (4-6) 12/26/17 13:07 Calcium 8.8 mg/dL (8.4-10.2) 01/04/18 06:06 Iron 13 ug/dL (49-181) L 12/26/17 13:07 TIBC 200 mcg/dL (250-450) L 12/26/17 13:07 % Saturation 6.50 % 12/26/17 13:07 Transferrin 182 mg/dl (180-329) 12/26/17 13:07 Total Bilirubin 0.40 mg/dL (0.1-1.2) 12/28/17 11:30 AST 51 units/L (5-40) H 12/28/17 11:30 ALT 28 units/L (7-56) 12/28/17 11:30 Alkaline Phosphatase 150 units/L (35-129) H 12/28/17 11:30 Ammonia 45.0 umol/L (25-60) 12/25/17 20:46 Total Protein 5.4 g/dL (6.3-8.2) L 12/28/17 11:30 Albumin 3.0 g/dL (3.9-5) L 12/28/17 11:30 Albumin/Globulin Ratio 1.3 % 12/28/17 11:30 Vitamin B12 1858 pg/mL (211-911) H 12/26/17 13:07 RBC Folic Acid >1000 ng/mL (>280) 12/26/17 13:07 Hepatitis A IgM Ab Non-reactive (NonReactive) 12/26/17 16:06 Hep Bs Antigen Non-reactive (Negative) 12/26/17 16:06 Hep B Core IgM Ab Non-reactive (NonReactive) 12/26/17 16:06 Hepatitis C Antibody Non-reactive (NonReactive) 12/26/17 16:06 Blood Type A POSITIVE 01/02/18 13:58 Antibody Screen Negative 01/02/18 13:58 Crossmatch See Detail 01/02/18 13:58
[2018-01-04] MEDS ORDERED: NEURONTIN PO SCH (14:00)
--- NOTE | 2018-01-04 15:10 | Discharge Summary ---
Providers - Providers Date of Admission: 12/25/17 22:47 Date of discharge: 01/04/18 Attending physician: KYREE DOUGLAS 12/25/17 20:28 Consult to Physician [CONS] Stat Comment: Consulting Provider: HOLDEN FARLEY Physician Instructions: Reason For Exam: femur fracture 12/26/17 08:27 Consult to Physician [CONS] Routine Comment: Consulting Provider: GABRIELA RICE Physician Instructions: Reason For Exam: CKD and Medical Clearance 12/26/17 12:16 Consult to Physician [CONS] Urgent Comment: Consulting Provider: MCKAY VIERA Physician Instructions: Reason For Exam: permcath 12/29/17 20:38 Physical Therapy Evaluation and Treat [CONS] Routine Comment: Reason For Exam: postop evaluation Weight bearing status?: Partial wt bearing Assistive devices?: Yes If so list: Walker Primary care physician: [employer] [employer] [employer] Hospitalization Reason for admission: history of fall/left femur fracture Condition: Stable Pertinent studies: Knee x-ray Foot x-ray Hip x-ray Shoulder x-ray Echocardiogram Femur x-ray echo Procedures: Right internal jugular Vas-Cath placement Left femur rodding/open reduction internal fixation Closed reduction and insertion of intramedullary nail in the left femur Hospital course: Very pleasant 60-year-old male patient with significant past medical history of chronic kidney disease cirrhosis hypertension had fall 4 days prior to the admission and was unable to walk Patient was initially evaluated in the ED had multiple imaging studies Which revealed left femur fracture., Patient was admitted and later evaluated by Dr. Farley orthopedic surgeon in consultation, and patient underwent rodding and ORIF, insertion of intramedullary nail in the left femur. She was also evaluated by nephrology, had Vas-Cath placement And patient underwent hemodialysis as needed Patient started on physical therapy and occupational therapy In today patient is comfortable tolerating therapy Acute rehabilitation evaluated the patient, and accepted for acute rehabilitation. Patient is being discharged and transferred to acute rehabilitation today for further management. Patient is hemodynamically and clinically stable at discharge Discharge diagnosis; --Anemia; received 2 units PRBC hb 6.9-6.6-9.0, --L Intertrochanteric femur fracture, displaced s/p Left femur IM trochanteric nailing -- Hyperglcycemia: A1c 5.6% Likely steroid induce. Accu-Chek SSC as needed --Hypertension; moderate control; on antihypertensives --Cirrhosis; Stable, Ammonia level normal --Acute on CKD (chronic kidney disease) HD as needed --History of gout; continue current management Patient is stable to be discharged to inpatient rehabilitation todaY Disposition: [id number] Time spent for discharge: 35 min Core Measure Documentation - Palliative Care Palliative Care/ Comfort Measures: Not Applicable - Core Measures Any of the following diagnoses?: none Exam - Constitutional Vitals: Temp Pulse Resp BP Pulse Ox 98.8 F 79 20 138/90 95 01/04/18 11:12 01/04/18 11:12 01/04/18 11:12 01/04/18 11:12 01/04/18 11:12 General appearance: Present: no acute distress, well-nourished - EENT Eyes: Present: PERRL, EOM intact - Neck Neck: Present: supple, normal ROM - Respiratory Respiratory effort: normal Respiratory: bilateral: diminished, negative: rales, rhonchi, wheezing - Cardiovascular Rhythm: regular Heart Sounds: Present: S1 & S2 - Extremities Extremities: no ischemia, No edema Peripheral Pulses: within normal limits - Abdominal General gastrointestinal: Present: soft, non-tender, non-distended, normal bowel sounds - Integumentary Integumentary: Present: clear, warm - Musculoskeletal Musculoskeletal: strength equal bilaterally - Psychiatric Psychiatric: appropriate mood/affect, cooperative - Neurologic Neurologic: CNII-XII intact, moves all extremities Plan Activity: advance as tolerated, fall precautions Diet: renal Special Instructions: physical therapy, occupational therapy Additional Instructions: Activity as tolerated Follow up with: CANDACE LOPEZ MD [Primary Care Provider] - 3-5 Days HOLDEN FARLEY MD [Staff Physician] - 7 Days
[2018-01-04 15:59] VITALS: BP 133/92
[2018-01-05] MEDS ORDERED: COLCHICINE PO SCH (10:00)
== END 2018-01-04 16:09 | DRG 480 ==
LOC: ED 19:10 → 3B-SURG 22:47
PROVIDERS: ADMIT Internal Medicine; ATTEND Internal Medicine
PROC: 06H033Z Insertion of Infusion Device into Inferior Vena Cava, Percutaneous Approach (ICD-10-PCS; principal; 2017-12-25)
PROC: 0QS736Z Reposition Left Upper Femur with Intramedullary Internal Fixation Device, Percutaneous Approach (ICD-10-PCS; principal; 2017-12-25)
PROC: B5191ZA Fluoroscopy of Inferior Vena Cava using Low Osmolar Contrast, Guidance (ICD-10-PCS; principal; 2017-12-25)
PROC: 30233N1 Transfusion of Nonautologous Red Blood Cells into Peripheral Vein, Percutaneous Approach (ICD-10-PCS; 2017-12-25)
PROC: 5A1D70Z Performance of Urinary Filtration, Intermittent, Less than 6 Hours Per Day (ICD-10-PCS; 2017-12-26)
PROC: 5A1D70Z Performance of Urinary Filtration, Intermittent, Less than 6 Hours Per Day (ICD-10-PCS; 2017-12-27)
PROC: 3E0234Z Introduction of Serum, Toxoid and Vaccine into Muscle, Percutaneous Approach (ICD-10-PCS; 2017-12-28)
DX: S72.142A Displaced intertrochanteric fracture of left femur, initial encounter for closed fracture (principal); G93.40 Encephalopathy, unspecified; N17.9 Acute kidney failure, unspecified; D61.818 Other pancytopenia; N18.4 Chronic kidney disease, stage 4 (severe); M10.9 Gout, unspecified; W01.0XXA Fall on same level from slipping, tripping and stumbling without subsequent striking against object, initial encounter; D63.1 Anemia in chronic kidney disease; R73.9 Hyperglycemia, unspecified; T38.0X5A Adverse effect of glucocorticoids and synthetic analogues, initial encounter; I12.9 Hypertensive chronic kidney disease with stage 1 through stage 4 chronic kidney disease, or unspecified chronic kidney disease; K70.30 Alcoholic cirrhosis of liver without ascites; Z82.49 Family history of ischemic heart disease and other diseases of the circulatory system; Z23 Encounter for immunization; Z91.013 Allergy to seafood; Z79.899 Other long term (current) drug therapy; Y93.89 Activity, other specified; Y92.098 Other place in other non-institutional residence as the place of occurrence of the external cause; Y99.8 Other external cause status
CPT/HCPCS: 36415; 36556; 51702; 80048; 80053; 80074; 82140; 82607; 82747; 82962; 83036; 83550; 85007; 85025; 85027; 85610; 85730; 86850; 86900; 86901; 86920; 90732; 93005; 93010; 93306; 96374; 96375; 96376; C1713; C1752; C1769; J0690; J1170; J1200; J1644; J1815; J2250; J2270; J2370; J2405; J2704; J2930; J3010; J7030; J7040; J7042; J7050; P9016

== ENCOUNTER 2018-01-19 18:59 | Inpatient (IN) | payer BC ==
[2018-01-19] MEDS ORDERED: SODIUM CHLORIDE FLUSH SYRINGE 10 ML IV PRN (20:10)
[2018-01-19] MEDS ORDERED: ZOFRAN IV PRN (20:10)
[2018-01-19] MEDS ORDERED: PROVENTIL IH PRN (20:10)
[2018-01-19] MEDS ORDERED: TYLENOL PO PRN (20:10)
--- NOTE | 2018-01-19 20:10 | History and Physical Report ---
History of Present Illness Date of admission: 01/19/18 18:59 Chief complaint: My kidney is shutting down History of present illness: 62 YO Male with HTN, ESRD, Cirrhosis, ETOH Abuse, Gout admitted directly after discharged by Ortho Surgery service. Pt found to have ESRD and in need of hemodialysis while undergoing rehab S/P Left Femur Fracture. Pt seen and evaluated and readmitted after discharge by Dr. Farley. Pt denies fever, chills , CP, Palpitations, NVD, Trauma, tremors, or recent ill contacts. NO reported nursing events. Past History Past Medical History: ESRD, hypertension, other (Gout, Cirrhosis) Past Surgical History: Other (Left Femur-ORIF) Social history: , alcohol abuse Family history: hypertension Medications and Allergies Allergies Allergy/AdvReac Type Severity Reaction Status Date / Time shellfish derived Allergy Swelling Verified 12/26/17 11:44 Home Medications Medication Instructions Recorded Confirmed Last Taken Type Amlodipine Besylate [Norvasc] 5 mg PO DAILY 12/26/17 01/20/18 12/25/17 10:00 History Atenolol [Tenormin] 50 mg PO DAILY 12/26/17 01/20/18 01/04/18 09:30 History Colchicine [Mitigare] 0.6 mg PO DAILY 12/26/17 01/20/18 12/25/17 08:45 History Febuxostat [Uloric] 40 mg PO DAILY 12/26/17 01/20/18 12/25/17 09:00 History Furosemide [Lasix TAB] 40 mg PO QDAY 12/26/17 01/20/18 12/25/17 08:45 History Gabapentin [Neurontin] 300 mg PO Q8HR 12/26/17 01/20/18 01/04/18 14:25 History Iron 18 mg PO QDAY 12/26/17 01/20/18 12/25/17 08:30 History Magnesium 250 mg PO DAILY 12/26/17 01/20/18 12/25/17 09:00 History 250mg Milk Thistle 175 mg PO DAILY 12/26/17 01/20/18 12/25/17 20:00 History Multivit-Min/FA/Lycopen/Lutein 1 each PO DAILY 12/26/17 01/20/18 12/25/17 06:29 History [Men 50 Plus Multivitamin Tab] 1 Omeprazole 20 mg PO DAILY 12/26/17 01/20/18 12/25/17 History Travoprost [Travatan Z 0.004%] 2.5 ml OP DAILY 12/26/17 01/20/18 12/25/17 History traMADol [Ultram 50 MG tab] 50 mg PO Q6HR PRN 12/26/17 01/20/18 01/26/17 08:40 History Famotidine [Pepcid] 20 mg PO DAILY tablet 01/04/18 01/20/18 01/04/18 09:00 Rx Zolpidem [Ambien] 5 mg PO QHS PRN tablet 01/04/18 01/20/18 12/29/17 21:45 Rx Review of Systems Constitutional: no weight loss, no weight gain, no fever, no chills Ears, nose, mouth and throat: no ear pain, no ear discharge, no tinnitis, no decreased hearing, no nose pain Cardiovascular: no chest pain, no orthopnea, no palpitations, no rapid/ irregular heart beat, no edema, no syncope Respiratory: no cough, no cough with sputum, no excessive sputum, no hemoptysis , no shortness of breath Gastrointestinal: no nausea, no constipation, no change in bowel habits Genitourinary Male: no hematuria, no flank pain, no discharge, no urinary frequency, no urinary hesitancy Rectal: no pain, no incontinence, no bleeding Musculoskeletal: no neck stiffness, no neck pain, no arm numbness/tingling, no low back pain Integumentary: no pruritis, no redness, no sores, no wounds, no jaundice Neurological: no transient paralysis, no paralysis, no weakness, no parathesias , no numbness, no tingling, no seizures Psychiatric: no memory loss, no change in sleep habits, no sleep disturbances, no insomnia, no hypersomnia, no change in appetite Endocrine: no cold intolerance, no heat intolerance, no polyphagia, no excessive thirst, no polydipsia, no polyuria Hematologic/Lymphatic: no easy bruising, no easy bleeding Allergic/Immunologic: no urticaria, no allergic rhinitis, no wheezing Exam - Constitutional General appearance: Present: mild distress - EENT Eyes: Present: PERRL ENT: hearing intact, clear oral mucosa - Neck Neck: Present: supple, normal ROM - Respiratory Respiratory effort: normal Respiratory: bilateral: CTA - Cardiovascular Heart Sounds: Present: S1 & S2. Absent: rub, click - Extremities Extremities: pulses symmetrical, No edema Peripheral Pulses: within normal limits - Abdominal General gastrointestinal: Present: soft, non-tender, non-distended, normal bowel sounds Male genitourinary: Present: normal - Integumentary Integumentary: Present: clear, warm, dry - Musculoskeletal Musculoskeletal: gait normal, strength equal bilaterally - Psychiatric Psychiatric: appropriate mood/affect, intact judgment & insight - Neurologic Neurologic: CNII-XII intact, moves all extremities Assessment and Plan - Patient Problems (1) ESRD (end stage renal disease) Current Visit: Yes Status: Acute Plan to address problem: Nephrology consulted for dialysis, strict I/O, monitor uop q shift, avoid nephrotoxic agents (2) Femur fracture, left Current Visit: No Status: Acute Qualifiers: Encounter type: initial encounter Femur location: intertrochanteric Fracture type: closed Plan to address problem: PT S/P ORIF, Physical therapy consulted, Pt discharged from inpatient Rehab, Case management consulted for D/C planning. (3) Alcoholic cirrhosis of liver Current Visit: No Status: Chronic Qualifiers: Ascites presence: without ascites Qualified Code(s): K70.30 - Alcoholic cirrhosis of liver without ascites Plan to address problem: supportive care, (4) Cirrhosis Current Visit: No Status: Chronic Qualifiers: Hepatic cirrhosis type: alcoholic cirrhosis Ascites presence: without ascites Qualified Code(s): K70.30 - Alcoholic cirrhosis of liver without ascites Plan to address problem: supportive care, ETOH cessation counseling (5) DVT prophylaxis Current Visit: No Status: Acute Plan to address problem: Heparin BID
[2018-01-19] MEDS ORDERED: AMBIEN PO PRN (20:13)
[2018-01-19] MEDS: HEPARIN SUB-Q SCH (23:11)
[2018-01-19] MEDS: SODIUM CHLORIDE FLUSH SYRINGE 10 ML IV SCH (23:12)
[2018-01-19] MEDS: NEURONTIN PO SCH (23:12)
[2018-01-19] MEDS: HumaLOG SUB-Q SCH (23:44)
[2018-01-20] MEDS: LASIX PO SCH (05:42)
[2018-01-20] MEDS: NEURONTIN PO SCH ×3 (05:42→22:36)
[2018-01-20 08:11] LABS: Basophils # (Auto) 0.1 K/mm3 (0.0-0.1); Basophils % (Auto) 0.6 % (0.0-1.8); Hematocrit 28.3 % (35.5-45.6); Lymphocytes # (Auto) 0.6 K/mm3 (1.2-5.4); Lymphocytes % (Auto) 4.3 % (13.4-35.0); Mean Corpuscular HGB Conc 32 % (32-34); Mean Corpuscular Hemoglobin 30 pg (28-32); Mean Corpuscular Volume 93 fl (84-94); Monocytes # (Auto) 1.6 K/mm3 (0.0-0.8); Monocytes % (Auto) 12.5 % (0.0-7.3); Platelet Count 178 K/mm3 (140-440); Red Blood Count 3.05 M/mm3 (3.65-5.03); Red Cell Distribution Width 17.7 % (13.2-15.2)
[2018-01-20] MEDS ORDERED: XYLOCAINE 2% INFILTRATI ONE (08:21)
[2018-01-20] MEDS ORDERED: HEPARIN 10,000 UNITS/10 ML ONE (08:21)
[2018-01-20] MEDS ORDERED: HEPARIN/NS 5000 UNIT/500ML(CATH LAB) 500 ML IR ONE (08:21)
[2018-01-20] MEDS ORDERED: VERSED ONE (08:22)
[2018-01-20] MEDS ORDERED: SUBLIMAZE ONE (08:22)
[2018-01-20 08:27] LABS: Albumin 3.2 g/dL (3.9-5); Calcium 8.2 mg/dL (8.4-10.2)
--- NOTE | 2018-01-20 09:09 | Progress Note ---
Assessment and Plan Assessment and plan: 62 YO Male with HTN, ESRD, Cirrhosis, ETOH Abuse, Gout admitted directly after discharged by Ortho Surgery service and underwent a left hip replacement surgery. While in the hospital was noted to have worsening renal disease with acute kidney disease on stage IV chronic kidney disease had intermittent dialysis and was discharged to rehabilitation but while at rehabilitation had worsening renal function and readmitted for dialysis which may be permanent days and discussion. On admission patient was initially on steroids and this was stopped due to worsening azotemia. Other renal workup was obtained by coal bagger. Patient continues rehabilitation due to recent surgery..Pt denies fever, chills, CP, Palpitations, NVD, Trauma, tremors, or recent ill contacts. NO reported nursing events. - Patient Problems (1) acute kidney injury on stage IV chronic kidney disease Current Visit: Yes Status: Acute Plan to address problem: Nephrology consulted for dialysis noted, dialysis started after permacath placed strict I/O, monitor uop q shift, avoid nephrotoxic agents Outpatient followed by Dr. Young (2) Femur fracture, left Current Visit: No Status: Acute Qualifiers: Encounter type: initial encounter Femur location: intertrochanteric Fracture type: closed Plan to address problem: PT S/P ORIF, Physical therapy consulted, Pt discharged from inpatient Rehab, Case management consulted for D/C planning. (3) Alcoholic cirrhosis of liver Current Visit: No Status: Chronic Qualifiers: Ascites presence: without ascites Qualified Code(s): K70.30 - Alcoholic cirrhosis of liver without ascites Plan to address problem: supportive care, Extensive counseling provided to the patient who verbalized understanding (4) Cirrhosis Current Visit: No Status: Chronic Qualifiers: Hepatic cirrhosis type: alcoholic cirrhosis Ascites presence: without ascites Qualified Code(s): K70.30 - Alcoholic cirrhosis of liver without ascites Plan to address problem: supportive care, ETOH cessation counseling (5) hyperkalemia * Anticipate correction with dialysis (6)DVT prophylaxis Current Visit: No Status: Acute Plan to address problem: Heparin BID Plan of care discussed with the patient and also with nursing staff. History Interval history: Patient seen and examined currently undergoing dialysis with no new complaints today. Permacath was placed today successfully with no complications. Hospitalist Physical - Physical exam Narrative exam: VITAL SIGNS: Reviewed. GENERAL: The patient appeared well nourished and normally developed. Vital signs as documented. HEAD: No signs of head trauma. EYES: Pupils are equal. Extraocular motions intact. EARS: Hearing grossly intact. MOUTH: Oropharynx is normal. NECK: No adenopathy, no JVD. CHEST: Chest with clear breath sounds bilaterally. No wheezes, rales, or rhonchi. CARDIAC: Regular rate and rhythm. S1 and S2, without murmurs, gallops, or rubs. VASCULAR: No Edema. Peripheral pulses normal and equal in all extremities. ABDOMEN: Soft, without detectable tenderness. No sign of distention. No rebound or guarding, and no masses palpated. Bowel Sounds normal. MUSCULOSKELETAL: Good range of motion of all major joints except hip joints but shows status post hip replacement recently.. Extremities without clubbing, cyanosis or edema. NEUROLOGIC EXAM: Alert and oriented x 3. No focal sensory or strength deficits. Speech normal. Follows commands. PSYCHIATRIC: Mood normal. SKIN: No rash or lesions. - Constitutional Vitals: Temp Pulse Resp BP Pulse Ox 97.8 F 76 20 154/98 95 01/20/18 05:04 01/20/18 05:04 01/20/18 05:04 01/20/18 05:04 01/20/18 05:04 General appearance: Present: mild distress Results - Labs CBC & Chem 7: 01/20/18 07:48 01/20/18 07:48 Labs: Laboratory Last Values WBC 12.9 K/mm3 (4.5-11.0) H 01/20/18 07:48 RBC 3.05 M/mm3 (3.65-5.03) L 01/20/18 07:48 Hgb 9.0 gm/dl (11.8-15.2) L 01/20/18 07:48 Hct 28.3 % (35.5-45.6) L 01/20/18 07:48 MCV 93 fl (84-94) 01/20/18 07:48 MCH 30 pg (28-32) 01/20/18 07:48 MCHC 32 % (32-34) 01/20/18 07:48 RDW 17.7 % (13.2-15.2) H 01/20/18 07:48 Plt Count 178 K/mm3 (140-440) 01/20/18 07:48 Lymph % (Auto) 4.3 % (13.4-35.0) L 01/20/18 07:48 [place] % (Auto) 12.5 % (0.0-7.3) H 01/20/18 07:48 Eos % (Auto) 0.0 % (0.0-4.3) 01/20/18 07:48 Baso % (Auto) 0.6 % (0.0-1.8) 01/20/18 07:48 Lymph # 0.6 K/mm3 (1.2-5.4) L 01/20/18 07:48 [place] # 1.6 K/mm3 (0.0-0.8) H 01/20/18 07:48 Eos # 0.0 K/mm3 (0.0-0.4) 01/20/18 07:48 Baso # 0.1 K/mm3 (0.0-0.1) 01/20/18 07:48 Seg Neutrophils % 82.6 % (40.0-70.0) H 01/20/18 07:48 Seg Neutrophils # 10.7 K/mm3 (1.8-7.7) H 01/20/18 07:48 Sodium 136 mmol/L (137-145) L 01/20/18 07:48 Potassium 5.5 mmol/L (3.6-5.0) H 01/20/18 07:48 Chloride 98.8 mmol/L (98-107) 01/20/18 07:48 Carbon Dioxide 17 mmol/L (22-30) L 01/20/18 07:48 Anion Gap 26 mmol/L 01/20/18 07:48 BUN 128 mg/dL (9-20) H 01/20/18 07:48 Creatinine 4.1 mg/dL (0.8-1.5) H 01/20/18 07:48 Estimated GFR 18 ml/min 01/20/18 07:48 BUN/Creatinine Ratio 31 % 01/20/18 07:48 Glucose 189 mg/dL (75-100) H 01/20/18 07:48 Calcium 8.2 mg/dL (8.4-10.2) L 01/20/18 07:48 Total Bilirubin 0.60 mg/dL (0.1-1.2) 01/20/18 07:48 AST 17 units/L (5-40) 01/20/18 07:48 ALT 34 units/L (7-56) 01/20/18 07:48 Alkaline Phosphatase 221 units/L (35-129) H 01/20/18 07:48 Total Protein 5.6 g/dL (6.3-8.2) L 01/20/18 07:48 Albumin 3.2 g/dL (3.9-5) L 01/20/18 07:48 Albumin/Globulin Ratio 1.3 % 01/20/18 07:48
--- NOTE | 2018-01-20 09:19 | Operative Report ---
Operative Report Operative Report: Exam: Ultrasound and fluoroscopic guided placement of tunneled hemodialysis catheter Clinical indication: End-stage renal disease requiring dialysis access Date: 01/20/2018 Procedure: Following an expiration of the risks, benefits and alternatives; written informed consent was obtained. The patient was brought to the angiographic suite and placed in supine position on the examination table. Initial ultrasound evaluation of his right neck demonstrated a patent right internal jugular vein. The right neck and chest wall were prepped and draped in the usual sterile fashion. 1% lidocaine was used for anesthesia. Under ultrasound guidance, the right internal jugular vein was cannulated with a 7 cm 18-gauge needle. A 0.035 guidewire was advanced into the IVC under fluoroscopy to document intravenous positioning. The needle was removed. An appropriate catheter exit site was chosen along the lateral right chest wall. 1% lidocaine was used for anesthesia at the catheter exit site and along the tunnel tract. A Bard 23 cm glidepath tunneled hemodialysis catheter was then tunneled antegrade from the catheter exit site to the venotomy site. Following serial dilation over the guidewire under fluoroscopy, as 18 Lao peel-away sheath was placed over the guidewire under fluoroscopy and advance centrally. The trocar and guidewire were removed and the catheter advanced through the peel-away sheath to position the tip in the proximal right atrium. The peel-away sheath was removed. Both ports flushed and aspirated easily and were then locked with appropriate volumes of heparin. The venotomy site was closed using 4-0 Vicryl suture and Dermabond. 4-0 Vicryl suture and Dermabond was also used to approximate the catheter exit site. The patient tolerated the procedure well. There were no immediate post procedure competitions. Conscious sedation was performed under the guidance of radiologic nursing. Continuous cardiopulmonary monitoring was utilized. Patient: 1) Ultrasound and fluoroscopic guided placement of a Bard 23 cm glidepath tunneled hemodialysis catheter via the right internal jugular vein.
--- NOTE | 2018-01-20 09:51 | Progress Note ---
Assessment and Plan Impression: * HENRY on Stage IV chronic kidney disease - followed by Dr. Young * Hypertension * Gout * azotemia * s/p femur fracture * Anemia secondary to CKD Plan: * will need to initiate newborn hearing screener today * Rise in SCr noted UA unremarkable * stop steriods--azotemia is worse, follow up uric acid, place on low purine diet * Continue antiHTN medicaions * Encouraged po hydration * Avoid nephrotoxins * Dose medications for renal function * Epogen prn Subjective Date of service: 01/20/18 Principal diagnosis: henry Interval history: resting in bed today Objective - Exam Narrative Exam: General appearance: well-developed, well-nourished EENT: ATNC Respiratory: Present: Clear to Ascultation Cardiology: regular, S1S2 Gastrointestinal: normal, no tenderness, no distended Integumentary: no rash, warm and dry Neurologic: no focal deficit Musculoskeletal: other (no edema) Psychiatric: cooperativ - Vital Signs Vital signs: Vital Signs - 12hr 01/19/18 01/20/18 01/20/18 22:00 05:04 07:28 Temperature 98.5 F 97.8 F Pulse Rate 74 76 76 Respiratory 20 20 Rate Blood Pressure 154/98 139/89 Blood Pressure 154/103 [Right] O2 Sat by Pulse 94 95 97 Oximetry 01/20/18 07:30 Temperature 97.7 F Pulse Rate Respiratory Rate Blood Pressure Blood Pressure [Right] O2 Sat by Pulse Oximetry - Lab 01/20/18 07:48 01/20/18 07:48 Most recent lab results Calcium 8.2 mg/dL (8.4-10.2) L 01/20/18 07:48
[2018-01-20] MEDS ORDERED: COLCHICINE PO SCH ×2 (10:00→22:00)
[2018-01-20] MEDS ORDERED: LYCOPEN PO SCH (10:00)
[2018-01-20] MEDS ORDERED: [UNRECOGNIZED DRUG - OTHER] PO SCH (10:00)
[2018-01-20] MEDS ORDERED: MILK THISTLE 175 MG PO SCH (10:00)
[2018-01-20] MEDS: HEPARIN SUB-Q SCH ×2 (10:00→22:37)
[2018-01-20] MEDS ORDERED: NON-FORMULARY (Febuxostat [Uloric] 40 MG) PO SCH (10:00)
[2018-01-20] MEDS ORDERED: IRON 18 MG PO SCH (10:00)
[2018-01-20] MEDS ORDERED: MAGNESIUM 250 MG PO SCH (10:00)
[2018-01-20] MEDS ORDERED: NON-FORMULARY (Omeprazole [Omeprazole] 20 MG) PO SCH (10:00)
[2018-01-20] MEDS ORDERED: NON-FORMULARY (Atenolol 50 MG) PO SCH (10:00)
[2018-01-20] MEDS ORDERED: MULTIVIT MIN PO SCH (10:00)
[2018-01-20] MEDS ORDERED: LUTEIN PO SCH (10:00)
[2018-01-20] MEDS ORDERED: NON-FORMULARY (Travoprost [Travatan Z 0.004%] 2.5 ML) OP SCH (10:00)
[2018-01-20] MEDS ORDERED: NACL 0.9% 100 ML IV PRN (10:30)
[2018-01-20] MEDS ORDERED: NACL 0.9 (PRIMING MACHINE ONLY DIALYSIS) MC ONE (11:59)
[2018-01-20] MEDS: PROCRIT IV PRN (12:13)
[2018-01-20 14:30] LABS: Hematocrit 29.9 % (35.5-45.6); Hemoglobin 9.8 gm/dl (11.8-15.2); Mean Corpuscular HGB Conc 33 % (32-34); Mean Corpuscular Hemoglobin 30 pg (28-32); Mean Corpuscular Volume 91 fl (84-94); Platelet Count 170 K/mm3 (140-440); Red Blood Count 3.28 M/mm3 (3.65-5.03); Red Cell Distribution Width 17.4 % (13.2-15.2)
[2018-01-20] MEDS: THERAGRAN-M Tab PO SCH (14:58)
[2018-01-20] MEDS: TENORMIN PO SCH (14:58)
[2018-01-20] MEDS: FEOSOL PO SCH (14:59)
[2018-01-20] MEDS: NORVASC PO SCH (14:59)
[2018-01-20] MEDS: PEPCID PO SCH (14:59)
[2018-01-20 15:34] LABS: Basophils % (Manual) 0 % (0.0-1.8); Eosinophils % (Manual) 0 % (0.0-4.3); Macrocytosis 1+; Platelet Estimate Consistent w Auto; Total Cells Counted 100
[2018-01-20] MEDS: HumaLOG SUB-Q SCH ×4 (18:41→22:48)
[2018-01-20] MEDS: LATANOPROST 0.005% OU SCH (18:43)
[2018-01-20] MEDS: ULTRAM PO PRN (22:35)
[2018-01-20] MEDS: SODIUM CHLORIDE FLUSH SYRINGE 10 ML IV SCH ×2 (22:36)
[2018-01-20] MEDS: PROTONIX PO SCH (22:36)
[2018-01-20] MEDS: MAG-OX PO SCH (22:36)
--- NOTE | 2018-01-20 23:18 | XRay Report ---
FINAL REPORT PROCEDURE: Chest. TECHNIQUE: Chest radiograph anteroposterior view. CPT 27051 HISTORY: Leukocytosis. COMPARISON: No prior studies are available for comparison. FINDINGS: The heart size is normal. There is moderate tortuosity of the thoracic aorta. The lungs are grossly clear. There is blunting of the right costophrenic angle consistent with a moderate sized right pleural effusion. There is a tunneled right internal jugular venous dialysis type catheter that terminates in the right atrium. The regional skeleton appears intact. IMPRESSION: Moderately large right pleural effusion.
[2018-01-21] MEDS: NEURONTIN PO SCH ×3 (05:30→21:25)
[2018-01-21] MEDS: LASIX PO SCH (05:30)
[2018-01-21] MEDS: HumaLOG SUB-Q SCH ×4 (09:16→22:35)
[2018-01-21 09:38] LABS: Calcium 8.5 mg/dL (8.4-10.2)
--- NOTE | 2018-01-21 10:14 | Progress Note ---
Assessment and Plan Impression: * HENRY on Stage IV chronic kidney disease - followed by Dr. Young * Hypertension * Gout * azotemia * s/p femur fracture * Anemia secondary to CKD Plan: * initiated hd yesterday, plans on treatment today as well * uremia is better * stopped steriods--low purine diet * Continue antiHTN medicaions * Encouraged po hydration * Avoid nephrotoxins * Dose medications for renal function * Epogen prn Subjective Date of service: 01/21/18 Principal diagnosis: henry Interval history: resting in bed today Objective - Exam Narrative Exam: General appearance: well-developed, well-nourished EENT: ATNC Respiratory: Present: Clear to Ascultation Cardiology: regular, S1S2 Gastrointestinal: normal, no tenderness, no distended Integumentary: no rash, warm and dry Neurologic: no focal deficit Musculoskeletal: other (no edema) Psychiatric: cooperativ - Vital Signs Vital signs: Vital Signs - 12hr 01/20/18 01/20/18 01/21/18 23:12 23:13 04:33 Temperature 98.1 F 98.7 F Pulse Rate 81 78 75 Respiratory 20 18 Rate Blood Pressure 142/88 134/93 Blood Pressure [Right] O2 Sat by Pulse 97 97 98 Oximetry 01/21/18 08:00 Temperature 98.2 F Pulse Rate 74 Respiratory 18 Rate Blood Pressure Blood Pressure 145/91 [Right] O2 Sat by Pulse 98 Oximetry - Lab 01/20/18 14:15 01/21/18 08:30 Most recent lab results Calcium 8.5 mg/dL (8.4-10.2) 01/21/18 08:30
[2018-01-21] MEDS: NORVASC PO SCH (10:24)
[2018-01-21] MEDS: FEOSOL PO SCH (10:24)
[2018-01-21] MEDS: THERAGRAN-M Tab PO SCH (10:24)
[2018-01-21] MEDS: TENORMIN PO SCH (10:24)
[2018-01-21] MEDS: PROTONIX PO SCH (10:24)
[2018-01-21] MEDS: PEPCID PO SCH (10:24)
[2018-01-21] MEDS: ULORIC PO SCH (10:25)
[2018-01-21] MEDS: HEPARIN SUB-Q SCH ×2 (10:27→21:24)
[2018-01-21] MEDS: SODIUM CHLORIDE FLUSH SYRINGE 10 ML IV SCH ×2 (13:13→21:26)
[2018-01-21] MEDS: MAG-OX PO SCH (13:13)
--- NOTE | 2018-01-21 13:34 | Progress Note ---
Assessment and Plan Assessment and plan: 62 YO Male with HTN, ESRD, Cirrhosis, ETOH Abuse, Gout admitted directly after discharged by Ortho Surgery service and underwent a left hip replacement surgery. While in the hospital was noted to have worsening renal disease with acute kidney disease on stage IV chronic kidney disease had intermittent dialysis and was discharged to rehabilitation but while at rehabilitation had worsening renal function and readmitted for dialysis which may be permanent days and discussion. On admission patient was initially on steroids and this was stopped due to worsening azotemia. Other renal workup was obtained by program management analyst. Patient continues rehabilitation due to recent surgery..Pt denies fever, chills, CP, Palpitations, NVD, Trauma, tremors, or recent ill contacts. NO reported nursing events. - Patient Problems (1) acute kidney injury on stage IV chronic kidney disease Current Visit: Yes Status: Acute Plan to address problem: Nephrology consulted for dialysis noted, dialysis started after permacath placed strict I/O, monitor uop q shift, avoid nephrotoxic agents Outpatient followed by Dr. Young Discussed with case management [facility]. (2) Femur fracture, left Current Visit: No Status: Acute Qualifiers: Encounter type: initial encounter Femur location: intertrochanteric Fracture type: closed Plan to address problem: PT S/P ORIF, Physical therapy consulted, Pt discharged from inpatient Rehab, Case management consulted for D/C planning. (3) Alcoholic cirrhosis of liver Current Visit: No Status: Chronic Qualifiers: Ascites presence: without ascites Qualified Code(s): K70.30 - Alcoholic cirrhosis of liver without ascites Plan to address problem: supportive care, Extensive counseling provided to the patient who verbalized understanding (4) Cirrhosis Current Visit: No Status: Chronic Qualifiers: Hepatic cirrhosis type: alcoholic cirrhosis Ascites presence: without ascites Qualified Code(s): K70.30 - Alcoholic cirrhosis of liver without ascites Plan to address problem: supportive care, ETOH cessation counseling (5) hyperkalemia * Resolved. (6)DVT prophylaxis Current Visit: No Status: Acute Plan to address problem: Heparin BID Plan of care discussed with the patient and also with nursing staff. History Interval history: Patient seen and examined . No new complaints and no new adverse event reported to me by nursing staff. Hospitalist Physical - Physical exam Narrative exam: VITAL SIGNS: Reviewed. GENERAL: The patient appeared well nourished and normally developed. Vital signs as documented. HEAD: No signs of head trauma. EYES: Pupils are equal. Extraocular motions intact. EARS: Hearing grossly intact. MOUTH: Oropharynx is normal. NECK: No adenopathy, no JVD. CHEST: Chest with clear breath sounds bilaterally. No wheezes, rales, or rhonchi. CARDIAC: Regular rate and rhythm. S1 and S2, without murmurs, gallops, or rubs. VASCULAR: No Edema. Peripheral pulses normal and equal in all extremities. ABDOMEN: Soft, without detectable tenderness. No sign of distention. No rebound or guarding, and no masses palpated. Bowel Sounds normal. MUSCULOSKELETAL: Good range of motion of all major joints except hip joints but shows status post hip replacement recently.. Extremities without clubbing, cyanosis or edema. NEUROLOGIC EXAM: Alert and oriented x 3. No focal sensory or strength deficits. Speech normal. Follows commands. PSYCHIATRIC: Mood normal. SKIN: No rash or lesions. - Constitutional Vitals: Temp Pulse Resp BP Pulse Ox 98.2 F 74 18 145/91 98 01/21/18 08:00 01/21/18 08:00 01/21/18 08:00 01/21/18 08:00 01/21/18 08:00 General appearance: Present: mild distress Results - Labs CBC & Chem 7: 01/20/18 14:15 01/21/18 08:30 Labs: Laboratory Last Values WBC 12.9 K/mm3 (4.5-11.0) H 01/20/18 14:15 RBC 3.28 M/mm3 (3.65-5.03) L 01/20/18 14:15 Hgb 9.8 gm/dl (11.8-15.2) L 01/20/18 14:15 Hct 29.9 % (35.5-45.6) L 01/20/18 14:15 MCV 91 fl (84-94) 01/20/18 14:15 MCH 30 pg (28-32) 01/20/18 14:15 MCHC 33 % (32-34) 01/20/18 14:15 RDW 17.4 % (13.2-15.2) H 01/20/18 14:15 Plt Count 170 K/mm3 (140-440) 01/20/18 14:15 Lymph % (Auto) 4.3 % (13.4-35.0) L 01/20/18 07:48 [place] % (Auto) 12.5 % (0.0-7.3) H 01/20/18 07:48 Eos % (Auto) 0.0 % (0.0-4.3) 01/20/18 07:48 Baso % (Auto) 0.6 % (0.0-1.8) 01/20/18 07:48 Lymph # 0.6 K/mm3 (1.2-5.4) L 01/20/18 07:48 [place] # 1.6 K/mm3 (0.0-0.8) H 01/20/18 07:48 Eos # 0.0 K/mm3 (0.0-0.4) 01/20/18 07:48 Baso # 0.1 K/mm3 (0.0-0.1) 01/20/18 07:48 Add Manual Diff Complete 01/20/18 14:15 Total Counted 100 01/20/18 14:15 Seg Neutrophils % 82.6 % (40.0-70.0) H 01/20/18 07:48 Seg Neuts % (Manual) 82.0 % (40.0-70.0) H 01/20/18 14:15 Band Neutrophils % 0 % 01/20/18 14:15 Lymphocytes % (Manual) 9.0 % (13.4-35.0) L 01/20/18 14:15 Reactive Lymphs % (Man) 0 % 01/20/18 14:15 Monocytes % (Manual) 9.0 % (0.0-7.3) H 01/20/18 14:15 Eosinophils % (Manual) 0 % (0.0-4.3) 01/20/18 14:15 Basophils % (Manual) 0 % (0.0-1.8) 01/20/18 14:15 Metamyelocytes % 0 % 01/20/18 14:15 Myelocytes % 0 % 01/20/18 14:15 Promyelocytes % 0 % 01/20/18 14:15 Blast Cells % 0 % 01/20/18 14:15 Nucleated RBC % Not Reportable 01/20/18 14:15 Seg Neutrophils # 10.7 K/mm3 (1.8-7.7) H 01/20/18 07:48 Seg Neutrophils # Man 10.6 K/mm3 (1.8-7.7) H 01/20/18 14:15 Band Neutrophils # 0.0 K/mm3 01/20/18 14:15 Lymphocytes # (Manual) 1.2 K/mm3 (1.2-5.4) 01/20/18 14:15 Abs React Lymphs (Man) 0.0 K/mm3 01/20/18 14:15 Monocytes # (Manual) 1.2 K/mm3 (0.0-0.8) H 01/20/18 14:15 Eosinophils # (Manual) 0.0 K/mm3 (0.0-0.4) 01/20/18 14:15 Basophils # (Manual) 0.0 K/mm3 (0.0-0.1) 01/20/18 14:15 Metamyelocytes # 0.0 K/mm3 01/20/18 14:15 Myelocytes # 0.0 K/mm3 01/20/18 14:15 Promyelocytes # 0.0 K/mm3 01/20/18 14:15 Blast Cells # 0.0 K/mm3 01/20/18 14:15 WBC Morphology Not Reportable 01/20/18 14:15 Hypersegmented Neuts Not Reportable 01/20/18 14:15 Hyposegmented Neuts Not Reportable 01/20/18 14:15 Hypogranular Neuts Not Reportable 01/20/18 14:15 Smudge Cells Not Reportable 01/20/18 14:15 Toxic Granulation Not Reportable 01/20/18 14:15 Toxic Vacuolation Not Reportable 01/20/18 14:15 Dohle Bodies Not Reportable 01/20/18 14:15 Pelger-Huet Anomaly Not Reportable 01/20/18 14:15 Caitlin Rods Not Reportable 01/20/18 14:15 Platelet Estimate Consistent w auto 01/20/18 14:15 Clumped Platelets Not Reportable 01/20/18 14:15 Plt Clumps, EDTA Not Reportable 01/20/18 14:15 Large Platelets Not Reportable 01/20/18 14:15 Giant Platelets Not Reportable 01/20/18 14:15 Platelet Satelliting Not Reportable 01/20/18 14:15 Plt Morphology Comment Not Reportable 01/20/18 14:15 RBC Morphology Not Reportable 01/20/18 14:15 Dimorphic RBCs Not Reportable 01/20/18 14:15 Polychromasia Few 01/20/18 14:15 Hypochromasia Not Reportable 01/20/18 14:15 Poikilocytosis Not Reportable 01/20/18 14:15 Anisocytosis Not Reportable 01/20/18 14:15 Microcytosis Not Reportable 01/20/18 14:15 Macrocytosis 1+ 01/20/18 14:15 Spherocytes Not Reportable 01/20/18 14:15 Pappenheimer Bodies Not Reportable 01/20/18 14:15 Sickle Cells Not Reportable 01/20/18 14:15 Target Cells Not Reportable 01/20/18 14:15 Tear Drop Cells Not Reportable 01/20/18 14:15 Ovalocytes Not Reportable 01/20/18 14:15 Helmet Cells Not Reportable 01/20/18 14:15 [place] Bodies Not Reportable 01/20/18 14:15 [place] Rings Not Reportable 01/20/18 14:15 [place] Cells Not Reportable 01/20/18 14:15 Bite Cells Not Reportable 01/20/18 14:15 Crenated Cell Not Reportable 01/20/18 14:15 Elliptocytes Not Reportable 01/20/18 14:15 Acanthocytes (Spur) Not Reportable 01/20/18 14:15 Rouleaux Not Reportable 01/20/18 14:15 Hemoglobin C Crystals Not Reportable 01/20/18 14:15 Schistocytes Not Reportable 01/20/18 14:15 Malaria parasites Not Reportable 01/20/18 14:15 [place] Bodies Not Reportable 01/20/18 14:15 Hem Pathologist Commnt No 01/20/18 14:15 Sodium 140 mmol/L (137-145) 01/21/18 08:30 Potassium 4.6 mmol/L (3.6-5.0) 01/21/18 08:30 Chloride 101.4 mmol/L (98-107) 01/21/18 08:30 Carbon Dioxide 21 mmol/L (22-30) L 01/21/18 08:30 Anion Gap 22 mmol/L 01/21/18 08:30 BUN 88 mg/dL (9-20) H 01/21/18 08:30 Creatinine 3.4 mg/dL (0.8-1.5) H 01/21/18 08:30 Estimated GFR 22 ml/min 01/21/18 08:30 BUN/Creatinine Ratio 26 % 01/21/18 08:30 Glucose 157 mg/dL (75-100) H 01/21/18 08:30 POC Glucose 168 (70-105) H 01/21/18 08:07 Calcium 8.5 mg/dL (8.4-10.2) 01/21/18 08:30 Total Bilirubin 0.60 mg/dL (0.1-1.2) 01/20/18 07:48 AST 17 units/L (5-40) 01/20/18 07:48 ALT 34 units/L (7-56) 01/20/18 07:48 Alkaline Phosphatase 221 units/L (35-129) H 01/20/18 07:48 Total Protein 5.6 g/dL (6.3-8.2) L 01/20/18 07:48 Albumin 3.2 g/dL (3.9-5) L 01/20/18 07:48 Albumin/Globulin Ratio 1.3 % 01/20/18 07:48
[2018-01-21] MEDS: LATANOPROST 0.005% OU SCH (17:25)
[2018-01-21] MEDS ORDERED: NACL 0.9 (PRIMING MACHINE ONLY DIALYSIS) MC ONE (17:47)
[2018-01-21 17:53] LABS: Bilirubin,Urine NEG (Negative); Blood,Urine NEG (Negative); Color,Urine Yellow (Yellow); Hyaline Casts,Urine 1 /LPF; Urobilinogen,Urine < 2.0 mg/dL (<2.0); WBC,Urine < 1.0 /HPF (0.0-6.0)
[2018-01-21 17:56] LABS: RBC,Urine < 1.0 /HPF (0.0-6.0)
[2018-01-21] MEDS: ULTRAM PO PRN (23:02)
[2018-01-22 05:42] LABS: Hemoglobin 9.1 gm/dl (11.8-15.2); Mean Corpuscular HGB Conc 33 % (32-34); Mean Corpuscular Hemoglobin 30 pg (28-32); Mean Corpuscular Volume 92 fl (84-94); Platelet Count 122 K/mm3 (140-440); Red Blood Count 3.05 M/mm3 (3.65-5.03); Red Cell Distribution Width 18.1 % (13.2-15.2)
[2018-01-22 06:10] LABS: Calcium 8.4 mg/dL (8.4-10.2)
[2018-01-22] MEDS: LASIX PO SCH (06:46)
[2018-01-22] MEDS: NEURONTIN PO SCH ×3 (06:47→22:01)
[2018-01-22] MEDS: HumaLOG SUB-Q SCH ×3 (08:05→16:30)
[2018-01-22] MEDS: HEPARIN SUB-Q SCH ×2 (10:13→22:02)
[2018-01-22] MEDS: PEPCID PO SCH (10:15)
[2018-01-22] MEDS: THERAGRAN-M Tab PO SCH (10:15)
[2018-01-22] MEDS: NORVASC PO SCH (10:15)
[2018-01-22] MEDS: FEOSOL PO SCH (10:15)
[2018-01-22] MEDS: PROTONIX PO SCH (10:15)
[2018-01-22] MEDS: MAG-OX PO SCH (10:16)
[2018-01-22] MEDS: TENORMIN PO SCH (10:16)
[2018-01-22] MEDS: ULORIC PO SCH (10:16)
[2018-01-22] MEDS: COLCHICINE PO SCH (10:16)
[2018-01-22] MEDS: SODIUM CHLORIDE FLUSH SYRINGE 10 ML IV SCH ×2 (10:30→22:06)
[2018-01-22] MEDS: ULTRAM PO PRN (10:32)
--- NOTE | 2018-01-22 13:16 | Progress Note ---
Assessment and Plan Impression: * HENRY on Stage IV chronic kidney disease - followed by Dr. Young * Hypertension * Gout * azotemia * s/p femur fracture * Anemia secondary to CKD Plan: * initiated hd, plans on treatment today as well * uremia is better * will follow off HD over the weekend to monitor recovery * stopped steriods--low purine diet * Continue antiHTN medicaions * Encouraged po hydration * Avoid nephrotoxins * Dose medications for renal function * Epogen prn Subjective Date of service: 01/22/18 Principal diagnosis: henry Interval history: resting in bed today Objective - Exam Narrative Exam: General appearance: well-developed, well-nourished EENT: ATNC Respiratory: Present: Clear to Ascultation Cardiology: regular, S1S2 Gastrointestinal: normal, no tenderness, no distended Integumentary: no rash, warm and dry Neurologic: no focal deficit Musculoskeletal: other (no edema) Psychiatric: cooperativ - Vital Signs Vital signs: Vital Signs - 12hr 01/22/18 01/22/18 04:20 07:40 Temperature 98.7 F 98.6 F Pulse Rate 83 84 Respiratory 20 18 Rate Blood Pressure 138/83 133/83 O2 Sat by Pulse 97 99 Oximetry - Lab 01/22/18 05:15 01/22/18 05:15 Most recent lab results Calcium 8.4 mg/dL (8.4-10.2) 01/22/18 05:15
[2018-01-22] MEDS: PROCRIT IV PRN (16:01)
--- NOTE | 2018-01-22 16:22 | Progress Note ---
Assessment and Plan Assessment and plan: 62 YO Male with HTN, ESRD, Cirrhosis, ETOH Abuse, Gout admitted directly after discharged by Ortho Surgery service and underwent a left hip replacement surgery. While in the hospital was noted to have worsening renal disease with acute kidney disease on stage IV chronic kidney disease had intermittent dialysis and was discharged to rehabilitation but while at rehabilitation had worsening renal function and readmitted for dialysis which may be permanent days and discussion. On admission patient was initially on steroids and this was stopped due to worsening azotemia. Other renal workup was obtained by machinery cleaner. Patient continues rehabilitation due to recent surgery..Pt denies fever, chills, CP, Palpitations, NVD, Trauma, tremors, or recent ill contacts. NO reported nursing events. - Patient Problems (1) acute kidney injury on stage IV chronic kidney disease Current Visit: Yes Status: Acute Plan to address problem: Nephrology consulted for dialysis noted, dialysis started after permacath placed strict I/O, monitor uop q shift, avoid nephrotoxic agents Nephrology plans to monitor over the weekend off dialysis to see Fredis triana Outpatient followed by Dr. Young Discussed with case management [facility]. (2) Femur fracture, left Current Visit: No Status: Acute Qualifiers: Encounter type: initial encounter Femur location: intertrochanteric Fracture type: closed Plan to address problem: PT S/P ORIF, Physical therapy consulted, Pt discharged from inpatient Rehab, Case management consulted for D/C planning. (3) Alcoholic cirrhosis of liver Current Visit: No Status: Chronic Qualifiers: Ascites presence: without ascites Qualified Code(s): K70.30 - Alcoholic cirrhosis of liver without ascites Plan to address problem: supportive care, Extensive counseling provided to the patient who verbalized understanding (4) Cirrhosis Current Visit: No Status: Chronic Qualifiers: Hepatic cirrhosis type: alcoholic cirrhosis Ascites presence: without ascites Qualified Code(s): K70.30 - Alcoholic cirrhosis of liver without ascites Plan to address problem: supportive care, ETOH cessation counseling (5) hyperkalemia * Resolved. (6)DVT prophylaxis Current Visit: No Status: Acute Plan to address problem: Heparin BID Plan of care discussed with the patient and also with nursing staff. History Interval history: Patient seen and examined . No new complaints and no new adverse event reported to me by nursing staff. Spouse at Bedside Hospitalist Physical - Physical exam Narrative exam: VITAL SIGNS: Reviewed. GENERAL: The patient appeared well nourished and normally developed. Vital signs as documented. HEAD: No signs of head trauma. EYES: Pupils are equal. Extraocular motions intact. EARS: Hearing grossly intact. MOUTH: Oropharynx is normal. NECK: No adenopathy, no JVD. CHEST: Chest with clear breath sounds bilaterally. No wheezes, rales, or rhonchi. CARDIAC: Regular rate and rhythm. S1 and S2, without murmurs, gallops, or rubs. VASCULAR: No Edema. Peripheral pulses normal and equal in all extremities. ABDOMEN: Soft, without detectable tenderness. No sign of distention. No rebound or guarding, and no masses palpated. Bowel Sounds normal. MUSCULOSKELETAL: Good range of motion of all major joints except hip joints but shows status post hip replacement recently.. Extremities without clubbing, cyanosis or edema. NEUROLOGIC EXAM: Alert and oriented x 3. No focal sensory or strength deficits. Speech normal. Follows commands. PSYCHIATRIC: Mood normal. SKIN: No rash or lesions. - Constitutional Vitals: Temp Pulse Resp BP Pulse Ox 98.7 F 83 18 161/108 99 01/22/18 13:45 01/22/18 15:15 01/22/18 13:45 01/22/18 15:15 01/22/18 12:00 General appearance: Present: mild distress Results - Labs CBC & Chem 7: 01/22/18 05:15 01/22/18 05:15 Labs: Laboratory Last Values WBC 9.8 K/mm3 (4.5-11.0) 01/22/18 05:15 RBC 3.05 M/mm3 (3.65-5.03) L 01/22/18 05:15 Hgb 9.1 gm/dl (11.8-15.2) L 01/22/18 05:15 Hct 28.0 % (35.5-45.6) L 01/22/18 05:15 MCV 92 fl (84-94) 01/22/18 05:15 MCH 30 pg (28-32) 01/22/18 05:15 MCHC 33 % (32-34) 01/22/18 05:15 RDW 18.1 % (13.2-15.2) H 01/22/18 05:15 Plt Count 122 K/mm3 (140-440) L 01/22/18 05:15 Lymph % (Auto) 4.3 % (13.4-35.0) L 01/20/18 07:48 [place] % (Auto) 12.5 % (0.0-7.3) H 01/20/18 07:48 Eos % (Auto) 0.0 % (0.0-4.3) 01/20/18 07:48 Baso % (Auto) 0.6 % (0.0-1.8) 01/20/18 07:48 Lymph # 0.6 K/mm3 (1.2-5.4) L 01/20/18 07:48 [place] # 1.6 K/mm3 (0.0-0.8) H 01/20/18 07:48 Eos # 0.0 K/mm3 (0.0-0.4) 01/20/18 07:48 Baso # 0.1 K/mm3 (0.0-0.1) 01/20/18 07:48 Add Manual Diff Complete 01/20/18 14:15 Total Counted 100 01/20/18 14:15 Seg Neutrophils % 82.6 % (40.0-70.0) H 01/20/18 07:48 Seg Neuts % (Manual) 82.0 % (40.0-70.0) H 01/20/18 14:15 Band Neutrophils % 0 % 01/20/18 14:15 Lymphocytes % (Manual) 9.0 % (13.4-35.0) L 01/20/18 14:15 Reactive Lymphs % (Man) 0 % 01/20/18 14:15 Monocytes % (Manual) 9.0 % (0.0-7.3) H 01/20/18 14:15 Eosinophils % (Manual) 0 % (0.0-4.3) 01/20/18 14:15 Basophils % (Manual) 0 % (0.0-1.8) 01/20/18 14:15 Metamyelocytes % 0 % 01/20/18 14:15 Myelocytes % 0 % 01/20/18 14:15 Promyelocytes % 0 % 01/20/18 14:15 Blast Cells % 0 % 01/20/18 14:15 Nucleated RBC % Not Reportable 01/20/18 14:15 Seg Neutrophils # 10.7 K/mm3 (1.8-7.7) H 01/20/18 07:48 Seg Neutrophils # Man 10.6 K/mm3 (1.8-7.7) H 01/20/18 14:15 Band Neutrophils # 0.0 K/mm3 01/20/18 14:15 Lymphocytes # (Manual) 1.2 K/mm3 (1.2-5.4) 01/20/18 14:15 Abs React Lymphs (Man) 0.0 K/mm3 01/20/18 14:15 Monocytes # (Manual) 1.2 K/mm3 (0.0-0.8) H 01/20/18 14:15 Eosinophils # (Manual) 0.0 K/mm3 (0.0-0.4) 01/20/18 14:15 Basophils # (Manual) 0.0 K/mm3 (0.0-0.1) 01/20/18 14:15 Metamyelocytes # 0.0 K/mm3 01/20/18 14:15 Myelocytes # 0.0 K/mm3 01/20/18 14:15 Promyelocytes # 0.0 K/mm3 01/20/18 14:15 Blast Cells # 0.0 K/mm3 01/20/18 14:15 WBC Morphology Not Reportable 01/20/18 14:15 Hypersegmented Neuts Not Reportable 01/20/18 14:15 Hyposegmented Neuts Not Reportable 01/20/18 14:15 Hypogranular Neuts Not Reportable 01/20/18 14:15 Smudge Cells Not Reportable 01/20/18 14:15 Toxic Granulation Not Reportable 01/20/18 14:15 Toxic Vacuolation Not Reportable 01/20/18 14:15 Dohle Bodies Not Reportable 01/20/18 14:15 Pelger-Huet Anomaly Not Reportable 01/20/18 14:15 Caitlin Rods Not Reportable 01/20/18 14:15 Platelet Estimate Consistent w auto 01/20/18 14:15 Clumped Platelets Not Reportable 01/20/18 14:15 Plt Clumps, EDTA Not Reportable 01/20/18 14:15 Large Platelets Not Reportable 01/20/18 14:15 Giant Platelets Not Reportable 01/20/18 14:15 Platelet Satelliting Not Reportable 01/20/18 14:15 Plt Morphology Comment Not Reportable 01/20/18 14:15 RBC Morphology Not Reportable 01/20/18 14:15 Dimorphic RBCs Not Reportable 01/20/18 14:15 Polychromasia Few 01/20/18 14:15 Hypochromasia Not Reportable 01/20/18 14:15 Poikilocytosis Not Reportable 01/20/18 14:15 Anisocytosis Not Reportable 01/20/18 14:15 Microcytosis Not Reportable 01/20/18 14:15 Macrocytosis 1+ 01/20/18 14:15 Spherocytes Not Reportable 01/20/18 14:15 Pappenheimer Bodies Not Reportable 01/20/18 14:15 Sickle Cells Not Reportable 01/20/18 14:15 Target Cells Not Reportable 01/20/18 14:15 Tear Drop Cells Not Reportable 01/20/18 14:15 Ovalocytes Not Reportable 01/20/18 14:15 Helmet Cells Not Reportable 01/20/18 14:15 [place] Bodies Not Reportable 01/20/18 14:15 [place] Rings Not Reportable 01/20/18 14:15 Sil Cells Not Reportable 01/20/18 14:15 Bite Cells Not Reportable 01/20/18 14:15 Crenated Cell Not Reportable 01/20/18 14:15 Elliptocytes Not Reportable 01/20/18 14:15 Acanthocytes (Spur) Not Reportable 01/20/18 14:15 Rouleaux Not Reportable 01/20/18 14:15 Hemoglobin C Crystals Not Reportable 01/20/18 14:15 Schistocytes Not Reportable 01/20/18 14:15 Malaria parasites Not Reportable 01/20/18 14:15 Trent Bodies Not Reportable 01/20/18 14:15 Hem Pathologist Commnt No 01/20/18 14:15 Sodium 140 mmol/L (137-145) 01/22/18 05:15 Potassium 4.3 mmol/L (3.6-5.0) 01/22/18 05:15 Chloride 101.7 mmol/L (98-107) 01/22/18 05:15 Carbon Dioxide 24 mmol/L (22-30) 01/22/18 05:15 Anion Gap 19 mmol/L 01/22/18 05:15 BUN 62 mg/dL (9-20) H 01/22/18 05:15 Creatinine 3.0 mg/dL (0.8-1.5) H 01/22/18 05:15 Estimated GFR 26 ml/min 01/22/18 05:15 BUN/Creatinine Ratio 21 % 01/22/18 05:15 Glucose 154 mg/dL (75-100) H 01/22/18 05:15 POC Glucose 181 (70-105) H 01/22/18 11:36 Calcium 8.4 mg/dL (8.4-10.2) 01/22/18 05:15 Total Bilirubin 0.60 mg/dL (0.1-1.2) 01/20/18 07:48 AST 17 units/L (5-40) 01/20/18 07:48 ALT 34 units/L (7-56) 01/20/18 07:48 Alkaline Phosphatase 221 units/L (35-129) H 01/20/18 07:48 Total Protein 5.6 g/dL (6.3-8.2) L 01/20/18 07:48 Albumin 3.2 g/dL (3.9-5) L 01/20/18 07:48 Albumin/Globulin Ratio 1.3 % 01/20/18 07:48 Urine Color Yellow (Yellow) 01/21/18 Unknown Urine Turbidity Clear (Clear) 01/21/18 Unknown Urine pH 5.0 (5.0-7.0) 01/21/18 Unknown Ur Specific [place] 1.009 (1.003-1.030) 01/21/18 Unknown Urine Protein 100 mg/dl mg/dL (Negative) 01/21/18 Unknown Urine Glucose (UA) 50 mg/dL (Negative) 01/21/18 Unknown Urine Ketones Neg mg/dL (Negative) 01/21/18 Unknown Urine Blood Neg (Negative) 01/21/18 Unknown Urine Nitrite Neg (Negative) 01/21/18 Unknown Urine Bilirubin Neg (Negative) 01/21/18 Unknown Urine Urobilinogen < 2.0 mg/dL (<2.0) 01/21/18 Unknown Ur Leukocyte Esterase Neg (Negative) 01/21/18 Unknown Urine WBC (Auto) < 1.0 /HPF (0.0-6.0) 01/21/18 Unknown Urine RBC (Auto) < 1.0 /HPF (0.0-6.0) 01/21/18 Unknown U Epithel Cells (Auto) < 1.0 /HPF (0-13.0) 01/21/18 Unknown Hyaline Casts 1 /LPF 01/21/18 Unknown
[2018-01-23] MEDS: HumaLOG SUB-Q SCH ×5 (00:24→23:29)
[2018-01-23] MEDS: LASIX PO SCH (07:59)
[2018-01-23] MEDS: NEURONTIN PO SCH ×3 (07:59→23:23)
[2018-01-23] MEDS: THERAGRAN-M Tab PO SCH (09:37)
[2018-01-23] MEDS: PEPCID PO SCH (09:37)
[2018-01-23] MEDS: FEOSOL PO SCH (09:37)
[2018-01-23] MEDS: TENORMIN PO SCH (09:37)
[2018-01-23] MEDS: MAG-OX PO SCH (09:37)
[2018-01-23] MEDS: ULORIC PO SCH (09:38)
[2018-01-23] MEDS: HEPARIN SUB-Q SCH ×2 (09:38→23:23)
[2018-01-23] MEDS: NORVASC PO SCH (09:38)
[2018-01-23] MEDS: PROTONIX PO SCH (09:38)
[2018-01-23] MEDS: ULTRAM PO PRN (09:50)
--- NOTE | 2018-01-23 11:07 | Progress Note ---
Assessment and Plan Assessment and plan: 62 YO Male with HTN, ESRD, Cirrhosis, ETOH Abuse, Gout admitted directly after discharged by Ortho Surgery service and underwent a left hip replacement surgery. While in the hospital was noted to have worsening renal disease with acute kidney disease on stage IV chronic kidney disease had intermittent dialysis and was discharged to rehabilitation but while at rehabilitation had worsening renal function and readmitted for dialysis which may be permanent days and discussion. On admission patient was initially on steroids and this was stopped due to worsening azotemia. Other renal workup was obtained by radiology transcriptionist. Patient continues rehabilitation due to recent surgery..Pt denies fever, chills, CP, Palpitations, NVD, Trauma, tremors, or recent ill contacts. NO reported nursing events. - Patient Problems (1) acute kidney injury on stage IV chronic kidney disease Current Visit: Yes Status: Acute Plan to address problem: Nephrology consulted for dialysis noted, dialysis started after permacath placed strict I/O, monitor uop q shift, avoid nephrotoxic agents Nephrology plans to monitor over the weekend off dialysis to see if improvement Outpatient followed by Dr. Young Discussed with case management [facility]. (2) Femur fracture, left Current Visit: No Status: Acute Qualifiers: Encounter type: initial encounter Femur location: intertrochanteric Fracture type: closed Plan to address problem: PT S/P ORIF, Physical therapy consulted, Pt discharged from inpatient Rehab, Case management consulted for D/C planning. (3) Alcoholic cirrhosis of liver Current Visit: No Status: Chronic Qualifiers: Ascites presence: without ascites Qualified Code(s): K70.30 - Alcoholic cirrhosis of liver without ascites Plan to address problem: supportive care, Extensive counseling provided to the patient who verbalized understanding (4) Cirrhosis Current Visit: No Status: Chronic Qualifiers: Hepatic cirrhosis type: alcoholic cirrhosis Ascites presence: without ascites Qualified Code(s): K70.30 - Alcoholic cirrhosis of liver without ascites Plan to address problem: supportive care, ETOH cessation counseling (5) hyperkalemia * Resolved. (6)DVT prophylaxis Current Visit: No Status: Acute Plan to address problem: Heparin BID Plan of care discussed with the patient and also with nursing staff. History Interval history: Patient seen and examined . No new complaints and no new adverse event reported to me by nursing staff. Spouse at Bedside Hospitalist Physical - Physical exam Narrative exam: VITAL SIGNS: Reviewed. GENERAL: The patient appeared well nourished and normally developed. Vital signs as documented. HEAD: No signs of head trauma. EYES: Pupils are equal. Extraocular motions intact. EARS: Hearing grossly intact. MOUTH: Oropharynx is normal. NECK: No adenopathy, no JVD. CHEST: Chest with clear breath sounds bilaterally. No wheezes, rales, or rhonchi. CARDIAC: Regular rate and rhythm. S1 and S2, without murmurs, gallops, or rubs. VASCULAR: No Edema. Peripheral pulses normal and equal in all extremities. ABDOMEN: Soft, without detectable tenderness. No sign of distention. No rebound or guarding, and no masses palpated. Bowel Sounds normal. MUSCULOSKELETAL: Good range of motion of all major joints except hip joints but shows status post hip replacement recently.. Extremities without clubbing, cyanosis or edema. NEUROLOGIC EXAM: Alert and oriented x 3. No focal sensory or strength deficits. Speech normal. Follows commands. PSYCHIATRIC: Mood normal. SKIN: No rash or lesions. - Constitutional Vitals: Temp Pulse Resp BP Pulse Ox 98.8 F 95 H 20 167/98 99 01/23/18 06:56 01/23/18 09:38 01/23/18 06:56 01/23/18 09:38 01/23/18 06:56 General appearance: Present: mild distress Results - Labs CBC & Chem 7: 01/22/18 05:15 01/22/18 05:15 Labs: Laboratory Last Values WBC 9.8 K/mm3 (4.5-11.0) 01/22/18 05:15 RBC 3.05 M/mm3 (3.65-5.03) L 01/22/18 05:15 Hgb 9.1 gm/dl (11.8-15.2) L 01/22/18 05:15 Hct 28.0 % (35.5-45.6) L 01/22/18 05:15 MCV 92 fl (84-94) 01/22/18 05:15 MCH 30 pg (28-32) 01/22/18 05:15 MCHC 33 % (32-34) 01/22/18 05:15 RDW 18.1 % (13.2-15.2) H 01/22/18 05:15 Plt Count 122 K/mm3 (140-440) L 01/22/18 05:15 Lymph % (Auto) 4.3 % (13.4-35.0) L 01/20/18 07:48 [place] % (Auto) 12.5 % (0.0-7.3) H 01/20/18 07:48 Eos % (Auto) 0.0 % (0.0-4.3) 01/20/18 07:48 Baso % (Auto) 0.6 % (0.0-1.8) 01/20/18 07:48 Lymph # 0.6 K/mm3 (1.2-5.4) L 01/20/18 07:48 [place] # 1.6 K/mm3 (0.0-0.8) H 01/20/18 07:48 Eos # 0.0 K/mm3 (0.0-0.4) 01/20/18 07:48 Baso # 0.1 K/mm3 (0.0-0.1) 01/20/18 07:48 Add Manual Diff Complete 01/20/18 14:15 Total Counted 100 01/20/18 14:15 Seg Neutrophils % 82.6 % (40.0-70.0) H 01/20/18 07:48 Seg Neuts % (Manual) 82.0 % (40.0-70.0) H 01/20/18 14:15 Band Neutrophils % 0 % 01/20/18 14:15 Lymphocytes % (Manual) 9.0 % (13.4-35.0) L 01/20/18 14:15 Reactive Lymphs % (Man) 0 % 01/20/18 14:15 Monocytes % (Manual) 9.0 % (0.0-7.3) H 01/20/18 14:15 Eosinophils % (Manual) 0 % (0.0-4.3) 01/20/18 14:15 Basophils % (Manual) 0 % (0.0-1.8) 01/20/18 14:15 Metamyelocytes % 0 % 01/20/18 14:15 Myelocytes % 0 % 01/20/18 14:15 Promyelocytes % 0 % 01/20/18 14:15 Blast Cells % 0 % 01/20/18 14:15 Nucleated RBC % Not Reportable 01/20/18 14:15 Seg Neutrophils # 10.7 K/mm3 (1.8-7.7) H 01/20/18 07:48 Seg Neutrophils # Man 10.6 K/mm3 (1.8-7.7) H 01/20/18 14:15 Band Neutrophils # 0.0 K/mm3 01/20/18 14:15 Lymphocytes # (Manual) 1.2 K/mm3 (1.2-5.4) 01/20/18 14:15 Abs React Lymphs (Man) 0.0 K/mm3 01/20/18 14:15 Monocytes # (Manual) 1.2 K/mm3 (0.0-0.8) H 01/20/18 14:15 Eosinophils # (Manual) 0.0 K/mm3 (0.0-0.4) 01/20/18 14:15 Basophils # (Manual) 0.0 K/mm3 (0.0-0.1) 01/20/18 14:15 Metamyelocytes # 0.0 K/mm3 01/20/18 14:15 Myelocytes # 0.0 K/mm3 01/20/18 14:15 Promyelocytes # 0.0 K/mm3 01/20/18 14:15 Blast Cells # 0.0 K/mm3 01/20/18 14:15 WBC Morphology Not Reportable 01/20/18 14:15 Hypersegmented Neuts Not Reportable 01/20/18 14:15 Hyposegmented Neuts Not Reportable 01/20/18 14:15 Hypogranular Neuts Not Reportable 01/20/18 14:15 Smudge Cells Not Reportable 01/20/18 14:15 Toxic Granulation Not Reportable 01/20/18 14:15 Toxic Vacuolation Not Reportable 01/20/18 14:15 Dohle Bodies Not Reportable 01/20/18 14:15 Pelger-Huet Anomaly Not Reportable 01/20/18 14:15 Caitlin Rods Not Reportable 01/20/18 14:15 Platelet Estimate Consistent w auto 01/20/18 14:15 Clumped Platelets Not Reportable 01/20/18 14:15 Plt Clumps, EDTA Not Reportable 01/20/18 14:15 Large Platelets Not Reportable 01/20/18 14:15 Giant Platelets Not Reportable 01/20/18 14:15 Platelet Satelliting Not Reportable 01/20/18 14:15 Plt Morphology Comment Not Reportable 01/20/18 14:15 RBC Morphology Not Reportable 01/20/18 14:15 Dimorphic RBCs Not Reportable 01/20/18 14:15 Polychromasia Few 01/20/18 14:15 Hypochromasia Not Reportable 01/20/18 14:15 Poikilocytosis Not Reportable 01/20/18 14:15 Anisocytosis Not Reportable 01/20/18 14:15 Microcytosis Not Reportable 01/20/18 14:15 Macrocytosis 1+ 01/20/18 14:15 Spherocytes Not Reportable 01/20/18 14:15 Pappenheimer Bodies Not Reportable 01/20/18 14:15 Sickle Cells Not Reportable 01/20/18 14:15 Target Cells Not Reportable 01/20/18 14:15 Tear Drop Cells Not Reportable 01/20/18 14:15 Ovalocytes Not Reportable 01/20/18 14:15 Helmet Cells Not Reportable 01/20/18 14:15 [place] Bodies Not Reportable 01/20/18 14:15 [place] Rings Not Reportable 01/20/18 14:15 Sil Cells Not Reportable 01/20/18 14:15 Bite Cells Not Reportable 01/20/18 14:15 Crenated Cell Not Reportable 01/20/18 14:15 Elliptocytes Not Reportable 01/20/18 14:15 Acanthocytes (Spur) Not Reportable 01/20/18 14:15 Rouleaux Not Reportable 01/20/18 14:15 Hemoglobin C Crystals Not Reportable 01/20/18 14:15 Schistocytes Not Reportable 01/20/18 14:15 Malaria parasites Not Reportable 01/20/18 14:15 [place] Bodies Not Reportable 01/20/18 14:15 Hem Pathologist Commnt No 01/20/18 14:15 Sodium 140 mmol/L (137-145) 01/22/18 05:15 Potassium 4.3 mmol/L (3.6-5.0) 01/22/18 05:15 Chloride 101.7 mmol/L (98-107) 01/22/18 05:15 Carbon Dioxide 24 mmol/L (22-30) 01/22/18 05:15 Anion Gap 19 mmol/L 01/22/18 05:15 BUN 62 mg/dL (9-20) H 01/22/18 05:15 Creatinine 3.0 mg/dL (0.8-1.5) H 01/22/18 05:15 Estimated GFR 26 ml/min 01/22/18 05:15 BUN/Creatinine Ratio 21 % 01/22/18 05:15 Glucose 154 mg/dL (75-100) H 01/22/18 05:15 POC Glucose 102 (70-105) 01/23/18 07:06 Calcium 8.4 mg/dL (8.4-10.2) 01/22/18 05:15 Total Bilirubin 0.60 mg/dL (0.1-1.2) 01/20/18 07:48 AST 17 units/L (5-40) 01/20/18 07:48 ALT 34 units/L (7-56) 01/20/18 07:48 Alkaline Phosphatase 221 units/L (35-129) H 01/20/18 07:48 Total Protein 5.6 g/dL (6.3-8.2) L 01/20/18 07:48 Albumin 3.2 g/dL (3.9-5) L 01/20/18 07:48 Albumin/Globulin Ratio 1.3 % 01/20/18 07:48 Urine Color Yellow (Yellow) 01/21/18 Unknown Urine Turbidity Clear (Clear) 01/21/18 Unknown Urine pH 5.0 (5.0-7.0) 01/21/18 Unknown Ur Specific [place] 1.009 (1.003-1.030) 01/21/18 Unknown Urine Protein 100 mg/dl mg/dL (Negative) 01/21/18 Unknown Urine Glucose (UA) 50 mg/dL (Negative) 01/21/18 Unknown Urine Ketones Neg mg/dL (Negative) 01/21/18 Unknown Urine Blood Neg (Negative) 01/21/18 Unknown Urine Nitrite Neg (Negative) 01/21/18 Unknown Urine Bilirubin Neg (Negative) 01/21/18 Unknown Urine Urobilinogen < 2.0 mg/dL (<2.0) 01/21/18 Unknown Ur Leukocyte Esterase Neg (Negative) 01/21/18 Unknown Urine WBC (Auto) < 1.0 /HPF (0.0-6.0) 01/21/18 Unknown Urine RBC (Auto) < 1.0 /HPF (0.0-6.0) 01/21/18 Unknown U Epithel Cells (Auto) < 1.0 /HPF (0-13.0) 01/21/18 Unknown Hyaline Casts /LPF 01/21/18 Unknown
--- NOTE | 2018-01-23 12:07 | Progress Note ---
Assessment and Plan Impression: * HENRY on Stage IV chronic kidney disease - followed by Dr. Young * Hypertension * Gout * azotemia * s/p femur fracture * Anemia secondary to CKD Plan: * initiated hd, plans on treatment today as well * uremia is better * will follow off HD over the weekend to monitor recovery * stopped steriods--low purine diet * Continue antiHTN medicaions * Encouraged po hydration * Avoid nephrotoxins * Dose medications for renal function * Epogen prn Subjective Date of service: 01/23/18 Principal diagnosis: henry Interval history: resting in bed today Objective - Exam Narrative Exam: General appearance: well-developed, well-nourished EENT: ATNC Respiratory: Present: Clear to Ascultation Cardiology: regular, S1S2 Gastrointestinal: normal, no tenderness, no distended Integumentary: no rash, warm and dry Neurologic: no focal deficit Musculoskeletal: other (no edema) Psychiatric: cooperativ - Vital Signs Vital signs: Vital Signs - 12hr 01/23/18 01/23/18 01/23/18 04:57 06:56 09:37 Temperature 98.2 F 98.8 F Pulse Rate 87 95 H 98 H Respiratory 20 20 Rate Blood Pressure 145/107 167/98 167/98 O2 Sat by Pulse 96 99 Oximetry 01/23/18 09:38 Temperature Pulse Rate 95 H Respiratory Rate Blood Pressure 167/98 O2 Sat by Pulse Oximetry - Lab 01/22/18 05:15 01/22/18 05:15 Most recent lab results Calcium 8.4 mg/dL (8.4-10.2) 01/22/18 05:15
[2018-01-23 13:23] LABS: Calcium 8.5 mg/dL (8.4-10.2)
[2018-01-23] MEDS: SODIUM CHLORIDE FLUSH SYRINGE 10 ML IV SCH (14:13)
[2018-01-23] MEDS: CATAPRES PO PRN (14:21)
[2018-01-23] MEDS: LATANOPROST 0.005% OU SCH (17:42)
[2018-01-24] MEDS: NEURONTIN PO SCH ×3 (06:17→21:08)
[2018-01-24] MEDS: LASIX PO SCH (06:19)
--- NOTE | 2018-01-24 08:44 | Progress Note ---
Assessment and Plan Assessment and plan: 62 YO Male with HTN, ESRD, Cirrhosis, ETOH Abuse, Gout admitted directly after discharged by Ortho Surgery service and underwent a left hip replacement surgery. While in the hospital was noted to have worsening renal disease with acute kidney disease on stage IV chronic kidney disease had intermittent dialysis and was discharged to rehabilitation but while at rehabilitation had worsening renal function and readmitted for dialysis which may be permanent days and discussion. On admission patient was initially on steroids and this was stopped due to worsening azotemia. Other renal workup was obtained by certified ophthalmic assistant. Patient continues rehabilitation due to recent surgery..Pt denies fever, chills, CP, Palpitations, NVD, Trauma, tremors, or recent ill contacts. NO reported nursing events. - Patient Problems (1) acute kidney injury on stage IV chronic kidney disease Current Visit: Yes Status: Acute Plan to address problem: Nephrology consulted for dialysis noted, dialysis started after permacath placed strict I/O, monitor uop q shift, avoid nephrotoxic agents Nephrology plans to monitor over the weekend off dialysis to see if improvement Outpatient followed by Dr. Young Renal function appears to show some improvement, will see what it is in am. Discussed with case management awaiting [facility]. (2) Femur fracture, left Current Visit: No Status: Acute Qualifiers: Encounter type: initial encounter Femur location: intertrochanteric Fracture type: closed Plan to address problem: PT S/P ORIF, Physical therapy consulted, Pt discharged from inpatient Rehab, Case management consulted for D/C planning. (3) Alcoholic cirrhosis of liver Current Visit: No Status: Chronic Qualifiers: Ascites presence: without ascites Qualified Code(s): K70.30 - Alcoholic cirrhosis of liver without ascites Plan to address problem: supportive care, Extensive counseling provided to the patient who verbalized understanding (4) Cirrhosis Current Visit: No Status: Chronic Qualifiers: Hepatic cirrhosis type: alcoholic cirrhosis Ascites presence: without ascites Qualified Code(s): K70.30 - Alcoholic cirrhosis of liver without ascites Plan to address problem: supportive care, ETOH cessation counseling (5) hyperkalemia * Resolved. (6)DVT prophylaxis Current Visit: No Status: Acute Plan to address problem: Heparin BID Plan of care discussed with the patient and SPOUSE History Interval history: Patient seen and examined . No new complaints and no new adverse event reported to me by nursing staff. Spouse at Bedside Hospitalist Physical - Physical exam Narrative exam: VITAL SIGNS: Reviewed. GENERAL: The patient appeared well nourished and normally developed. Vital signs as documented. HEAD: No signs of head trauma. EYES: Pupils are equal. Extraocular motions intact. EARS: Hearing grossly intact. MOUTH: Oropharynx is normal. NECK: No adenopathy, no JVD. CHEST: Chest with clear breath sounds bilaterally. No wheezes, rales, or rhonchi. CARDIAC: Regular rate and rhythm. S1 and S2, without murmurs, gallops, or rubs. VASCULAR: No Edema. Peripheral pulses normal and equal in all extremities. ABDOMEN: Soft, without detectable tenderness. No sign of distention. No rebound or guarding, and no masses palpated. Bowel Sounds normal. MUSCULOSKELETAL: Good range of motion of all major joints except hip joints but shows status post hip replacement recently.. Extremities without clubbing, cyanosis or edema. NEUROLOGIC EXAM: Alert and oriented x 3. No focal sensory or strength deficits. Speech normal. Follows commands. PSYCHIATRIC: Mood normal. SKIN: No rash or lesions. - Constitutional Vitals: Temp Pulse Resp BP Pulse Ox 99.0 F 85 18 165/92 98 01/24/18 06:47 01/24/18 06:47 01/24/18 06:47 01/24/18 06:47 01/24/18 06:47 General appearance: Present: mild distress Results - Labs CBC & Chem 7: 01/24/18 10:42 01/24/18 10:42 Labs: Laboratory Last Values WBC 9.8 K/mm3 (4.5-11.0) 01/22/18 05:15 RBC 3.05 M/mm3 (3.65-5.03) L 01/22/18 05:15 Hgb 9.1 gm/dl (11.8-15.2) L 01/22/18 05:15 Hct 28.0 % (35.5-45.6) L 01/22/18 05:15 MCV 92 fl (84-94) 01/22/18 05:15 MCH 30 pg (28-32) 01/22/18 05:15 MCHC 33 % (32-34) 01/22/18 05:15 RDW 18.1 % (13.2-15.2) H 01/22/18 05:15 Plt Count 122 K/mm3 (140-440) L 01/22/18 05:15 Lymph % (Auto) 4.3 % (13.4-35.0) L 01/20/18 07:48 [place] % (Auto) 12.5 % (0.0-7.3) H 01/20/18 07:48 Eos % (Auto) 0.0 % (0.0-4.3) 01/20/18 07:48 Baso % (Auto) 0.6 % (0.0-1.8) 01/20/18 07:48 Lymph # 0.6 K/mm3 (1.2-5.4) L 01/20/18 07:48 [place] # 1.6 K/mm3 (0.0-0.8) H 01/20/18 07:48 Eos # 0.0 K/mm3 (0.0-0.4) 01/20/18 07:48 Baso # 0.1 K/mm3 (0.0-0.1) 01/20/18 07:48 Add Manual Diff Complete 01/20/18 14:15 Total Counted 100 01/20/18 14:15 Seg Neutrophils % 82.6 % (40.0-70.0) H 01/20/18 07:48 Seg Neuts % (Manual) 82.0 % (40.0-70.0) H 01/20/18 14:15 Band Neutrophils % 0 % 01/20/18 14:15 Lymphocytes % (Manual) 9.0 % (13.4-35.0) L 01/20/18 14:15 Reactive Lymphs % (Man) 0 % 01/20/18 14:15 Monocytes % (Manual) 9.0 % (0.0-7.3) H 01/20/18 14:15 Eosinophils % (Manual) 0 % (0.0-4.3) 01/20/18 14:15 Basophils % (Manual) 0 % (0.0-1.8) 01/20/18 14:15 Metamyelocytes % 0 % 01/20/18 14:15 Myelocytes % 0 % 01/20/18 14:15 Promyelocytes % 0 % 01/20/18 14:15 Blast Cells % 0 % 01/20/18 14:15 Nucleated RBC % Not Reportable 01/20/18 14:15 Seg Neutrophils # 10.7 K/mm3 (1.8-7.7) H 01/20/18 07:48 Seg Neutrophils # Man 10.6 K/mm3 (1.8-7.7) H 01/20/18 14:15 Band Neutrophils # 0.0 K/mm3 01/20/18 14:15 Lymphocytes # (Manual) 1.2 K/mm3 (1.2-5.4) 01/20/18 14:15 Abs React Lymphs (Man) 0.0 K/mm3 01/20/18 14:15 Monocytes # (Manual) 1.2 K/mm3 (0.0-0.8) H 01/20/18 14:15 Eosinophils # (Manual) 0.0 K/mm3 (0.0-0.4) 01/20/18 14:15 Basophils # (Manual) 0.0 K/mm3 (0.0-0.1) 01/20/18 14:15 Metamyelocytes # 0.0 K/mm3 01/20/18 14:15 Myelocytes # 0.0 K/mm3 01/20/18 14:15 Promyelocytes # 0.0 K/mm3 01/20/18 14:15 Blast Cells # 0.0 K/mm3 01/20/18 14:15 WBC Morphology Not Reportable 01/20/18 14:15 Hypersegmented Neuts Not Reportable 01/20/18 14:15 Hyposegmented Neuts Not Reportable 01/20/18 14:15 Hypogranular Neuts Not Reportable 01/20/18 14:15 Smudge Cells Not Reportable 01/20/18 14:15 Toxic Granulation Not Reportable 01/20/18 14:15 Toxic Vacuolation Not Reportable 01/20/18 14:15 Dohle Bodies Not Reportable 01/20/18 14:15 Pelger-Huet Anomaly Not Reportable 01/20/18 14:15 Caitlin Rods Not Reportable 01/20/18 14:15 Platelet Estimate Consistent w auto 01/20/18 14:15 Clumped Platelets Not Reportable 01/20/18 14:15 Plt Clumps, EDTA Not Reportable 01/20/18 14:15 Large Platelets Not Reportable 01/20/18 14:15 Giant Platelets Not Reportable 01/20/18 14:15 Platelet Satelliting Not Reportable 01/20/18 14:15 Plt Morphology Comment Not Reportable 01/20/18 14:15 RBC Morphology Not Reportable 01/20/18 14:15 Dimorphic RBCs Not Reportable 01/20/18 14:15 Polychromasia Few 01/20/18 14:15 Hypochromasia Not Reportable 01/20/18 14:15 Poikilocytosis Not Reportable 01/20/18 14:15 Anisocytosis Not Reportable 01/20/18 14:15 Microcytosis Not Reportable 01/20/18 14:15 Macrocytosis 1+ 01/20/18 14:15 Spherocytes Not Reportable 01/20/18 14:15 Pappenheimer Bodies Not Reportable 01/20/18 14:15 Sickle Cells Not Reportable 01/20/18 14:15 Target Cells Not Reportable 01/20/18 14:15 Tear Drop Cells Not Reportable 01/20/18 14:15 Ovalocytes Not Reportable 01/20/18 14:15 Helmet Cells Not Reportable 01/20/18 14:15 Montoya-Bryce Bodies Not Reportable 01/20/18 14:15 Sisters Rings Not Reportable 01/20/18 14:15 [place] Cells Not Reportable 01/20/18 14:15 Bite Cells Not Reportable 01/20/18 14:15 Crenated Cell Not Reportable 01/20/18 14:15 Elliptocytes Not Reportable 01/20/18 14:15 Acanthocytes (Spur) Not Reportable 01/20/18 14:15 Rouleaux Not Reportable 01/20/18 14:15 Hemoglobin C Crystals Not Reportable 01/20/18 14:15 Schistocytes Not Reportable 01/20/18 14:15 Malaria parasites Not Reportable 01/20/18 14:15 Trent Bodies Not Reportable 01/20/18 14:15 Hem Pathologist Commnt No 01/20/18 14:15 Sodium 141 mmol/L (137-145) 01/23/18 12:46 Potassium 3.8 mmol/L (3.6-5.0) 01/23/18 12:46 Chloride 99.6 mmol/L (98-107) 01/23/18 12:46 Carbon Dioxide 26 mmol/L (22-30) 01/23/18 12:46 Anion Gap 19 mmol/L 01/23/18 12:46 BUN 41 mg/dL (9-20) H 01/23/18 12:46 Creatinine 2.7 mg/dL (0.8-1.5) H 01/23/18 12:46 Estimated GFR 29 ml/min 01/23/18 12:46 BUN/Creatinine Ratio 15 % 01/23/18 12:46 Glucose 157 mg/dL (75-100) H 01/23/18 12:46 POC Glucose 157 (70-105) H 01/24/18 06:59 Calcium 8.5 mg/dL (8.4-10.2) 01/23/18 12:46 Total Bilirubin 0.60 mg/dL (0.1-1.2) 01/20/18 07:48 AST 17 units/L (5-40) 01/20/18 07:48 ALT 34 units/L (7-56) 01/20/18 07:48 Alkaline Phosphatase 221 units/L (35-129) H 01/20/18 07:48 Total Protein 5.6 g/dL (6.3-8.2) L 01/20/18 07:48 Albumin 3.2 g/dL (3.9-5) L 01/20/18 07:48 Albumin/Globulin Ratio 1.3 % 01/20/18 07:48 Urine Color Yellow (Yellow) 01/21/18 Unknown Urine Turbidity Clear (Clear) 01/21/18 Unknown Urine pH 5.0 (5.0-7.0) 01/21/18 Unknown Ur Specific [place] 1.009 (1.003-1.030) 01/21/18 Unknown Urine Protein 100 mg/dl mg/dL (Negative) 01/21/18 Unknown Urine Glucose (UA) 50 mg/dL (Negative) 01/21/18 Unknown Urine Ketones Neg mg/dL (Negative) 01/21/18 Unknown Urine Blood Neg (Negative) 01/21/18 Unknown Urine Nitrite Neg (Negative) 01/21/18 Unknown Urine Bilirubin Neg (Negative) 01/21/18 Unknown Urine Urobilinogen < 2.0 mg/dL (<2.0) 01/21/18 Unknown Ur Leukocyte Esterase Neg (Negative) 01/21/18 Unknown Urine WBC (Auto) < 1.0 /HPF (0.0-6.0) 01/21/18 Unknown Urine RBC (Auto) < 1.0 /HPF (0.0-6.0) 01/21/18 Unknown U Epithel Cells (Auto) < 1.0 /HPF (0-13.0) 01/21/18 Unknown Hyaline Casts 1 /LPF 01/21/18 Unknown
[2018-01-24] MEDS: SODIUM CHLORIDE FLUSH SYRINGE 10 ML IV SCH ×2 (10:09→10:56)
[2018-01-24] MEDS: MAG-OX PO SCH (10:10)
[2018-01-24] MEDS: ULORIC PO SCH (10:10)
[2018-01-24] MEDS: HEPARIN SUB-Q SCH ×2 (10:53→21:08)
--- NOTE | 2018-01-24 11:45 | Progress Note ---
Assessment and Plan Impression: * HENRY on Stage IV chronic kidney disease - followed by Dr. Young * Hypertension * Gout * azotemia * s/p femur fracture * Anemia secondary to CKD Plan: * initiated hd x 3 days * uremia is better * will follow off HD over the weekend to monitor recovery * stopped steriods--low purine diet * Continue antiHTN medicaions * Encouraged po hydration * Avoid nephrotoxins * Dose medications for renal function * Epogen prn Subjective Date of service: 01/24/18 Principal diagnosis: henry Interval history: resting in bed today Objective - Exam Narrative Exam: General appearance: well-developed, well-nourished EENT: ATNC Respiratory: Present: Clear to Ascultation Cardiology: regular, S1S2 Gastrointestinal: normal, no tenderness, no distended Integumentary: no rash, warm and dry Neurologic: no focal deficit Musculoskeletal: other (no edema) Psychiatric: cooperativ - Vital Signs Vital signs: Vital Signs - 12hr 01/24/18 01/24/18 03:35 06:47 Temperature 99.3 F 99.0 F Pulse Rate 88 85 Respiratory 18 18 Rate Blood Pressure 137/75 165/92 O2 Sat by Pulse 97 98 Oximetry - Lab 01/22/18 05:15 01/23/18 12:46 Most recent lab results Calcium 8.5 mg/dL (8.4-10.2) 01/23/18 12:46
[2018-01-24 11:48] LABS: Hematocrit 26.2 % (35.5-45.6); Hemoglobin 8.5 gm/dl (11.8-15.2); Mean Corpuscular HGB Conc 32 % (32-34); Mean Corpuscular Hemoglobin 30 pg (28-32); Mean Corpuscular Volume 92 fl (84-94); Platelet Count 85 K/mm3 (140-440); Red Blood Count 2.85 M/mm3 (3.65-5.03); Red Cell Distribution Width 18.7 % (13.2-15.2)
[2018-01-24] MEDS: NORVASC PO SCH (11:52)
[2018-01-24] MEDS: THERAGRAN-M Tab PO SCH (11:52)
[2018-01-24] MEDS: COLCHICINE PO SCH (11:52)
[2018-01-24] MEDS: TENORMIN PO SCH (11:52)
[2018-01-24] MEDS: FEOSOL PO SCH (11:52)
[2018-01-24] MEDS: PROTONIX PO SCH (11:53)
[2018-01-24] MEDS: PEPCID PO SCH (11:53)
[2018-01-24] MEDS: HumaLOG SUB-Q SCH ×3 (12:05→17:05)
[2018-01-24 12:07] LABS: Calcium 8.3 mg/dL (8.4-10.2)
[2018-01-25] MEDS: LASIX PO SCH (05:30)
[2018-01-25] MEDS: CATAPRES PO PRN (05:31)
[2018-01-25] MEDS: NEURONTIN PO SCH ×3 (05:31→21:01)
[2018-01-25] MEDS: HumaLOG SUB-Q SCH ×4 (08:10→23:00)
--- NOTE | 2018-01-25 08:24 | Progress Note ---
Assessment and Plan Impression: * HENRY on Stage IV chronic kidney disease - followed by Dr. Young * Hypertension * Gout * azotemia * s/p femur fracture * Anemia secondary to CKD Plan: * patient had hd x 3 days * uremia is better * Last dialysis was on 01/22/18 . * Check 24 hour urine for clearance . Continue to hold dialysis for now * stopped steriods--low purine diet * Continue antiHTN medicaions * Encouraged po hydration * Avoid nephrotoxins * Dose medications for renal function * Epogen prn * D/W patient and his at bedside Subjective Date of service: 01/25/18 Principal diagnosis: henry Interval history: patient feels well today . Denies SOB . No nausea or vomiting Objective - Vital Signs Vital signs: Vital Signs - 12hr 01/24/18 01/24/18 01/25/18 22:00 23:34 04:47 Temperature 98.2 F 98.7 F Pulse Rate 84 82 Respiratory 18 18 Rate Blood Pressure 158/94 160/96 O2 Sat by Pulse 97 98 98 Oximetry 01/25/18 05:31 Temperature Pulse Rate 81 Respiratory Rate Blood Pressure 160/96 O2 Sat by Pulse Oximetry - General Appearance General appearance: well-developed, well-nourished, appears stated age EENT: PERRL, mucous membranes moist Neck: no JVD, no thyromegaly, no carotid bruit, supple, other (right IJ permcath in place ) Respiratory: Present: Clear to Ascultation Cardiology: regular, normal heart rate, S1S2, no murmurs Gastrointestinal: normal, normoactive bowel sounds Integumentary: other (1+ edema ) - Lab 01/24/18 10:42 01/25/18 09:11 Most recent lab results Calcium 8.3 mg/dL (8.4-10.2) L 01/24/18 10:42
[2018-01-25] MEDS: ULORIC PO SCH (09:51)
[2018-01-25] MEDS: HEPARIN SUB-Q SCH ×2 (09:52→21:00)
[2018-01-25] MEDS: MAG-OX PO SCH (09:53)
[2018-01-25] MEDS: THERAGRAN-M Tab PO SCH (09:53)
[2018-01-25] MEDS: FEOSOL PO SCH (09:53)
[2018-01-25] MEDS: PEPCID PO SCH (09:54)
[2018-01-25] MEDS: NORVASC PO SCH (09:54)
[2018-01-25] MEDS: PROTONIX PO SCH (09:54)
[2018-01-25] MEDS: TENORMIN PO SCH (09:57)
[2018-01-25 10:03] LABS: Calcium 8.1 mg/dL (8.4-10.2)
[2018-01-25] MEDS: SODIUM CHLORIDE FLUSH SYRINGE 10 ML IV SCH ×2 (10:10→21:01)
--- NOTE | 2018-01-25 13:58 | Query- SIRS ---
Dear Date: 01/25/18 Insurance Claim Auditor/CDS:__kelton/True Phone#:__[phone] Exercise your independent professional judgment when responding to query. Questions asked do not imply a particular answer is desired or expected. We greatly appreciate your clarification on this issue. Clinical Documentation States: 62 YO Male with HTN, ESRD, Cirrhosis, ETOH Abuse, Gout admitted directly after discharged by Ortho Surgery service and underwent a left hip replacement surgery. While in the hospital was noted to have worsening renal disease with acute kidney disease on stage IV chronic kidney disease had intermittent dialysis and was discharged to rehabilitation but while at rehabilitation had worsening renal function and readmitted for dialysis which may be permanent days and discussion. On admission patient was initially on steroids and this was stopped due to worsening azotemia. Taken from () progress note on . - Patient Problems (1) acute kidney injury on stage IV chronic kidney disease (2) Femur fracture, left (3) Alcoholic cirrhosis of liver (4) Cirrhosis (5) hyperkalemia Clinical Findings Show (include reference to source document): 01/20/18 01/22/18 WBC 12.9 9.8 HI 85 94 Based on the above clinical scenario and your knowledge of the patient, please indicate the most appropriate diagnosis: [ ] SIRS (non-infectious) with Acute Organ Dysfunction [ X] SIRS (non-infectious) without Acute Organ Dysfunction [ ] Other: [ ] Unable to determine [ ] Comment/Explanation: Present on Admission: [Y ] Yes (Y) [ ] Clinically undeterminable (W) [ ] No (N) Please also document response in your Progress Notes and/or Discharge Summary and indicate if the condition was present on admission. ДМИТРИЙD
[2018-01-25] MEDS: LATANOPROST 0.005% OU SCH (17:30)
--- NOTE | 2018-01-25 17:31 | Progress Note ---
Assessment and Plan Assessment and plan: 62 YO Male with HTN, ESRD, Cirrhosis, ETOH Abuse, Gout admitted directly after discharged by Ortho Surgery service and underwent a left hip replacement surgery. While in the hospital was noted to have worsening renal disease with acute kidney disease on stage IV chronic kidney disease had intermittent dialysis and was discharged to rehabilitation but while at rehabilitation had worsening renal function and readmitted for dialysis which may be permanent days and discussion. On admission patient was initially on steroids and this was stopped due to worsening azotemia. Other renal workup was obtained by crusher and blender operator. Patient continues rehabilitation due to recent surgery..Pt denies fever, chills, CP, Palpitations, NVD, Trauma, tremors, or recent ill contacts. NO reported nursing events. - Patient Problems (1) acute kidney injury on stage IV chronic kidney disease Current Visit: Yes Status: Acute Plan to address problem: Nephrology consulted for dialysis noted, dialysis started after permacath placed strict I/O, monitor uop q shift, avoid nephrotoxic agents Nephrology plans to monitor over the weekend off dialysis to see if improvement Outpatient followed by Dr. Young Renal function mildly elevated 24 hour creatnine clearance ongoing. Discussed with case management awaiting [facility]. (2) Femur fracture, left Current Visit: No Status: Acute Qualifiers: Encounter type: initial encounter Femur location: intertrochanteric Fracture type: closed Plan to address problem: PT S/P ORIF, Physical therapy consulted, Pt discharged from inpatient Rehab, Case management consulted for D/C planning. (3) Alcoholic cirrhosis of liver Current Visit: No Status: Chronic Qualifiers: Ascites presence: without ascites Qualified Code(s): K70.30 - Alcoholic cirrhosis of liver without ascites Plan to address problem: supportive care, Extensive counseling provided to the patient who verbalized understanding (4) Cirrhosis Current Visit: No Status: Chronic Qualifiers: Hepatic cirrhosis type: alcoholic cirrhosis Ascites presence: without ascites Qualified Code(s): K70.30 - Alcoholic cirrhosis of liver without ascites Plan to address problem: supportive care, ETOH cessation counseling (5) hyperkalemia * Resolved. (6)DVT prophylaxis Current Visit: No Status: Acute Plan to address problem: Heparin BID Plan of care discussed with the patient and SPOUSE History Interval history: Patient seen and examined . No new complaints and no new adverse event reported to me by nursing staff. Hospitalist Physical - Physical exam Narrative exam: VITAL SIGNS: Reviewed. GENERAL: The patient appeared well nourished and normally developed. Vital signs as documented. HEAD: No signs of head trauma. EYES: Pupils are equal. Extraocular motions intact. EARS: Hearing grossly intact. MOUTH: Oropharynx is normal. NECK: No adenopathy, no JVD. CHEST: Chest with clear breath sounds bilaterally. No wheezes, rales, or rhonchi. CARDIAC: Regular rate and rhythm. S1 and S2, without murmurs, gallops, or rubs. VASCULAR: No Edema. Peripheral pulses normal and equal in all extremities. ABDOMEN: Soft, without detectable tenderness. No sign of distention. No rebound or guarding, and no masses palpated. Bowel Sounds normal. MUSCULOSKELETAL: Good range of motion of all major joints except hip joints but shows status post hip replacement recently.. Extremities without clubbing, cyanosis or edema. NEUROLOGIC EXAM: Alert and oriented x 3. No focal sensory or strength deficits. Speech normal. Follows commands. PSYCHIATRIC: Mood normal. SKIN: No rash or lesions. - Constitutional Vitals: Temp Pulse Resp BP Pulse Ox 98.3 F 77 18 152/93 97 01/25/18 16:19 01/25/18 16:19 01/25/18 16:19 01/25/18 16:19 01/25/18 16:19 General appearance: Present: mild distress Results - Labs CBC & Chem 7: 01/24/18 10:42 01/25/18 09:11 Labs: Laboratory Last Values WBC 6.0 K/mm3 (4.5-11.0) 01/24/18 10:42 RBC 2.85 M/mm3 (3.65-5.03) L 01/24/18 10:42 Hgb 8.5 gm/dl (11.8-15.2) L 01/24/18 10:42 Hct 26.2 % (35.5-45.6) L 01/24/18 10:42 MCV 92 fl (84-94) 01/24/18 10:42 MCH 30 pg (28-32) 01/24/18 10:42 MCHC 32 % (32-34) 01/24/18 10:42 RDW 18.7 % (13.2-15.2) H 01/24/18 10:42 Plt Count 85 K/mm3 (140-440) L 01/24/18 10:42 Lymph % (Auto) 4.3 % (13.4-35.0) L 01/20/18 07:48 [place] % (Auto) 12.5 % (0.0-7.3) H 01/20/18 07:48 Eos % (Auto) 0.0 % (0.0-4.3) 01/20/18 07:48 Baso % (Auto) 0.6 % (0.0-1.8) 01/20/18 07:48 Lymph # 0.6 K/mm3 (1.2-5.4) L 01/20/18 07:48 [place] # 1.6 K/mm3 (0.0-0.8) H 01/20/18 07:48 Eos # 0.0 K/mm3 (0.0-0.4) 01/20/18 07:48 Baso # 0.1 K/mm3 (0.0-0.1) 01/20/18 07:48 Add Manual Diff Complete 01/20/18 14:15 Total Counted 100 01/20/18 14:15 Seg Neutrophils % 82.6 % (40.0-70.0) H 01/20/18 07:48 Seg Neuts % (Manual) 82.0 % (40.0-70.0) H 01/20/18 14:15 Band Neutrophils % 0 % 01/20/18 14:15 Lymphocytes % (Manual) 9.0 % (13.4-35.0) L 01/20/18 14:15 Reactive Lymphs % (Man) 0 % 01/20/18 14:15 Monocytes % (Manual) 9.0 % (0.0-7.3) H 01/20/18 14:15 Eosinophils % (Manual) 0 % (0.0-4.3) 01/20/18 14:15 Basophils % (Manual) 0 % (0.0-1.8) 01/20/18 14:15 Metamyelocytes % 0 % 01/20/18 14:15 Myelocytes % 0 % 01/20/18 14:15 Promyelocytes % 0 % 01/20/18 14:15 Blast Cells % 0 % 01/20/18 14:15 Nucleated RBC % Not Reportable 01/20/18 14:15 Seg Neutrophils # 10.7 K/mm3 (1.8-7.7) H 01/20/18 07:48 Seg Neutrophils # Man 10.6 K/mm3 (1.8-7.7) H 01/20/18 14:15 Band Neutrophils # 0.0 K/mm3 01/20/18 14:15 Lymphocytes # (Manual) 1.2 K/mm3 (1.2-5.4) 01/20/18 14:15 Abs React Lymphs (Man) 0.0 K/mm3 01/20/18 14:15 Monocytes # (Manual) 1.2 K/mm3 (0.0-0.8) H 01/20/18 14:15 Eosinophils # (Manual) 0.0 K/mm3 (0.0-0.4) 01/20/18 14:15 Basophils # (Manual) 0.0 K/mm3 (0.0-0.1) 01/20/18 14:15 Metamyelocytes # 0.0 K/mm3 01/20/18 14:15 Myelocytes # 0.0 K/mm3 01/20/18 14:15 Promyelocytes # 0.0 K/mm3 01/20/18 14:15 Blast Cells # 0.0 K/mm3 01/20/18 14:15 WBC Morphology Not Reportable 01/20/18 14:15 Hypersegmented Neuts Not Reportable 01/20/18 14:15 Hyposegmented Neuts Not Reportable 01/20/18 14:15 Hypogranular Neuts Not Reportable 01/20/18 14:15 Smudge Cells Not Reportable 01/20/18 14:15 Toxic Granulation Not Reportable 01/20/18 14:15 Toxic Vacuolation Not Reportable 01/20/18 14:15 Dohle Bodies Not Reportable 01/20/18 14:15 Pelger-Huet Anomaly Not Reportable 01/20/18 14:15 Caitlin Rods Not Reportable 01/20/18 14:15 Platelet Estimate Consistent w auto 01/20/18 14:15 Clumped Platelets Not Reportable 01/20/18 14:15 Plt Clumps, EDTA Not Reportable 01/20/18 14:15 Large Platelets Not Reportable 01/20/18 14:15 Giant Platelets Not Reportable 01/20/18 14:15 Platelet Satelliting Not Reportable 01/20/18 14:15 Plt Morphology Comment Not Reportable 01/20/18 14:15 RBC Morphology Not Reportable 01/20/18 14:15 Dimorphic RBCs Not Reportable 01/20/18 14:15 Polychromasia Few 01/20/18 14:15 Hypochromasia Not Reportable 01/20/18 14:15 Poikilocytosis Not Reportable 01/20/18 14:15 Anisocytosis Not Reportable 01/20/18 14:15 Microcytosis Not Reportable 01/20/18 14:15 Macrocytosis 1+ 01/20/18 14:15 Spherocytes Not Reportable 01/20/18 14:15 Pappenheimer Bodies Not Reportable 01/20/18 14:15 Sickle Cells Not Reportable 01/20/18 14:15 Target Cells Not Reportable 01/20/18 14:15 Tear Drop Cells Not Reportable 01/20/18 14:15 Ovalocytes Not Reportable 01/20/18 14:15 Helmet Cells Not Reportable 01/20/18 14:15 [place] Bodies Not Reportable 01/20/18 14:15 [place] Rings Not Reportable 01/20/18 14:15 Sil Cells Not Reportable 01/20/18 14:15 Bite Cells Not Reportable 01/20/18 14:15 Crenated Cell Not Reportable 01/20/18 14:15 Elliptocytes Not Reportable 01/20/18 14:15 Acanthocytes (Spur) Not Reportable 01/20/18 14:15 Rouleaux Not Reportable 01/20/18 14:15 Hemoglobin C Crystals Not Reportable 01/20/18 14:15 Schistocytes Not Reportable 01/20/18 14:15 Malaria parasites Not Reportable 01/20/18 14:15 Trent Bodies Not Reportable 01/20/18 14:15 Hem Pathologist Commnt No 01/20/18 14:15 Sodium 143 mmol/L (137-145) 01/25/18 09:11 Potassium 3.8 mmol/L (3.6-5.0) 01/25/18 09:11 Chloride 103.6 mmol/L (98-107) 01/25/18 09:11 Carbon Dioxide 26 mmol/L (22-30) 01/25/18 09:11 Anion Gap 17 mmol/L 01/25/18 09:11 BUN 49 mg/dL (9-20) H 01/25/18 09:11 Creatinine 3.3 mg/dL (0.8-1.5) H 01/25/18 09:11 Estimated GFR 23 ml/min 01/25/18 09:11 BUN/Creatinine Ratio 15 % 01/25/18 09:11 Glucose 194 mg/dL (75-100) H 01/25/18 09:11 POC Glucose 138 (70-105) H 01/25/18 16:28 Calcium 8.1 mg/dL (8.4-10.2) L 01/25/18 09:11 Total Bilirubin 0.60 mg/dL (0.1-1.2) 01/20/18 07:48 AST 17 units/L (5-40) 01/20/18 07:48 ALT 34 units/L (7-56) 01/20/18 07:48 Alkaline Phosphatase 221 units/L (35-129) H 01/20/18 07:48 Total Protein 5.6 g/dL (6.3-8.2) L 01/20/18 07:48 Albumin 3.2 g/dL (3.9-5) L 01/20/18 07:48 Albumin/Globulin Ratio 1.3 % 01/20/18 07:48 Urine Color Yellow (Yellow) 01/21/18 Unknown Urine Turbidity Clear (Clear) 01/21/18 Unknown Urine pH 5.0 (5.0-7.0) 01/21/18 Unknown Ur Specific [place] 1.009 (1.003-1.030) 01/21/18 Unknown Urine Protein 100 mg/dl mg/dL (Negative) 01/21/18 Unknown Urine Glucose (UA) 50 mg/dL (Negative) 01/21/18 Unknown Urine Ketones Neg mg/dL (Negative) 01/21/18 Unknown Urine Blood Neg (Negative) 01/21/18 Unknown Urine Nitrite Neg (Negative) 01/21/18 Unknown Urine Bilirubin Neg (Negative) 01/21/18 Unknown Urine Urobilinogen < 2.0 mg/dL (<2.0) 01/21/18 Unknown Ur Leukocyte Esterase Neg (Negative) 01/21/18 Unknown Urine WBC (Auto) < 1.0 /HPF (0.0-6.0) 01/21/18 Unknown Urine RBC (Auto) < 1.0 /HPF (0.0-6.0) 01/21/18 Unknown U Epithel Cells (Auto) < 1.0 /HPF (0-13.0) 01/21/18 Unknown Hyaline Casts 1 /LPF 01/21/18 Unknown
[2018-01-26] MEDS: LASIX PO SCH (05:11)
[2018-01-26] MEDS: NEURONTIN PO SCH (05:11)
[2018-01-26 05:51] LABS: Calcium 8.2 mg/dL (8.4-10.2)
[2018-01-26] MEDS: HumaLOG SUB-Q SCH ×2 (08:26→12:26)
--- NOTE | 2018-01-26 08:33 | Progress Note ---
Assessment and Plan Impression: * HENRY on Stage IV chronic kidney disease - followed by Dr. Young * Hypertension * Gout * azotemia * s/p femur fracture * Anemia secondary to CKD Plan: * patient had hd x 3 days * uremia has resolved * Last dialysis was on 01/22/18 . * Creatinine clearance is 18 cc/min . Continue to hold dialysis for now * stopped steriods--low purine diet * Continue antiHTN medicaions * Encouraged po hydration * Avoid nephrotoxins * Dose medications for renal function * Epogen prn * D/W patient and his at bedside * OK to discharge patient from renal standpoint . He needs to follow up with his poultry cutter , Dr. Dougherty this week Subjective Date of service: 01/26/18 Principal diagnosis: henry Interval history: patient feels well today . Denies SOB . No nausea or vomiting Objective - Vital Signs Vital signs: Vital Signs - 12hr 01/25/18 01/25/18 01/26/18 22:00 23:58 05:08 Temperature 99.9 F H 98.5 F Pulse Rate 81 70 Respiratory 20 20 Rate Respiratory 17 Rate [Left Knee ] Blood Pressure 135/89 151/88 O2 Sat by Pulse 97 97 96 Oximetry - General Appearance General appearance: well-developed, well-nourished, appears stated age EENT: PERRL, mucous membranes moist Neck: no JVD, no thyromegaly, no carotid bruit, supple, other (IJ permcath in place ) Respiratory: Present: Clear to Ascultation Cardiology: regular, normal heart rate, S1S2, no murmurs Gastrointestinal: normal, normoactive bowel sounds Integumentary: no rash, other (trace edema ) - Lab 01/24/18 10:42 01/26/18 04:28 Most recent lab results Calcium 8.2 mg/dL (8.4-10.2) L 01/26/18 04:28
--- NOTE | 2018-01-26 09:45 | Discharge Summary ---
Providers - Providers Date of Admission: 01/19/18 18:59 Attending physician: JING TURNER MD 01/19/18 20:11 Consult to Physician [CONS] Routine Comment: Consulting Provider: AURELIO MERAZ Physician Instructions: Reason For Exam: esrd 01/20/18 06:01 Physical Therapy Evaluation and Treat [CONS] Routine Comment: Reason For Exam: weakness 01/20/18 06:03 Consult to Case Management [CONS] Routine Services Needed at Discharge: Other Notified:: CORK SLABS SAWYER Additional Physician Instructions: D/C planning. Please send out for SNF/ Rehab placement 01/22/18 12:25 Occupational Therapy Evaluate and Treat [CONS] Routine Comment: Reason For Exam: evaluation and treat Primary care physician: [employer] TECHNICIAN Hospitalization Hospital course: 62 YO Male with HTN, ESRD, Cirrhosis, ETOH Abuse, Gout admitted directly after discharged by Ortho Surgery service and underwent a left hip replacement surgery. While in the hospital was noted to have worsening renal disease with acute kidney disease on stage IV chronic kidney disease had intermittent dialysis and was discharged to rehabilitation but while at rehabilitation had worsening renal function and readmitted for dialysis which may be permanent days and discussion. On admission patient was initially on steroids and this was stopped due to worsening azotemia. Other renal workup was obtained by insurance examiner. Patient continues rehabilitation due to recent surgery..Pt denies fever, chills, CP, Palpitations, NVD, Trauma, tremors, or recent ill contacts. NO reported nursing events. - Patient Problems (1) acute kidney injury on stage IV chronic kidney disease Current Visit: Yes Status: Acute Plan to address problem: Nephrology consulted for dialysis noted, dialysis started after permacath placed strict I/O, monitor uop q shift, avoid nephrotoxic agents Nephrology plans to monitor over the weekend off dialysis to see if improvement Outpatient followed by Dr. Young Renal function mildly elevated 24 hour creatnine clearance ongoing. Discussed with case management awaiting [facility]. (2) Femur fracture, left Current Visit: No Status: Acute Qualifiers: Encounter type: initial encounter Femur location: intertrochanteric Fracture type: closed Plan to address problem: PT S/P ORIF, Physical therapy consulted, Pt discharged from inpatient Rehab, Case management consulted for D/C planning. (3) Alcoholic cirrhosis of liver Current Visit: No Status: Chronic Qualifiers: Ascites presence: without ascites Qualified Code(s): K70.30 - Alcoholic cirrhosis of liver without ascites Plan to address problem: supportive care, Extensive counseling provided to the patient who verbalized understanding (4) Cirrhosis Current Visit: No Status: Chronic Qualifiers: Hepatic cirrhosis type: alcoholic cirrhosis Ascites presence: without ascites Qualified Code(s): K70.30 - Alcoholic cirrhosis of liver without ascites Plan to address problem: supportive care, ETOH cessation counseling (5) hyperkalemia * Resolved. (6)DVT prophylaxis Current Visit: No Status: Acute Plan to address problem: Heparin BID Plan of care discussed with the patient and SPOUSE discharge following 24 hour urine collection. Leave permcath in place till re- evaluation done by outside insurance examiner. Disposition: [id number] HOME UNDER HOME [facility] Time spent for discharge: 35 mins Exam - Constitutional Vitals: Temp Pulse Resp BP Pulse Ox 97.9 F 73 18 153/91 98 01/26/18 08:16 01/26/18 08:16 01/26/18 08:16 01/26/18 08:16 01/26/18 08:16 Plan Activity: advance as tolerated, fall precautions Diet: diabetic, renal Additional Instructions: follow with primary insurance examiner in 3-5 days. Discontinue Permacath if primary insurance examiner deemed not needed any more on follow up Follow up with: PRIMARY CARE, [Primary Care Provider] - 7 Days Prescriptions: cloNIDine [Catapres] 0.1 mg PO TID PRN #90 tablet PRN Reason: Blood Pressure Ferrous Sulfate [Feosol 325 MG tab] 325 mg PO DAILY #30 tablet Gabapentin [Neurontin] 100 mg PO Q8HR #90 capsule
[2018-01-26] MEDS: HEPARIN SUB-Q SCH (09:52)
[2018-01-26] MEDS: ULORIC PO SCH (09:55)
[2018-01-26] MEDS: COLCHICINE PO SCH (09:55)
[2018-01-26] MEDS: MAG-OX PO SCH (09:56)
[2018-01-26] MEDS: NORVASC PO SCH (09:56)
[2018-01-26] MEDS: PROTONIX PO SCH (09:56)
[2018-01-26] MEDS: THERAGRAN-M Tab PO SCH (09:56)
[2018-01-26] MEDS: FEOSOL PO SCH (09:56)
[2018-01-26] MEDS: PEPCID PO SCH (09:58)
[2018-01-26] MEDS: TENORMIN PO SCH (09:58)
[2018-01-26] MEDS: SODIUM CHLORIDE FLUSH SYRINGE 10 ML IV SCH (10:00)
[2018-01-26 12:23] VITALS: BP 139/89
[2018-01-26 12:49] LABS: Creatinine,Urine 48.7 mg/dL (0.1-20.0); Creatinine,Urine 48.9 mg/dL (0.1-20.0)
== END 2018-01-26 13:05 | disposition home health service (06) | DRG 673 ==
LOC: 3A 18:59 → 3B-SURG 21:14
PROVIDERS: ADMIT Internal Medicine; ATTEND Internal Medicine
PROC: 0JH63XZ Insertion of Tunneled Vascular Access Device into Chest Subcutaneous Tissue and Fascia, Percutaneous Approach (ICD-10-PCS; principal; 2018-01-20)
PROC: 02H633Z Insertion of Infusion Device into Right Atrium, Percutaneous Approach (ICD-10-PCS; 2018-01-20)
PROC: B2141ZZ Fluoroscopy of Right Heart using Low Osmolar Contrast (ICD-10-PCS; 2018-01-20)
PROC: B244ZZZ Ultrasonography of Right Heart (ICD-10-PCS; 2018-01-20)
PROC: 5A1D70Z Performance of Urinary Filtration, Intermittent, Less than 6 Hours Per Day (ICD-10-PCS; 2018-01-20)
PROC: 5A1D70Z Performance of Urinary Filtration, Intermittent, Less than 6 Hours Per Day (ICD-10-PCS; 2018-01-21)
PROC: 5A1D70Z Performance of Urinary Filtration, Intermittent, Less than 6 Hours Per Day (ICD-10-PCS; 2018-01-22)
DX: I12.0 Hypertensive chronic kidney disease with stage 5 chronic kidney disease or end stage renal disease (principal); N18.6 End stage renal disease; N17.9 Acute kidney failure, unspecified; R65.10 Systemic inflammatory response syndrome (SIRS) of non-infectious origin without acute organ dysfunction; F10.19 Alcohol abuse with unspecified alcohol-induced disorder; E87.5 Hyperkalemia; K70.30 Alcoholic cirrhosis of liver without ascites; D63.1 Anemia in chronic kidney disease; M10.9 Gout, unspecified; Y90.0 Blood alcohol level of less than 20 mg/100 ml; Z82.49 Family history of ischemic heart disease and other diseases of the circulatory system; Z91.013 Allergy to seafood; Z79.899 Other long term (current) drug therapy; Z71.41 Alcohol abuse counseling and surveillance of alcoholic; Z99.2 Dependence on renal dialysis
CPT/HCPCS: 36415; 36558; 71045; 76937; 77001; 80048; 80053; 81001; 82565; 82570; 82575; 82962; 85007; 85025; 85027; C1750; J0885; J1644; J1815; J2250; J3010; J7030

== ENCOUNTER 2018-02-08 10:20 | Outpatient (CLI) | payer BC ==
--- NOTE | 2018-02-08 12:08 | XRay Report ---
LEFT HIP, 2 views: History: Pain in left hip. The internally fixated left intertrochanteric fracture is unchanged in position and alignment since 12/31/17 exam. Calcified callus is identified at the fracture site consistent with a healing fracture. There is normal articulation at the left hip. The visualized pelvis is intact. IMPRESSION: Healing left femur fracture as described.
== END 2018-02-08 10:21 | disposition home or self-care (01) ==
LOC: XRAY 10:20
PROVIDERS: ATTEND Orthopaedic Surgery
DX: M25.552 Pain in left hip (principal); I12.0 Hypertensive chronic kidney disease with stage 5 chronic kidney disease or end stage renal disease; E11.22 Type 2 diabetes mellitus with diabetic chronic kidney disease; N18.6 End stage renal disease; E78.00 Pure hypercholesterolemia, unspecified; M10.9 Gout, unspecified; Z91.013 Allergy to seafood